=== PATIENT | female | born 1950 | race Hispanic/Latino ===

== ENCOUNTER 2018-01-05 19:37 | Inpatient (IN) | payer MEDICARE, BC ==
[2018-01-05 20:44] LABS: BASO # 0.1 K/uL (0.0-0.2); BASO % 1.1 % (0.0-2.0); EOS # 0.1 K/uL (0.0-0.7); EOS % 0.8 % (0.0-4.0); HEMOGLOBIN 14.3 g/dL (12.0-16.0); LYMPH # 2.7 K/uL (1.0-4.3); LYMPH % 39.3 % (20.0-40.0); MEAN CELL VOLUME 95.1 fl (81.0-99.0); MEAN CORPUSCULAR HGB CONC 33.6 g/dL (33.0-37.0); MEAN PLATELET VOLUME 8.6 fl (7.2-11.7); MONO # 0.6 K/uL (0.0-0.8); NEUT # 3.5 K/uL (1.8-7.0); NEUT % 50.8 % (50.0-75.0); RBC 4.47 Mil/uL (3.80-5.20); RED CELL DISTRIBUTION WIDTH 13.9 % (11.5-14.5); WHITE BLOOD COUNT 6.9 K/uL (4.8-10.8)
[2018-01-05 20:54] LABS: INR 0.9; PROTHROMBIN TIME 10.3 Seconds (9.8-13.1)
[2018-01-05 20:57] LABS: PARTIAL THROMBOPLASTIN TIME 29.2 Seconds (25.6-37.1)
[2018-01-05 21:02] LABS: ALB/GLOB RATIO 1.7 (1.0-2.1); ALT/SGPT 19 U/L (9-52); AST/SGOT 20 U/L (14-36); BLOOD UREA NITROGEN 12 mg/dl (7-17); CALCIUM 9.4 mg/dL (8.4-10.2); GFR NON-AFRICAN AMERICAN > 60
[2018-01-05 21:17] LABS: OPIATES, UR NEGATIVE (NEGATIVE)
--- NOTE | 2018-01-05 21:18 | ED PDOC ---
HPI: Psych/Substance Abuse Time Seen by Provider: 01/05/18 19:51 Chief Complaint (Nursing): Alcohol Ingestion Chief Complaint (Provider): Alcohol Ingestion ED Caveat: Intoxicated History Per: Patient, EMS History/Exam Limitations: intoxication Onset/Duration Of Symptoms: Hrs Current Symptoms Are (Timing): Still Present Modifying Factor(s): Alcohol Additional Complaint(s): Nisreen Cerrato is a 67 year old female with a past medical history of diabetes who was brought to the ED by EMS for evaluation of alcohol intoxication and fall at stoop of her building. Patient denies any head injury or loss of consciousness. She also complains of left hip pain, nausea, and vomiting. Further history was unobtainable due to patients intoxicated state. PMD: none provided Past Medical History Reviewed: Historical Data, Nursing Documentation, Vital Signs Vital Signs: Last Vital Signs Temp 98.2 F 01/05/18 19:41 Pulse 107 H 01/05/18 19:41 Resp 16 01/05/18 19:41 BP 205/100 H 01/05/18 19:41 Pulse Ox 95 01/05/18 19:41 - Medical History PMH: Diabetes (type II), HTN, Hypercholesterolemia, Hyperlipidemia, Pneumonia Denies: HIV, Chronic Kidney Disease - Surgical History Surgical History: - Family History Family History: States: Unknown Family Hx - Social History Current smoker - smoking cessation education provided: No Alcohol: > 2 Drinks/Day Drugs: Denies - Home Medications Home Medications: Ambulatory Orders Medication Instructions Recorded Atorvastatin [Lipitor] 10 mg PO DAILY 07/25/15 Olmesartan Medoxomil [Benicar] 40 mg PO DAILY 07/25/15 Azithromycin [Zithromax] 500 mg PO DAILY #10 tablet 07/28/15 Canagliflozin/Metformin HCl 1 tab PO BID #60 tab 07/28/15 [Invokamet 150-1,000 mg Tablet] Insulin Detemir [Levemir] 10 unit SC HS #0 08/06/15 SITagliptin [Januvia] 100 mg PO DAILY #0 tab 08/06/15 - Allergies Allergies/Adverse Reactions: Allergies Allergy/AdvReac Type Severity Reaction Status Date / Time No Known Allergies Allergy Verified 01/05/18 19:41 Review of Systems ROS Statement: Except As Marked, All Systems Reviewed And Found Negative Review Of Systems: ROS cannot be obtained secondary to pt's inabilty to answer questions. (unreliable) Gastrointestinal: Negative for: Nausea, Vomiting Musculoskeletal: Positive for: Other (Hip Pain) Neurological: Negative for: Other (loss of consciousness) Physical Exam - Reviewed Nursing Documentation Reviewed: Yes Vital Signs Reviewed: Yes - Physical Exam Appears: Positive for: Non-toxic, No Acute Distress Head Exam: Positive for: NORMAL INSPECTION, NORMOCEPHALIC. Negative for: ATRAUMATIC (abrasion to left forehead) Skin: Positive for: Normal Color, Warm, DRY Eye Exam: Positive for: EOMI, Normal appearance, PERRL ENT: Positive for: Normal ENT Inspection Neck: Positive for: Normal, Painless ROM Cardiovascular/Chest: Positive for: Regular Rate, Rhythm. Negative for: Murmur Respiratory: Positive for: Normal Breath Sounds. Negative for: Respiratory Distress Gastrointestinal/Abdominal: Positive for: Normal Exam, Soft Back: Positive for: Normal Inspection. Negative for: L CVA Tenderness, R CVA Tenderness Extremity: Positive for: Normal ROM. Negative for: Deformity, Swelling Neurologic/Psych: Positive for: Alert. Negative for: Motor/Sensory Deficits - Laboratory Results Result Diagrams: 01/05/18 20:19 01/05/18 20:19 - ECG O2 Sat by Pulse Oximetry: 95 (RA) Medical Decision Making Medical Decision Making: Time: 20:00 Impression: 67 year old female with fall in setting of alcohol abuse Plan: --CT Lower Extremity --CT Head --EKG --Alcohol Serum --CMP --Drug Screen --ED Urine Dipstick --CBC --PTT --Coag --Zofran 4 mg IV --Accucheck --Urinalysis CT Head: FINDINGS: Brain: Diffuse cerebral volume loss and chronic microvascular white matter changes. Ventricles: Unremarkable. Bones/joints: Unremarkable. No acute fracture. Soft tissues: Unremarkable. Sinuses: Unremarkable as visualized. Mastoid air cells: Unremarkable as visualized. IMPRESSION: No acute intracranial pathology or traumatic injury. CT Lower Extremity: FINDINGS: Bones/joints: Acute minimally displaced fracture of the left inferior ramus. Acute nondisplaced fracture of the posterior column of the left acetabulum with extension of the fracture plane into the left hip joint space. Small left hip joint effusion or hemarthrosis. No dislocation. Soft tissues: Unremarkable. IMPRESSION: Acute minimally displaced fracture of the left inferior ramus. Acute nondisplaced fracture of the posterior column of the left acetabulum with extension of the fracture plane into the left hip joint space. Small left hip joint effusion or hemarthrosis. 21:[address] Mejia. Patient will be admitted under Hospitalist for hip fracture. Scribe Attestation: Documented by Sandra Wlaker, acting as a scribe for Carlos Fowler MD. Provider Scribe Attestation: All medical record entries made by the Scribe were at my direction and personally dictated by me. I have reviewed the chart and agree that the record accurately reflects my personal performance of the history, physical exam, medical decision making, and the department course for this patient. I have also personally directed, reviewed, and agree with the discharge instructions and disposition. Disposition - Clinical Impression Clinical Impression: Hip fracture, left, Pubic ramus fracture - Patient ED Disposition Is Patient to be Admitted: Yes - Disposition Disposition Time: 21:55 Condition: STABLE
[2018-01-05 21:20] LABS: BARBITURATES, UR NEGATIVE (NEGATIVE); BENZODIAZEPINES, UR NEGATIVE (NEGATIVE); PHENCYCLIDINE, UR NEGATIVE (NEGATIVE)
[2018-01-05 21:25] LABS: SQUAMOUS EPITHIAL < 1 /hpf (0-5); URINE BACTERIA MOD (<OCC); URINE BILIRUBIN NEGATIVE (NEGATIVE); URINE BLOOD SMALL (NEGATIVE); URINE CLARITY SLIGHTY-CLOUDY (Clear); URINE COLOR STRAW (YELLOW); URINE GLUCOSE (UA) >=500 mg/dL (Normal); URINE LEUKOCYTE ESTERASE TRACE Leu/uL (Negative); URINE PROTEIN NEGATIVE (NEGATIVE); URINE UROBILINOGEN 0.2-1.0 mg/dL (0.2-1.0)
--- NOTE | 2018-01-05 22:13 | CP.PCM.HP ---
History of Present Illness - History of Present Illness History of Present Illness: CC: EtOH abuse, fall, L hip fx HPI: This is a 67 y/o female with HTN, HLD, and DM2 who comes in intoxicated and s/p a fall with L hip fracture. Patient was intoxicated after going out with some friends and having drinks at a nearby bar. She had returned home and sustained a fall from her stoop. She did not have any head trauma or LOC. She developed L hip pain soon after and was brought in. Patient denies any complaints at this time, states pain is controlled. Patient states in general she is active and functional. Able to walk multiple city blocks, climb several flights of stairs, and perform ADLs without problems. Patient denies CP/SOB/f/c. ROS: 14 systems reviewed, negative other than what is in HPI MHx: HTN, HLD, DM2, EtOH abuse SHx: C section Allergies: NKDA Medications: per med rec Family Hx: Cancer runs on father's side Social Hx: Lives with family, smokes 1 ppd, drinks several drinks a few times a week Surrogate Decision Maker: Son Present on Admission - Present on Admission Any Indicators Present on Admission: No Past Patient History - Past Medical History & Family History Past Medical History?: Yes - Past Social History Alcohol: > 2 Drinks/Day Drugs: Denies - CARDIAC Hx Hypercholesterolemia: Yes Hx Hypertension: Yes - PULMONARY Hx Pneumonia: Yes - NEUROLOGICAL Hx Neurological Disorder: No - HEENT Other/Comment: WEARS GLASSES - RENAL Hx Chronic Kidney Disease: No - ENDOCRINE/METABOLIC Hx Endocrine Disorders: Yes Hx Diabetes Mellitus Type 2: Yes - HEMATOLOGICAL/ONCOLOGICAL Hx Human Immunodeficiency Virus (HIV): No - INTEGUMENTARY Hx Dermatological Problems: No - MUSCULOSKELETAL/RHEUMATOLOGICAL Hx Musculoskeletal Disorders: No Hx Falls: No - GENITOURINARY/GYNECOLOGICAL Hx Genitourinary Disorders: No - PSYCHIATRIC Hx Substance Use: No - SURGICAL HISTORY Hx Surgeries: Yes Hx Section: Yes - ANESTHESIA Hx Anesthesia: Yes Hx Anesthesia Reactions: No Hx Malignant Hyperthermia: No Meds Allergies/Adverse Reactions: Allergies Allergy/AdvReac Type Severity Reaction Status Date / Time No Known Allergies Allergy Verified 01/05/18 19:41 Physical Exam - Constitutional Appears: No Acute Distress Additional comments: intoxicated - Head Exam Head Exam: ATRAUMATIC, NORMOCEPHALIC - Eye Exam Eye Exam: EOMI, PERRL - ENT Exam ENT Exam: Mucous Membranes Moist - Respiratory Exam Respiratory Exam: Clear to Auscultation Bilateral, NORMAL BREATHING PATTERN - Cardiovascular Exam Cardiovascular Exam: REGULAR RHYTHM, +S1, +S2 - GI/Abdominal Exam GI & Abdominal Exam: Normal Bowel Sounds, Soft - Extremities Exam Additional comments: L hip fx; limited mobility - Neurological Exam Neurological exam: Alert, Oriented x3 Additional comments: Patient is intoxicated - Psychiatric Exam Psychiatric exam: Normal Affect, Normal Mood - Skin Skin Exam: Dry, Warm Results - Vital Signs Recent Vital Signs: Last Vital Signs Temp 98.2 F 01/05/18 19:41 Pulse 107 H 01/05/18 19:41 Resp 16 01/05/18 19:41 BP 205/100 H 01/05/18 19:41 Pulse Ox 95 01/05/18 21:54 - Labs Result Diagrams: 01/05/18 20:19 01/05/18 20:19 Labs: Laboratory Results - last 24 hr 01/05/18 01/05/18 01/05/18 20:19 20:19 20:19 WBC 6.9 RBC 4.47 Hgb 14.3 Hct 42.5 MCV 95.1 D MCH 32.0 H MCHC 33.6 RDW 13.9 Plt Count 224 MPV 8.6 Neut % (Auto) 50.8 Lymph % (Auto) 39.3 [place] % (Auto) 8.0 Eos % (Auto) 0.8 Baso % (Auto) 1.1 Neut # (Auto) 3.5 Lymph # (Auto) 2.7 [place] # (Auto) 0.6 Eos # (Auto) 0.1 Baso # (Auto) 0.1 PT 10.3 INR 0.9 APTT 29.2 Sodium 139 Potassium 3.8 Chloride 100 Carbon Dioxide 21 L Anion Gap 22 H BUN 12 Creatinine 0.5 L Est GFR ( Amer) > 60 Est GFR (Non-Af Amer) > 60 Random Glucose 337 H Calcium 9.4 Total Bilirubin 0.2 AST 20 ALT 19 Alkaline Phosphatase 107 Total Protein 6.4 Albumin 4.0 Globulin 2.4 Albumin/Globulin Ratio 1.7 Urine Color Urine Clarity Urine pH Ur Specific [place] Urine Protein Urine Glucose (UA) Urine Ketones Urine Blood Urine Nitrate Urine Bilirubin Urine Urobilinogen Ur Leukocyte Esterase Urine RBC (Auto) Urine Microscopic WBC Ur Squamous Epith Cells Urine Bacteria Urine Opiates Screen Urine Methadone Screen Ur Barbiturates Screen Ur Phencyclidine Scrn Ur Amphetamines Screen U Benzodiazepines Scrn U Oth Cocaine Metabols U Cannabinoids Screen Alcohol, Quantitative 189 H 01/05/18 01/05/18 20:50 20:50 WBC RBC Hgb Hct MCV MCH MCHC RDW Plt Count MPV Neut % (Auto) Lymph % (Auto) [place] % (Auto) Eos % (Auto) Baso % (Auto) Neut # (Auto) Lymph # (Auto) [place] # (Auto) Eos # (Auto) Baso # (Auto) PT INR APTT Sodium Potassium Chloride Carbon Dioxide Anion Gap BUN Creatinine Est GFR ( Amer) Est GFR (Non-Af Amer) Random Glucose Calcium Total Bilirubin AST ALT Alkaline Phosphatase Total Protein Albumin Globulin Albumin/Globulin Ratio Urine Color Straw Urine Clarity Slighty-cloudy Urine pH 6.0 Ur Specific [place] 1.026 Urine Protein Negative Urine Glucose (UA) >=500 Urine Ketones 20 Urine Blood Small Urine Nitrate Positive H Urine Bilirubin Negative Urine Urobilinogen 0.2-1.0 Ur Leukocyte Esterase Trace Urine RBC (Auto) 2 Urine Microscopic WBC 5 Ur Squamous Epith Cells < 1 Urine Bacteria Mod H Urine Opiates Screen Negative Urine Methadone Screen Negative Ur Barbiturates Screen Negative Ur Phencyclidine Scrn Negative Ur Amphetamines Screen Negative U Benzodiazepines Scrn Negative U Oth Cocaine Metabols Negative U Cannabinoids Screen Negative Alcohol, Quantitative Assessment & Plan (1) Hip fracture, left Assessment and Plan: 67 y/o female with fall in setting of EtOH intoxication resulting in L hip fracture. 1) Fall/L hip fx -NPO, IVF in prep for possible surgery -Roberto consult in AM -EKG and CXR prior to surgery -Pain control per scale 2) DM2 -q6h accuchecks and SSI -Hold other medications while patient is NPO 3) HTN/HLD -- cont home medications 4) EtOH abuse -- watch for any signs of EtOH w/d 5) DVT PPx -- SCDs Status: Acute (2) DM2 (diabetes mellitus, type 2) Status: Acute (3) Hyperlipidemia Status: Chronic (4) Hypertension Status: Chronic (5) DVT prophylaxis Status: Acute
[2018-01-05] MEDS: Insulin Lispro (humaLOG) 100 Units/ml Inj SC SCH (23:45)
[2018-01-05] MEDS: Lactated Ringer's 1,000 ML IV SCH (23:49)
[2018-01-05 23:51] VITALS: O2SAT 96
[2018-01-06] MEDS: Insulin Lispro (humaLOG) 100 Units/ml Inj SC SCH ×3 (05:27→16:17)
[2018-01-06 06:35] LABS: HEMOGLOBIN 13.8 g/dL (12.0-16.0); MEAN CELL VOLUME 94.4 fl (81.0-99.0); MEAN CORPUSCULAR HEMOGLOBIN 31.9 pg (27.0-31.0); MEAN CORPUSCULAR HGB CONC 33.8 g/dL (33.0-37.0); RBC 4.32 Mil/uL (3.80-5.20); RED CELL DISTRIBUTION WIDTH 13.9 % (11.5-14.5); WHITE BLOOD COUNT 8.4 K/uL (4.8-10.8)
[2018-01-06 06:41] LABS: BLOOD UREA NITROGEN 14 mg/dl (7-17); CALCIUM 9.3 mg/dL (8.4-10.2); GFR NON-AFRICAN AMERICAN > 60
--- NOTE | 2018-01-06 08:12 | CP.PCM.CON ---
History of Present Illness - History of Present Illness History of Present Illness: Orthopedic consultation Dr. Mejia 67F complains of left hip/groin pain after fall yesterday. She says she was out with friends and fell as she was coming home. +ETOH most days. She denies head ache, head injury, pain in other extremities, numbness/tingling/CP/SOB/n/v. She was unable to walk after fall. At baseline she ambulates without assistive device, lives with son on 2nd floor walk up. PMH: HTN, DM, ETOH +smoker, smoking cessation advised Review of Systems - Review of Systems All systems: reviewed and no additional remarkable complaints except - Cardiovascular Cardiovascular: As Per HPI - Respiratory Respiratory: As Per HPI - Gastrointestinal Gastrointestinal: As Per HPI - Musculoskeletal Musculoskeletal: As Per HPI - Neurological Neurological: As Per HPI - Hematologic/Lymphatic Hematologic: absent: As Per HPI, Easy Bleeding, Easy Bruising, Lymphadenopathy, Other Past Patient History - Past Medical History & Family History Past Medical History?: Yes Past Family History: Reviewed and not pertinent - Past Social History Smoking Status: Heavy Smoker > 10 Cigarettes Daily - CARDIAC Hx Cardiac Disorders: Yes Hx Hypercholesterolemia: Yes Hx Hypertension: Yes - PULMONARY Hx Respiratory Disorders: Yes Hx Pneumonia: Yes - NEUROLOGICAL Hx Neurological Disorder: No - HEENT Hx HEENT Problems: Yes Other/Comment: WEARS GLASSES - RENAL Hx Chronic Kidney Disease: No - ENDOCRINE/METABOLIC Hx Endocrine Disorders: Yes Hx Diabetes Mellitus Type 2: Yes - HEMATOLOGICAL/ONCOLOGICAL Hx Blood Disorders: No Hx Human Immunodeficiency Virus (HIV): No - INTEGUMENTARY Hx Dermatological Problems: No - MUSCULOSKELETAL/RHEUMATOLOGICAL Hx Musculoskeletal Disorders: No Hx Falls: No - GASTROINTESTINAL Hx Gastrointestinal Disorders: No - GENITOURINARY/GYNECOLOGICAL Hx Genitourinary Disorders: No - PSYCHIATRIC Hx Psychophysiologic Disorder: No Hx Substance Use: No - SURGICAL HISTORY Hx Surgeries: Yes Hx Section: Yes - ANESTHESIA Hx Anesthesia: Yes Hx Anesthesia Reactions: No Hx Malignant Hyperthermia: No Meds Allergies/Adverse Reactions: Allergies Allergy/AdvReac Type Severity Reaction Status Date / Time squid Allergy RASH Verified 01/06/18 05:33 - Medications Medications: Current Medications Atorvastatin Calcium (Lipitor) 10 mg PO DAILY [facility] Lactated Ringer's (Lactated Ringer's) 1,000 mls @ 100 mls/hr IV .Q10H [facility] Last Admin: 01/05/18 23:49 Dose: 100 mls/hr Ibuprofen (Motrin Tab) 400 mg PO Q6H PRN PRN Reason: Pain, Mild (1-3) Insulin Detemir (Levemir) 15 units SC HS [facility] Insulin Human Lispro (Humalog) 0 units SC Q6H [facility] PRN Reason: Protocol Last Admin: 01/06/18 05:27 Dose: Not Given Insulin Human Lispro (Humalog) 0 units SC ACHS [facility] PRN Reason: Protocol Losartan Potassium (Cozaar) 100 mg PO DAILY [facility] Morphine Sulfate (Morphine) 2 mg IVP Q4 PRN PRN Reason: Pain, moderate (4-7) Last Admin: 01/06/18 05:24 Dose: 2 mg Nicotine (Nicoderm Cq) 1 patch TD DAILY [facility] Ondansetron HCl (Zofran Inj) 4 mg IVP Q6 PRN PRN Reason: Nausea/Vomiting Last Admin: 01/06/18 05:30 Dose: 4 mg Sitagliptin Phosphate (Januvia) 25 mg PO DAILY [facility] Physical Exam - Constitutional Appears: Well, No Acute Distress - Head Exam Head Exam: ATRAUMATIC - Neck Exam Neck exam: Positive for: Full Rom, Normal Inspection - Respiratory Exam Respiratory Exam: NORMAL BREATHING PATTERN - Cardiovascular Exam Additional comments: +DP/PT pulses - Extremities Exam Additional comments: sitting in chair in NAD sensation intact calves soft NT neg homans - Expanded Lower Extremities Exam Left Hip exam: tenderness Knee exam: full ROM, normal inspection Ankle exam: FULL ROM, NORMAL INSPECTION Neuro vacular tendon exam: no vascular compromise - Neurological Exam Neurological exam: Alert, Oriented x3 - Psychiatric Exam Psychiatric exam: Normal Affect, Normal Mood - Skin Skin Exam: Dry, Intact, Normal Color, Warm Results - Vital Signs Recent Vital Signs: Last Vital Signs Temp 98.8 F 01/06/18 07:43 Pulse 92 H 01/06/18 07:43 Resp 19 01/06/18 07:43 BP 134/62 01/06/18 07:43 Pulse Ox 96 01/06/18 07:43 - Labs Result Diagrams: 01/06/18 05:15 01/06/18 05:15 Labs: Laboratory Results - last 24 hr 01/05/18 01/05/18 01/05/18 20:19 20:19 20:19 WBC 6.9 RBC 4.47 Hgb 14.3 Hct 42.5 MCV 95.1 D MCH 32.0 H MCHC 33.6 RDW 13.9 Plt Count 224 MPV 8.6 Neut % (Auto) 50.8 Lymph % (Auto) 39.3 [place] % (Auto) 8.0 Eos % (Auto) 0.8 Baso % (Auto) 1.1 Neut # (Auto) 3.5 Lymph # (Auto) 2.7 [place] # (Auto) 0.6 Eos # (Auto) 0.1 Baso # (Auto) 0.1 PT 10.3 INR 0.9 APTT 29.2 Sodium 139 Potassium 3.8 Chloride 100 Carbon Dioxide 21 L Anion Gap 22 H BUN 12 Creatinine 0.5 L Est GFR ( Amer) > 60 Est GFR (Non-Af Amer) > 60 Random Glucose 337 H Calcium 9.4 Total Bilirubin 0.2 AST 20 ALT 19 Alkaline Phosphatase 107 Total Protein 6.4 Albumin 4.0 Globulin 2.4 Albumin/Globulin Ratio 1.7 Urine Color Urine Clarity Urine pH Ur Specific [place] Urine Protein Urine Glucose (UA) Urine Ketones Urine Blood Urine Nitrate Urine Bilirubin Urine Urobilinogen Ur Leukocyte Esterase Urine RBC (Auto) Urine Microscopic WBC Ur Squamous Epith Cells Urine Bacteria Urine Opiates Screen Urine Methadone Screen Ur Barbiturates Screen Ur Phencyclidine Scrn Ur Amphetamines Screen U Benzodiazepines Scrn U Oth Cocaine Metabols U Cannabinoids Screen Alcohol, Quantitative 189 H 01/05/18 01/05/18 01/06/18 20:50 20:50 05:15 WBC 8.4 RBC 4.32 Hgb 13.8 Hct 40.8 MCV 94.4 MCH 31.9 H MCHC 33.8 RDW 13.9 Plt Count 220 MPV Neut % (Auto) Lymph % (Auto) [place] % (Auto) Eos % (Auto) Baso % (Auto) Neut # (Auto) Lymph # (Auto) [place] # (Auto) Eos # (Auto) Baso # (Auto) PT INR APTT Sodium Potassium Chloride Carbon Dioxide Anion Gap BUN Creatinine Est GFR ( Amer) Est GFR (Non-Af Amer) Random Glucose Calcium Total Bilirubin AST ALT Alkaline Phosphatase Total Protein Albumin Globulin Albumin/Globulin Ratio Urine Color Straw Urine Clarity Slighty-cloudy Urine pH 6.0 Ur Specific [place] 1.026 Urine Protein Negative Urine Glucose (UA) >=500 Urine Ketones 20 Urine Blood Small Urine Nitrate Positive H Urine Bilirubin Negative Urine Urobilinogen 0.2-1.0 Ur Leukocyte Esterase Trace Urine RBC (Auto) 2 Urine Microscopic WBC 5 Ur Squamous Epith Cells < 1 Urine Bacteria Mod H Urine Opiates Screen Negative Urine Methadone Screen Negative Ur Barbiturates Screen Negative Ur Phencyclidine Scrn Negative Ur Amphetamines Screen Negative U Benzodiazepines Scrn Negative U Oth Cocaine Metabols Negative U Cannabinoids Screen Negative Alcohol, Quantitative 01/06/18 05:15 WBC RBC Hgb Hct MCV MCH MCHC RDW Plt Count MPV Neut % (Auto) Lymph % (Auto) [place] % (Auto) Eos % (Auto) Baso % (Auto) Neut # (Auto) Lymph # (Auto) [place] # (Auto) Eos # (Auto) Baso # (Auto) PT INR APTT Sodium 140 Potassium 4.5 Chloride 102 Carbon Dioxide 23 Anion Gap 20 BUN 14 Creatinine 0.5 L Est GFR ( Amer) > 60 Est GFR (Non-Af Amer) > 60 Random Glucose 185 H Calcium 9.3 Total Bilirubin AST ALT Alkaline Phosphatase Total Protein Albumin Globulin Albumin/Globulin Ratio Urine Color Urine Clarity Urine pH Ur Specific [place] Urine Protein Urine Glucose (UA) Urine Ketones Urine Blood Urine Nitrate Urine Bilirubin Urine Urobilinogen Ur Leukocyte Esterase Urine RBC (Auto) Urine Microscopic WBC Ur Squamous Epith Cells Urine Bacteria Urine Opiates Screen Urine Methadone Screen Ur Barbiturates Screen Ur Phencyclidine Scrn Ur Amphetamines Screen U Benzodiazepines Scrn U Oth Cocaine Metabols U Cannabinoids Screen Alcohol, Quantitative < 10 - Impressions Impression: atient Name / ID : PERRI TARIQ / [id number] Exam Date : 01/05/2018 20:53:58 ( Approved ) Study Comment : Sex / Age : F / [id number] Creator : Elie Enriquez MD Dictator : Elie Enriquez MD Stage Technician : Seed Corn Manager Production : Elie Enriquez MD Approver2 : Report Date : 01/06/2018 09:58:12 My Comment : Date of service: 01/05/2018 PROCEDURE: CT of the Left Hip. HISTORY: hip pain COMPARISON: None available. TECHNIQUE: Contiguous axial images of the left hip were obtained. Coronal and sagittal reformats were generated. This CT exam was performed using one or more of the following dose reduction techniques: Automated exposure control, adjustment of the mA and/or kV according to patient size, and/or use of iterative reconstruction technique. Radiation dose: Total DLP = 594.00 mGy-cm FINDINGS: BONES: There is a comminuted fracture of the posterior column of the left acetabulum extending into the hip joint spaces. There is also a fracture of the left inferior pubic ramus. Left femoral head and neck intact and appropriately located. LEFT HIP JOINT: Unremarkable. No dislocation. No degenerative changes. SOFT TISSUES: Suspect the diffusion-hemarthrosis There is an elliptical shaped cystic structure within the left aspect of the pelvis that measures approximately 7.4 x 5.0 x 3.8 cm likely representing a large left adnexal cyst. Pelvic ultrasound followup could B performed to confirm IMPRESSION: Unremarkable CT of the left hip. Fracture of the posterior column left acetabulum and left inferior pubic ramus with suspected small hemarthrosis. No evidence of dislocation. Of large left adnexal cyst. Follow-up pelvic ultrasound could confirm. Assessment & Plan (1) Closed left acetabular fracture Assessment and Plan: non operative strict NWB LLE VTE proph PT/OT pain mgmt resume diet adnexal mass noted on hip CT, defer to hospitalist, notified d/w Dr. Mejia, agrees with above Status: Acute (2) Closed fracture of left inferior pubic ramus Assessment and Plan: see above Status: Acute (3) UTI (urinary tract infection) Assessment and Plan: UTI on admission +nitrites defer to medical team for mgmt ucx ordered Status: Acute
--- NOTE | 2018-01-06 08:29 | CARD ---
APPROVED REPORT Date of service: 01/05/2018 <Conclusion> Normal sinus rhythm Possible Anterior infarct, age undetermined Abnormal ECG
[2018-01-06] MEDS: Lactated Ringer's 1,000 ML IV SCH (09:11)
--- NOTE | 2018-01-06 09:28 | CT ---
Date of service: 01/05/2018 PROCEDURE: CT HEAD WITHOUT CONTRAST. HISTORY: head injury COMPARISON: None available. TECHNIQUE: Axial computed tomography images were obtained through the head/brain without intravenous contrast. Radiation dose: Total exam DLP = 877.14 mGy-cm. This CT exam was performed using one or more of the following dose reduction techniques: Automated exposure control, adjustment of the mA and/or kV according to patient size, and/or use of iterative reconstruction technique. FINDINGS: HEMORRHAGE: No intracranial hemorrhage. BRAIN: There is mild diffuse/confluent chronic periventricular white matter ischemic changes seen extending peripherally into the deep and subcortical white matter both cerebral hemispheres. Significant central volume loss evidenced by disproportionate enlargement of the ventricles compared sulci. Mild vascular calcifications both carotid siphons. VENTRICLES: Marked dilatation of the 3rd and lateral ventricles felt to be secondary to significant central volume loss. The ventricles do not appear to be under tension CALVARIUM: Calvarium intact PARANASAL SINUSES: Unremarkable as visualized. No significant inflammatory changes. MASTOID AIR CELLS: Unremarkable as visualized. No inflammatory changes. OTHER FINDINGS: None. IMPRESSION: No acute intracranial hemorrhage. Mild diffuse confluent chronic white matter ischemic changes. Significant central volume loss with marked disproportion enlargement of the ventricles compared sulci.
--- NOTE | 2018-01-06 10:00 | CT ---
Date of service: 01/05/2018 PROCEDURE: CT of the Left Hip. HISTORY: hip pain COMPARISON: None available. TECHNIQUE: Contiguous axial images of the left hip were obtained. Coronal and sagittal reformats were generated. This CT exam was performed using one or more of the following dose reduction techniques: Automated exposure control, adjustment of the mA and/or kV according to patient size, and/or use of iterative reconstruction technique. Radiation dose: Total DLP = 594.00 mGy-cm FINDINGS: BONES: There is a comminuted fracture of the posterior column of the left acetabulum extending into the hip joint spaces. There is also a fracture of the left inferior pubic ramus. Left femoral head and neck intact and appropriately located. LEFT HIP JOINT: Unremarkable. No dislocation. No degenerative changes. SOFT TISSUES: Suspect the diffusion-hemarthrosis There is an elliptical shaped cystic structure within the left aspect of the pelvis that measures approximately 7.4 x 5.0 x 3.8 cm likely representing a large left adnexal cyst. Pelvic ultrasound followup could B performed to confirm IMPRESSION: Unremarkable CT of the left hip. Fracture of the posterior column left acetabulum and left inferior pubic ramus with suspected small hemarthrosis. No evidence of dislocation. Of large left adnexal cyst. Follow-up pelvic ultrasound could confirm.
--- NOTE | 2018-01-06 10:02 | CP.PCM.PN ---
<Madi Prabhakar - Last Filed: 01/06/18 11:19> Subjective - Date & Time of Evaluation Date of Evaluation: 01/06/18 Time of Evaluation: 08:15 - Subjective Subjective: No overnight events. Patient sitting up in bed, no complaints. Pain controlled. Objective - Vital Signs/Intake and Output Vital Signs (last 24 hours): Temp Pulse Resp BP Pulse Ox 98.8 F 92 H 19 134/62 96 01/06/18 07:43 01/06/18 07:43 01/06/18 07:43 01/06/18 07:43 01/06/18 07:43 Intake and Output: 01/06/18 01/06/18 06:59 18:59 Intake Total 500 Output Total 1100 Balance -600 - Medications Medications: Current Medications Atorvastatin Calcium (Lipitor) 10 mg PO DAILY [facility] Last Admin: 01/06/18 09:08 Dose: 10 mg Lactated Ringer's (Lactated Ringer's) 1,000 mls @ 100 mls/hr IV .Q10H [facility] Last Admin: 01/06/18 09:11 Dose: 100 mls/hr Ibuprofen (Motrin Tab) 400 mg PO Q6H PRN PRN Reason: Pain, Mild (1-3) Insulin Detemir (Levemir) 15 units SC HS [facility] Insulin Human Lispro (Humalog) 0 units SC ACHS [facility] PRN Reason: Protocol Losartan Potassium (Cozaar) 100 mg PO DAILY [facility] Last Admin: 01/06/18 09:07 Dose: 100 mg Morphine Sulfate (Morphine) 2 mg IVP Q4 PRN PRN Reason: Pain, moderate (4-7) Last Admin: 01/06/18 05:24 Dose: 2 mg Nicotine (Nicoderm Cq) 1 patch TD DAILY [facility] Last Admin: 01/06/18 09:07 Dose: 1 patch Ondansetron HCl (Zofran Inj) 4 mg IVP Q6 PRN PRN Reason: Nausea/Vomiting Last Admin: 01/06/18 05:30 Dose: 4 mg Sitagliptin Phosphate (Januvia) 25 mg PO DAILY [facility] - Labs Labs: 01/06/18 05:15 01/06/18 05:15 PT 10.3 Seconds (9.8-13.1) 01/05/18 20:19 INR 0.9 01/05/18 20:19 APTT 29.2 Seconds (25.6-37.1) 01/05/18 20:19 - Constitutional Appears: Non-toxic, No Acute Distress - Head Exam Head Exam: ATRAUMATIC, NORMAL INSPECTION, NORMOCEPHALIC - Respiratory Exam Respiratory Exam: NORMAL BREATHING PATTERN - Cardiovascular Exam Cardiovascular Exam: REGULAR RHYTHM, +S1, +S2 - Neurological Exam Neurological Exam: Alert, Awake - Psychiatric Exam Psychiatric exam: Normal Affect, Normal Mood - Skin Skin Exam: Dry, Intact Assessment and Plan - Assessment and Plan (Free Text) Assessment: 67 y/o female with fall in setting of EtOH intoxication resulting in L hip fracture. (1) Hip fracture, left -status post fall -NPO, IVF in prep for possible surgery -Roberto consult in AM -Pain control per scale 2) DM2 -insulin dependent, chronic -achs accuschecks and sliding scale -Hold other medications while patient is NPO 3) HTN/HLD -- cont home medications 4) EtOH abuse -- watch for any signs of EtOH w/d 5) DVT PPx -- SCDs, pt may go to OR <Ada Phillips - Last Filed: 01/06/18 18:14> Objective - Vital Signs/Intake and Output Vital Signs (last 24 hours): Temp Pulse Resp BP Pulse Ox 98.6 F 92 H 18 166/72 H 96 01/06/18 16:06 01/06/18 16:06 01/06/18 16:06 01/06/18 16:06 01/06/18 16:06 Intake and Output: 01/06/18 01/06/18 06:59 18:59 Intake Total 500 Output Total 1100 Balance -600 - Labs Labs: 01/06/18 05:15 01/06/18 05:15 PT 10.3 Seconds (9.8-13.1) 01/05/18 20:19 INR 0.9 01/05/18 20:19 APTT 29.2 Seconds (25.6-37.1) 01/05/18 20:19 Attending/Attestation - Attestation I have personally seen and examined this patient.: Yes I have fully participated in the care of the patient.: Yes I have reviewed all pertinent clinical information, including history, physical exam and plan: Yes Notes (Text): 01/06/18 18:14 Seen, examined, and discussed with residents Drs. Prabhakar and Brady. Agree with findings and plan as above.
--- NOTE | 2018-01-06 11:59 | RAD ---
Date of service: 01/05/2018 HISTORY: admit COMPARISON: Comparison made with chest radiograph 08/03/2015. FINDINGS: LUNGS: No active pulmonary disease. PLEURA: No significant pleural effusion identified, no pneumothorax apparent. CARDIOVASCULAR: Normal. OSSEOUS STRUCTURES: No significant abnormalities. VISUALIZED UPPER ABDOMEN: Normal. OTHER FINDINGS: None. IMPRESSION: No active disease.
--- NOTE | 2018-01-06 13:40 | CP.PCM.DIS ---
<Madi Prabhakar - Last Filed: 01/06/18 15:14> Provider - Provider Date of Admission: 01/05/18 21:41 Attending physician: Weston Rogers MD Time Spent in preparation of Discharge (in minutes): 35 Diagnosis - Discharge Diagnosis (1) Closed fracture of left inferior pubic ramus Status: Acute (2) Closed left acetabular fracture Status: Acute (3) DM2 (diabetes mellitus, type 2) Status: Chronic Comment: resume [facility] Hospital Course - Lab Results Lab Results: Most Recent Lab Values WBC 8.4 K/uL (4.8-10.8) 01/06/18 05:15 RBC 4.32 Mil/uL (3.80-5.20) 01/06/18 05:15 Hgb 13.8 g/dL (12.0-16.0) 01/06/18 05:15 Hct 40.8 % (34.0-47.0) 01/06/18 05:15 MCV 94.4 fl (81.0-99.0) 01/06/18 05:15 MCH 31.9 pg (27.0-31.0) H 01/06/18 05:15 MCHC 33.8 g/dL (33.0-37.0) 01/06/18 05:15 RDW 13.9 % (11.5-14.5) 01/06/18 05:15 Plt Count 220 K/uL (130-400) 01/06/18 05:15 MPV 8.6 fl (7.2-11.7) 01/05/18 20:19 Neut % (Auto) 50.8 % (50.0-75.0) 01/05/18 20:19 Lymph % (Auto) 39.3 % (20.0-40.0) 01/05/18 20:19 Andrews % (Auto) 8.0 % (0.0-10.0) 01/05/18 20:19 Eos % (Auto) 0.8 % (0.0-4.0) 01/05/18 20:19 Baso % (Auto) 1.1 % (0.0-2.0) 01/05/18 20:19 Neut # (Auto) 3.5 K/uL (1.8-7.0) 01/05/18 20:19 Lymph # (Auto) 2.7 K/uL (1.0-4.3) 01/05/18 20:19 Andrews # (Auto) 0.6 K/uL (0.0-0.8) 01/05/18 20:19 Eos # (Auto) 0.1 K/uL (0.0-0.7) 01/05/18 20:19 Baso # (Auto) 0.1 K/uL (0.0-0.2) 01/05/18 20:19 PT 10.3 Seconds (9.8-13.1) 01/05/18 20:19 INR 0.9 01/05/18 20:19 APTT 29.2 Seconds (25.6-37.1) 01/05/18 20:19 Sodium 140 mmol/l (132-148) 01/06/18 05:15 Potassium 4.5 MMOL/L (3.6-5.0) 01/06/18 05:15 Chloride 102 mmol/L (98-107) 01/06/18 05:15 Carbon Dioxide 23 mmol/L (22-30) 01/06/18 05:15 Anion Gap 20 (10-20) 01/06/18 05:15 BUN 14 mg/dl (7-17) 01/06/18 05:15 Creatinine 0.5 mg/dl (0.7-1.2) L 01/06/18 05:15 Est GFR ( Amer) > 60 01/06/18 05:15 Est GFR (Non-Af Amer) > 60 01/06/18 05:15 POC Glucose (mg/dL) 172 mg/dL (65-110) H 01/06/18 10:48 Random Glucose 185 mg/dL (65-105) H 01/06/18 05:15 Calcium 9.3 mg/dL (8.4-10.2) 01/06/18 05:15 Total Bilirubin 0.2 mg/dl (0.2-1.3) 01/05/18 20:19 AST 20 U/L (14-36) 01/05/18 20:19 ALT 19 U/L (9-52) 01/05/18 20:19 Alkaline Phosphatase 107 U/L (38-126) 01/05/18 20:19 Total Protein 6.4 G/DL (6.3-8.2) 01/05/18 20:19 Albumin 4.0 g/dL (3.5-5.0) 01/05/18 20:19 Globulin 2.4 gm/dL (2.2-3.9) 01/05/18 20:19 Albumin/Globulin Ratio 1.7 (1.0-2.1) 01/05/18 20:19 Urine Color Straw (YELLOW) 01/05/18 20:50 Urine Clarity Slighty-cloudy (Clear) 01/05/18 20:50 Urine pH 6.0 (5.0-8.0) 01/05/18 20:50 Ur Specific [place] 1.026 (1.003-1.030) 01/05/18 20:50 Urine Protein Negative mg/dL (NEGATIVE) 01/05/18 20:50 Urine Glucose (UA) >=500 mg/dL (Normal) 01/05/18 20:50 Urine Ketones 20 mg/dL (NEGATIVE) 01/05/18 20:50 Urine Blood Small (NEGATIVE) 01/05/18 20:50 Urine Nitrate Positive (NEGATIVE) H 01/05/18 20:50 Urine Bilirubin Negative (NEGATIVE) 01/05/18 20:50 Urine Urobilinogen 0.2-1.0 mg/dL (0.2-1.0) 01/05/18 20:50 Ur Leukocyte Esterase Trace Rosmery/uL (Negative) 01/05/18 20:50 Urine RBC (Auto) 2 /hpf (0-3) 01/05/18 20:50 Urine Microscopic WBC 5 /hpf (0-5) 01/05/18 20:50 Ur Squamous Epith Cells < 1 /hpf (0-5) 01/05/18 20:50 Urine Bacteria Mod (<OCC) H 01/05/18 20:50 Urine Opiates Screen Negative (NEGATIVE) 01/05/18 20:50 Urine Methadone Screen Negative (NEGATIVE) 01/05/18 20:50 Ur Barbiturates Screen Negative (NEGATIVE) 01/05/18 20:50 Ur Phencyclidine Scrn Negative (NEGATIVE) 01/05/18 20:50 Ur Amphetamines Screen Negative (NEGATIVE) 01/05/18 20:50 U Benzodiazepines Scrn Negative (NEGATIVE) 01/05/18 20:50 U Oth Cocaine Metabols Negative (NEGATIVE) 01/05/18 20:50 U Cannabinoids Screen Negative (NEGATIVE) 01/05/18 20:50 Alcohol, Quantitative < 10 mg/dl (0-10) 01/06/18 05:15 - Hospital Course Hospital Course: 67 year old female admitted in setting of EtOH intoxication s/p fall resulting in left acetabulum and left inferior pubic ramus. Seen and evaluated by Ortho no surgical intervention. UA showed positive nitrates/trace leukes. Urine culture pending. Head CT negative. Pt discharged to Acute Rehab Unit. Discharge Plan - Follow Up Plan Condition: STABLE Disposition: REHAB FACILITY/REHAB UNIT Instructions: Hip Fracture Referrals: Irvin Mejia III, MD [Staff Provider] - <Ada Phillips - Last Filed: 01/06/18 18:18> Provider - Provider Date of Admission: 01/05/18 21:41 Attending physician: Weston Rogers MD Hospital Course - Lab Results Lab Results: Most Recent Lab Values WBC 8.4 K/uL (4.8-10.8) 01/06/18 05:15 RBC 4.32 Mil/uL (3.80-5.20) 01/06/18 05:15 Hgb 13.8 g/dL (12.0-16.0) 01/06/18 05:15 Hct 40.8 % (34.0-47.0) 01/06/18 05:15 MCV 94.4 fl (81.0-99.0) 01/06/18 05:15 MCH 31.9 pg (27.0-31.0) H 01/06/18 05:15 MCHC 33.8 g/dL (33.0-37.0) 01/06/18 05:15 RDW 13.9 % (11.5-14.5) 01/06/18 05:15 Plt Count 220 K/uL (130-400) 01/06/18 05:15 MPV 8.6 fl (7.2-11.7) 01/05/18 20:19 Neut % (Auto) 50.8 % (50.0-75.0) 01/05/18 20:19 Lymph % (Auto) 39.3 % (20.0-40.0) 01/05/18 20:19 Andrews % (Auto) 8.0 % (0.0-10.0) 01/05/18 20:19 Eos % (Auto) 0.8 % (0.0-4.0) 01/05/18 20:19 Baso % (Auto) 1.1 % (0.0-2.0) 01/05/18 20:19 Neut # (Auto) 3.5 K/uL (1.8-7.0) 01/05/18 20:19 Lymph # (Auto) 2.7 K/uL (1.0-4.3) 01/05/18 20:19 Andrews # (Auto) 0.6 K/uL (0.0-0.8) 01/05/18 20:19 Eos # (Auto) 0.1 K/uL (0.0-0.7) 01/05/18 20:19 Baso # (Auto) 0.1 K/uL (0.0-0.2) 01/05/18 20:19 PT 10.3 Seconds (9.8-13.1) 01/05/18 20:19 INR 0.9 01/05/18 20:19 APTT 29.2 Seconds (25.6-37.1) 01/05/18 20:19 Sodium 140 mmol/l (132-148) 01/06/18 05:15 Potassium 4.5 MMOL/L (3.6-5.0) 01/06/18 05:15 Chloride 102 mmol/L (98-107) 01/06/18 05:15 Carbon Dioxide 23 mmol/L (22-30) 01/06/18 05:15 Anion Gap 20 (10-20) 01/06/18 05:15 BUN 14 mg/dl (7-17) 01/06/18 05:15 Creatinine 0.5 mg/dl (0.7-1.2) L 01/06/18 05:15 Est GFR ( Amer) > 60 01/06/18 05:15 Est GFR (Non-Af Amer) > 60 01/06/18 05:15 POC Glucose (mg/dL) 247 mg/dL (65-110) H 01/06/18 15:40 Random Glucose 185 mg/dL (65-105) H 01/06/18 05:15 Calcium 9.3 mg/dL (8.4-10.2) 01/06/18 05:15 Total Bilirubin 0.2 mg/dl (0.2-1.3) 01/05/18 20:19 AST 20 U/L (14-36) 01/05/18 20:19 ALT 19 U/L (9-52) 01/05/18 20:19 Alkaline Phosphatase 107 U/L (38-126) 01/05/18 20:19 Total Protein 6.4 G/DL (6.3-8.2) 01/05/18 20:19 Albumin 4.0 g/dL (3.5-5.0) 01/05/18 20:19 Globulin 2.4 gm/dL (2.2-3.9) 01/05/18 20:19 Albumin/Globulin Ratio 1.7 (1.0-2.1) 01/05/18 20:19 25-OH Vitamin D Total 37.0 NG/ML (30.0-100.0) 01/06/18 09:11 Urine Color Straw (YELLOW) 01/05/18 20:50 Urine Clarity Slighty-cloudy (Clear) 01/05/18 20:50 Urine pH 6.0 (5.0-8.0) 01/05/18 20:50 Ur Specific [place] 1.026 (1.003-1.030) 01/05/18 20:50 Urine Protein Negative mg/dL (NEGATIVE) 01/05/18 20:50 Urine Glucose (UA) >=500 mg/dL (Normal) 01/05/18 20:50 Urine Ketones 20 mg/dL (NEGATIVE) 01/05/18 20:50 Urine Blood Small (NEGATIVE) 01/05/18 20:50 Urine Nitrate Positive (NEGATIVE) H 01/05/18 20:50 Urine Bilirubin Negative (NEGATIVE) 01/05/18 20:50 Urine Urobilinogen 0.2-1.0 mg/dL (0.2-1.0) 01/05/18 20:50 Ur Leukocyte Esterase Trace Rosmery/uL (Negative) 01/05/18 20:50 Urine RBC (Auto) 2 /hpf (0-3) 01/05/18 20:50 Urine Microscopic WBC 5 /hpf (0-5) 01/05/18 20:50 Ur Squamous Epith Cells < 1 /hpf (0-5) 01/05/18 20:50 Urine Bacteria Mod (<OCC) H 01/05/18 20:50 Urine Opiates Screen Negative (NEGATIVE) 01/05/18 20:50 Urine Methadone Screen Negative (NEGATIVE) 01/05/18 20:50 Ur Barbiturates Screen Negative (NEGATIVE) 01/05/18 20:50 Ur Phencyclidine Scrn Negative (NEGATIVE) 01/05/18 20:50 Ur Amphetamines Screen Negative (NEGATIVE) 01/05/18 20:50 U Benzodiazepines Scrn Negative (NEGATIVE) 01/05/18 20:50 U Oth Cocaine Metabols Negative (NEGATIVE) 01/05/18 20:50 U Cannabinoids Screen Negative (NEGATIVE) 01/05/18 20:50 Alcohol, Quantitative < 10 mg/dl (0-10) 01/06/18 05:15 Attending/Attestation - Attestation I have personally seen and examined this patient.: Yes I have fully participated in the care of the patient.: Yes I have reviewed all pertinent clinical information, including history, physical exam and plan: Yes Notes (Text): 01/06/18 18:18 Seen, examined, and discussed with residents Drs. Prabhakar and Brady. Agree with findings and plan as above.
[2018-01-06 16:06] VITALS: BP 166/72; PULSE 92; RESP 18; TEMP 98.6
[2018-01-06] MEDS ORDERED: Insulin Detemir 100 Units/ml Inj SC SCH (22:00)
== END 2018-01-06 16:29 | DRG 535 ==
LOC: H.ER 19:37 → H.ERHOLD 21:41 → H.MEDSURG1 23:24
PROVIDERS: ADMIT Internal Medicine; ATTEND Internal Medicine
DX: S32.592A Other specified fracture of left pubis, initial encounter for closed fracture (principal); S32.442A Displaced fracture of posterior column [ilioischial] of left acetabulum, initial encounter for closed fracture; N39.0 Urinary tract infection, site not specified; M25.052 Hemarthrosis, left hip; F10.129 Alcohol abuse with intoxication, unspecified; Y90.6 Blood alcohol level of 120-199 mg/100 ml; E11.9 Type 2 diabetes mellitus without complications; I10 Essential (primary) hypertension; E78.5 Hyperlipidemia, unspecified; E78.00 Pure hypercholesterolemia, unspecified; W10.8XXA Fall (on) (from) other stairs and steps, initial encounter; F17.210 Nicotine dependence, cigarettes, uncomplicated; Z79.4 Long term (current) use of insulin; Z87.01 Personal history of pneumonia (recurrent); Z79.84 Long term (current) use of oral hypoglycemic drugs; Y92.89 Other specified places as the place of occurrence of the external cause

== ENCOUNTER 2018-01-06 15:38 | Inpatient (IN) | payer MEDICARE, BC ==
[2018-01-06 16:03] VITALS: BMI 25.7
[2018-01-06] MEDS: Morphine 15 mg Immediate Release Tab PO PRN (21:23)
[2018-01-06] MEDS: Insulin Detemir 100 Units/ml Inj SC SCH (22:13)
[2018-01-06] MEDS: Insulin Lispro (humaLOG) 100 Units/ml Inj SC SCH (22:14)
[2018-01-07] MEDS: Insulin Lispro (humaLOG) 100 Units/ml Inj SC SCH ×4 (06:53→21:10)
[2018-01-07] MEDS: Morphine 15 mg Immediate Release Tab PO PRN (08:15)
--- NOTE | 2018-01-07 12:04 | PCM.OPOC ---
Physiatry Overall Plan of Care - Overall Plan of Care Estimated Length of Stay in Weeks: 2 Rehab Impairment: Mobility, Gait, Balance Etiologic Diagnosis: Other Rehab/Medical Prognosis: Good - Anticipated Interventions Physical Therapy:: Yes Occupational Therapy:: Yes Speech Therapy:: No Recreational Therapy:: Yes - Therapy Goals Bed Mobility: Supervision Ambulation: Supervision Functional Positional Changes:: Supervision - Discharge Plan Identification of Barriers to Discharge: Home Situation Discharge Destination: Home
--- NOTE | 2018-01-07 12:09 | CP.PCM.CON ---
History of Present Illness - History of Present Illness History of Present Illness: Dr Duong PMR consultation on Nisreen Cerrato, born 1950, who has been admitted to [facility] for acute inpatient rehabilitation following an admission after a fall and a left acetabular fracture that did not require surgery. Will be TTWB as per Dr Mejia. Pain is controlled. She is having some nausea and constipation though and I will adjust both meds. 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 Review of Systems - Constitutional Constitutional: absent: Anorexia, Chills - EENT Eyes: Blurred Vision (has cataracts) Ears: absent: Decreased Hearing, Ear Discharge Nose/Mouth/Throat: absent: Nasal Congestion - Cardiovascular Cardiovascular: absent: Chest Pain - Respiratory Respiratory: absent: Dyspnea, Hemoptysis - Gastrointestinal Gastrointestinal: Constipation, Nausea, Vomiting (likely from pain meds). absent: Abdominal Pain - Integumentary Integumentary: absent: Bleeding Lesions - Neurological Neurological: absent: Abnormal Movements Past Patient History - Past Medical History & Family History Past Medical History?: Yes - Past Social History Smoking Status: Former Smoker - CARDIAC Hx Hypertension: Yes - PULMONARY Hx Respiratory Disorders: Yes Hx Pneumonia: Yes - NEUROLOGICAL Hx Neurological Disorder: No - HEENT Hx HEENT Problems: Yes Other/Comment: WEARS GLASSES - RENAL Hx Chronic Kidney Disease: No - ENDOCRINE/METABOLIC Hx Diabetes Mellitus Type 2: Yes - HEMATOLOGICAL/ONCOLOGICAL Hx Blood Disorders: No Hx AIDS: No Hx Human Immunodeficiency Virus (HIV): No - INTEGUMENTARY Hx Dermatological Problems: No - MUSCULOSKELETAL/RHEUMATOLOGICAL Hx Musculoskeletal Disorders: No Hx Falls: Yes - GASTROINTESTINAL Hx Gastrointestinal Disorders: No - GENITOURINARY/GYNECOLOGICAL Hx Genitourinary Disorders: No - PSYCHIATRIC Hx Psychophysiologic Disorder: No Hx Substance Use: No - SURGICAL HISTORY Hx Surgeries: Yes Hx Section: Yes - ANESTHESIA Hx Anesthesia: Yes Hx Anesthesia Reactions: No Hx Malignant Hyperthermia: No Meds Allergies/Adverse Reactions: Allergies Allergy/AdvReac Type Severity Reaction Status Date / Time squid Allergy RASH Verified 01/06/18 16:49 - Medications Medications: Current Medications Atorvastatin Calcium (Lipitor) 10 mg PO HS [facility] Last Admin: 01/06/18 22:09 Dose: 10 mg Ibuprofen (Motrin Tab) 400 mg PO Q6H PRN PRN Reason: Pain, Mild (1-3) Insulin Detemir (Levemir) 15 units SC [facility] Last Admin: 01/06/18 22:13 Dose: 15 units Insulin Human Lispro (Humalog) 0 units SC [facility] PRN Reason: Protocol Last Admin: 01/07/18 06:53 Dose: Not Given Losartan Potassium (Cozaar) 100 mg PO DAILY [facility] Last Admin: 01/07/18 08:16 Dose: 100 mg Morphine Sulfate (Morphine Immediate Release Tab) 15 mg PO Q6 PRN PRN Reason: Pain scale 4-10. Last Admin: 01/07/18 08:15 Dose: 15 mg Nicotine (Nicoderm Cq) 1 patch TD DAILY [facility] Last Admin: 01/07/18 08:16 Dose: 1 patch Ondansetron HCl (Zofran Tab) 4 mg PO Q6 PRN PRN Reason: Nausea/Vomiting Sitagliptin Phosphate (Januvia) 25 mg PO DAILY [facility] Last Admin: 01/07/18 08:16 Dose: 25 mg Physical Exam - Constitutional Appears: Non-toxic, No Acute Distress - Head Exam Head Exam: ATRAUMATIC, NORMAL INSPECTION, NORMOCEPHALIC - Eye Exam Eye Exam: EOMI - ENT Exam ENT Exam: Mucous Membranes Moist - Respiratory Exam Respiratory Exam: NORMAL BREATHING PATTERN - Cardiovascular Exam Cardiovascular Exam: REGULAR RHYTHM - GI/Abdominal Exam GI & Abdominal Exam: Distended. absent: Firm - Extremities Exam Extremities exam: Negative for: calf tenderness - Neurological Exam Neurological exam: Alert, CN II-XII Intact, Oriented x3 - Psychiatric Exam Psychiatric exam: Normal Affect, Normal Mood Results - Vital Signs Recent Vital Signs: Last Vital Signs Temp 98.1 F 01/07/18 09:16 Pulse 85 01/07/18 09:16 Resp 18 01/07/18 09:16 BP 128/51 L 01/07/18 09:16 Pulse Ox 95 01/07/18 09:16 - Labs Labs: Laboratory Results - last 24 hr 01/06/18 01/07/18 21:22 05:52 POC Glucose (mg/dL) 187 H 102 Assessment & Plan - Assessment and Plan (Free Text) Assessment: left acetabular fracture, non-op TTWB as per ortho PT/OT to continue to help increase functional independence Team conference for d/c planning Pain: adjust pain meds Vascular: no evidence of DVT GI: increase constipation meds Patient is an excellent acute rehabilitation candidate and will have focused pain management, PT, OT and recreational therapy to help facilitate a safe and appropriate d/c plan
[2018-01-07] MEDS ORDERED: oxyCODONE 5 mg Immediate Release Tab PO PRN (12:13)
[2018-01-07] MEDS ORDERED: Magnesium Hydroxide Susp 30 ml UD PO PRN (12:13)
[2018-01-07] MEDS ORDERED: oxyCODONE 10 mg Immediate Release Tab PO PRN (12:14)
--- NOTE | 2018-01-07 12:19 | CP.PCM.HP ---
History of Present Illness - History of Present Illness History of Present Illness: 67 yo female with history of HTN, HLD and DM2 came in on 01/05/18 complaining of pain on left hip after a fall. Patient came in intoxicated and admitted drinking with friends. CT scan of left hip revealed comminuted fracture of the posterior column of the acetabulum and the inferior ramus of the left pubis. No surgical intervention was needed as per orthopedist. However therapy was needed so patient was transferred to Acute rehab on 01/06/18. Present on Admission - Present on Admission Any Indicators Present on Admission: No History of DVT/PE: No History of Uncontrolled Diabetes: No Urinary Catheter: No Decubitus Ulcer Present: No Review of Systems - Review of Systems All systems: reviewed and no additional remarkable complaints except (aside from those mentioned above, 12 point system review were negative by me) Past Patient History - Past Medical History & Family History Past Medical History?: Yes - Past Social History Smoking Status: Heavy Smoker > 10 Cigarettes Daily Chewing Tobacco Use: No Cigar Use: No Alcohol: > 2 Drinks/Day Drugs: Denies Home Situation {Lives}: With Family - CARDIAC Hx Hypercholesterolemia: Yes Hx Hypertension: Yes - PULMONARY Hx Respiratory Disorders: Yes Hx Pneumonia: Yes - NEUROLOGICAL Hx Neurological Disorder: No - HEENT Hx HEENT Problems: Yes Other/Comment: WEARS GLASSES - RENAL Hx Chronic Kidney Disease: No - ENDOCRINE/METABOLIC Hx Diabetes Mellitus Type 2: Yes - HEMATOLOGICAL/ONCOLOGICAL Hx Blood Disorders: No Hx AIDS: No Hx Human Immunodeficiency Virus (HIV): No - INTEGUMENTARY Hx Dermatological Problems: No - MUSCULOSKELETAL/RHEUMATOLOGICAL Hx Musculoskeletal Disorders: No Hx Falls: Yes - GASTROINTESTINAL Hx Gastrointestinal Disorders: No - GENITOURINARY/GYNECOLOGICAL Hx Genitourinary Disorders: No - PSYCHIATRIC Hx Psychophysiologic Disorder: No Hx Substance Use: No - SURGICAL HISTORY Hx Surgeries: Yes Hx Section: Yes - ANESTHESIA Hx Anesthesia: Yes Hx Anesthesia Reactions: No Hx Malignant Hyperthermia: No Meds Allergies/Adverse Reactions: Allergies Allergy/AdvReac Type Severity Reaction Status Date / Time squid Allergy RASH Verified 01/06/18 16:49 Physical Exam - Constitutional Appears: No Acute Distress - Head Exam Head Exam: ATRAUMATIC - Eye Exam Eye Exam: absent: Scleral icterus - ENT Exam ENT Exam: Mucous Membranes Moist - Neck Exam Neck exam: Negative for: Meningismus - Respiratory Exam Respiratory Exam: absent: Rales, Rhonchi, Wheezes, Respiratory Distress - Cardiovascular Exam Cardiovascular Exam: REGULAR RHYTHM, +S1, +S2 - GI/Abdominal Exam GI & Abdominal Exam: Soft. absent: Tenderness - Rectal Exam Rectal Exam: Deferred - Extremities Exam Extremities exam: Negative for: full ROM (limited ROM on left hip) - Back Exam Back exam: NORMAL INSPECTION - Neurological Exam Neurological exam: Alert, Oriented x3 - Psychiatric Exam Psychiatric exam: Normal Affect - Skin Skin Exam: Dry, Intact Results - Vital Signs Recent Vital Signs: Last Vital Signs Temp 98.1 F 01/07/18 09:16 Pulse 85 01/07/18 09:16 Resp 18 01/07/18 09:16 BP 128/51 L 01/07/18 09:16 Pulse Ox 95 01/07/18 09:16 - Labs Labs: Laboratory Results - last 24 hr 01/06/18 01/07/18 21:22 05:52 POC Glucose (mg/dL) 187 H 102 Assessment & Plan - Assessment and Plan (Free Text) Assessment: 67 y/o female with fall in setting of EtOH intoxication resulting in L hip fracture. 1) Fall/L hip fx -NPO, IVF in prep for possible surgery -Boiardo consult in AM -EKG and CXR prior to surgery -Pain control per scale 2) DM2 -q6h accuchecks and SSI -Hold other medications while patient is NPO 3) HTN/HLD -- cont home medications 4) EtOH abuse -- watch for any signs of EtOH w/d 5) DVT PPx -- SCDs Status: Acute (2) DM2 (diabetes mellitus, type 2) Status: Acute (3) Hyperlipidemia Status: Chronic (4) Hypertension Status: Chronic (5) DVT prophylaxis Status: Acute
--- NOTE | 2018-01-07 12:26 | CP.PCM.CON ---
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 pt presents with pain restricted rom L hip and inability to ambulate pt admitted for conservative mgmt yesterday Past Patient History - Past Medical History & Family History Past Medical History?: Yes - Past Social History Smoking Status: Former Smoker - CARDIAC Hx Hypertension: Yes - PULMONARY Hx Respiratory Disorders: Yes Hx Pneumonia: Yes - NEUROLOGICAL Hx Neurological Disorder: No - HEENT Hx HEENT Problems: Yes Other/Comment: WEARS GLASSES - RENAL Hx Chronic Kidney Disease: No - ENDOCRINE/METABOLIC Hx Diabetes Mellitus Type 2: Yes - HEMATOLOGICAL/ONCOLOGICAL Hx Blood Disorders: No Hx AIDS: No Hx Human Immunodeficiency Virus (HIV): No - INTEGUMENTARY Hx Dermatological Problems: No - MUSCULOSKELETAL/RHEUMATOLOGICAL Hx Musculoskeletal Disorders: No Hx Falls: Yes - GASTROINTESTINAL Hx Gastrointestinal Disorders: No - GENITOURINARY/GYNECOLOGICAL Hx Genitourinary Disorders: No - PSYCHIATRIC Hx Psychophysiologic Disorder: No Hx Substance Use: No - SURGICAL HISTORY Hx Surgeries: Yes Hx Section: Yes - ANESTHESIA Hx Anesthesia: Yes Hx Anesthesia Reactions: No Hx Malignant Hyperthermia: No Meds Allergies/Adverse Reactions: Allergies Allergy/AdvReac Type Severity Reaction Status Date / Time squid Allergy RASH Verified 01/06/18 16:49 - Medications Medications: Current Medications Atorvastatin Calcium (Lipitor) 10 mg PO HS [facility] Last Admin: 01/06/18 22:09 Dose: 10 mg Docusate Sodium (Colace) 100 mg PO TID [facility] Insulin Detemir (Levemir) 15 units SC HS [facility] Last Admin: 01/06/18 22:13 Dose: 15 units Insulin Human Lispro (Humalog) 0 units SC ACHS [facility] PRN Reason: Protocol Last Admin: 01/07/18 12:08 Dose: 2 unit Losartan Potassium (Cozaar) 100 mg PO DAILY [facility] Last Admin: 01/07/18 08:16 Dose: 100 mg Magnesium Hydroxide (Milk Of Magnesia) 30 ml PO DAILY PRN PRN Reason: Constipation Nicotine (Nicoderm Cq) 1 patch TD DAILY [facility] Last Admin: 01/07/18 08:16 Dose: 1 patch Ondansetron HCl (Zofran Tab) 4 mg PO Q6 PRN PRN Reason: Nausea/Vomiting Oxycodone HCl (Oxycodone Immediate Release Tab) 5 mg PO Q6 PRN PRN Reason: pain 4-710 Oxycodone HCl (Oxycodone Immediate Release Tab) 10 mg PO Q6 PRN PRN Reason: 8-02/15 Sitagliptin Phosphate (Januvia) 25 mg PO DAILY [facility] Last Admin: 01/07/18 08:16 Dose: 25 mg Physical Exam - Additional Findings Additional findings: Musculoskektal exam stance/gait- defrred ROM L hip restricfted + tenderness to heel percussion N/V intact Results - Vital Signs Recent Vital Signs: Last Vital Signs Temp 98.1 F 01/07/18 09:16 Pulse 85 01/07/18 09:16 Resp 18 01/07/18 09:16 BP 128/51 L 01/07/18 09:16 Pulse Ox 95 01/07/18 09:16 - Labs Labs: Laboratory Results - last 24 hr 01/06/18 01/07/18 21:22 05:52 POC Glucose (mg/dL) 187 H 102 - Impressions Impression: Xrays- non displaced acetabular fx Assessment & Plan - Assessment and Plan (Free Text) Assessment: A- non displaced acetabular fx P- strict toe touch weight bearing L DVT prophylaxis as per Dr Duong
[2018-01-07] MEDS: Insulin Detemir 100 Units/ml Inj SC SCH (21:09)
[2018-01-08] MEDS: Insulin Lispro (humaLOG) 100 Units/ml Inj SC SCH ×2 (06:44→12:07)
[2018-01-08 07:24] LABS: BASO # 0.1 K/uL (0.0-0.2); EOS # 0.1 K/uL (0.0-0.7); EOS % 1.1 % (0.0-4.0); LYMPH # 1.6 K/uL (1.0-4.3); LYMPH % 30.6 % (20.0-40.0); MEAN CELL VOLUME 94.1 fl (81.0-99.0); MEAN CORPUSCULAR HEMOGLOBIN 31.9 pg (27.0-31.0); MEAN CORPUSCULAR HGB CONC 33.9 g/dL (33.0-37.0); MEAN PLATELET VOLUME 8.4 fl (7.2-11.7); MONO # 0.6 K/uL (0.0-0.8); MONO % 11.4 % (0.0-10.0); NEUT % 55.9 % (50.0-75.0); NRBC % 0.1 % (0.0-0.0); RBC 4.39 Mil/uL (3.80-5.20); WHITE BLOOD COUNT 5.3 K/uL (4.8-10.8)
[2018-01-08 07:32] LABS: ALB/GLOB RATIO 1.5 (1.0-2.1); ALBUMIN 3.6 g/dL (3.5-5.0); ALT/SGPT 20 U/L (9-52); AST/SGOT 23 U/L (14-36); BLOOD UREA NITROGEN 12 mg/dl (7-17); CALCIUM 9.1 mg/dL (8.4-10.2); GFR NON-AFRICAN AMERICAN > 60; HDL CHOLESTEROL 56 MG/DL (30-70)
[2018-01-08 07:38] LABS: LDL CHOLESTEROL 61 mg/dL (0-129)
[2018-01-08] MEDS: Enoxaparin 40 mg Syringe SC SCH (08:05)
[2018-01-08] MEDS: oxyCODONE 5 mg Immediate Release Tab PO PRN ×2 (11:11→17:46)
--- NOTE | 2018-01-08 21:38 | CP.PCM.PN ---
Subjective - Date & Time of Evaluation Date of Evaluation: 01/08/18 Time of Evaluation: 21:37 - Subjective Subjective: Patient seen in the room pain is controlled she had a BM no N/V or fever continue current care Objective - Vital Signs/Intake and Output Vital Signs (last 24 hours): Temp Pulse Resp BP Pulse Ox 97.3 F L 77 20 125/70 98 01/08/18 08:57 01/08/18 08:57 01/08/18 08:57 01/08/18 08:57 01/08/18 08:57 - Medications Medications: Current Medications Atorvastatin Calcium (Lipitor) 10 mg PO HS [facility] Last Admin: 01/07/18 21:09 Dose: 10 mg Docusate Sodium (Colace) 100 mg PO TID [facility] Last Admin: 01/08/18 16:54 Dose: 100 mg Enoxaparin Sodium (Lovenox) 40 mg SC DAILY [facility] PRN Reason: Protocol Last Admin: 01/08/18 08:05 Dose: 40 mg Losartan Potassium (Cozaar) 100 mg PO DAILY [facility] Last Admin: 01/08/18 08:06 Dose: 100 mg Magnesium Hydroxide (Milk Of Magnesia) 30 ml PO DAILY PRN PRN Reason: Constipation Metformin HCl (Glucophage) 1,000 mg PO BIDWM [facility] Last Admin: 01/08/18 16:53 Dose: 1,000 mg Nicotine (Nicoderm Cq) 1 patch TD DAILY [facility] Last Admin: 01/08/18 08:06 Dose: 1 patch Ondansetron HCl (Zofran Tab) 4 mg PO Q6 PRN PRN Reason: Nausea/Vomiting Oxycodone HCl (Oxycodone Immediate Release Tab) 10 mg PO Q6 PRN PRN Reason: 8-10/10 Oxycodone HCl (Oxycodone Immediate Release Tab) 5 mg PO Q6 PRN PRN Reason: pain 4-7/10 Last Admin: 01/08/18 17:46 Dose: 5 mg Pantoprazole Sodium (Protonix Ec Tab) 40 mg PO DAILY [facility] Sitagliptin Phosphate (Januvia) 100 mg PO DAILY [facility] Trimethoprim/Sulfamethoxazole (Bactrim Ds Tab) 1 tab PO Q12 [facility] PRN Reason: Protocol - Labs Labs: 01/08/18 06:30 01/08/18 06:30
[2018-01-08] MEDS: Tmp-Smz 800 mg-160 mg DS Tab PO SCH (21:56)
[2018-01-09] MEDS: oxyCODONE 5 mg Immediate Release Tab PO PRN ×3 (05:45→21:29)
[2018-01-09] MEDS: Enoxaparin 40 mg Syringe SC SCH (08:16)
[2018-01-09] MEDS: Pantoprazole 40 mg EC Tab PO SCH (08:17)
[2018-01-09] MEDS: Tmp-Smz 800 mg-160 mg DS Tab PO SCH ×2 (08:17→21:21)
--- NOTE | 2018-01-09 11:13 | CP.PCM.PN ---
Subjective - Date & Time of Evaluation Date of Evaluation: 01/09/18 Time of Evaluation: 10:50 - Subjective Subjective: S- pt with increased pain L hip after physion Objective - Vital Signs/Intake and Output Vital Signs (last 24 hours): Temp Pulse Resp BP Pulse Ox 97.9 F 90 18 131/75 94 L 01/09/18 08:16 01/09/18 08:17 01/09/18 08:16 01/09/18 08:17 01/09/18 08:16 - Medications Medications: Current Medications Atorvastatin Calcium (Lipitor) 10 mg PO HS [facility] Last Admin: 01/08/18 21:47 Dose: 10 mg Docusate Sodium (Colace) 100 mg PO TID [facility] Last Admin: 01/09/18 08:17 Dose: 100 mg Enoxaparin Sodium (Lovenox) 40 mg SC DAILY [facility] PRN Reason: Protocol Last Admin: 01/09/18 08:16 Dose: 40 mg Losartan Potassium (Cozaar) 100 mg PO DAILY [facility] Last Admin: 01/09/18 08:17 Dose: 100 mg Magnesium Hydroxide (Milk Of Magnesia) 30 ml PO DAILY PRN PRN Reason: Constipation Metformin HCl (Glucophage) 1,000 mg PO BIDWM [facility] Last Admin: 01/09/18 08:18 Dose: 1,000 mg Nicotine (Nicoderm Cq) 1 patch TD DAILY [facility] Last Admin: 01/09/18 08:16 Dose: 1 patch Ondansetron HCl (Zofran Tab) 4 mg PO Q6 PRN PRN Reason: Nausea/Vomiting Oxycodone HCl (Oxycodone Immediate Release Tab) 10 mg PO Q6 PRN PRN Reason: 8-10/10 Oxycodone HCl (Oxycodone Immediate Release Tab) 5 mg PO Q6 PRN PRN Reason: pain 4-7/10 Last Admin: 01/09/18 05:45 Dose: 5 mg Pantoprazole Sodium (Protonix Ec Tab) 40 mg PO DAILY [facility] Last Admin: 01/09/18 08:17 Dose: 40 mg Sitagliptin Phosphate (Januvia) 100 mg PO DAILY [facility] Last Admin: 01/09/18 08:18 Dose: 100 mg Trimethoprim/Sulfamethoxazole (Bactrim Ds Tab) 1 tab PO Q12 [facility] PRN Reason: Protocol Last Admin: 01/09/18 08:17 Dose: 1 tab - Labs Labs: 01/08/18 06:30 01/08/18 06:30 - Skin Additional comments: O systemic wn pt OOB to wheelchair Musculsokeletal stance/gait- defrred L hip with increaded pain after physio Assessment and Plan - Assessment and Plan (Free Text) Assessment: A s/pnondisplaced L acetabular fx P_ repeat xray continue strict blair touch weight bearing L
--- NOTE | 2018-01-09 11:54 | RAD ---
PROCEDURE: Left Hip X-ray Radiographs. HISTORY: r/o hip fracture COMPARISON: None. FINDINGS: BONES: Frontal view of the pelvis and hip and frogleg view of the left hip were performed for left hip pain and trauma. No fracture is seen. No hip dislocation is noted. No femoral head flattening is identified. Pubic rami and symphysis are unremarkable. No sacroiliac joint widening is seen. Mild diffuse osteopenia is not excluded. Left femoral shaft is intact. There appears to be rounded contour of the femoral heads which may be related to femoroacetabular impingement. Mild bilateral hip DJD is noted. JOINTS: See above SOFT TISSUES: Unremarkable. Vascular calcification is noted. OTHER FINDINGS: None. IMPRESSION: No appreciable plain film evidence of fracture. If symptoms persist MRI or CT scan is suggested. Please see above for other details.
[2018-01-09] MEDS ORDERED: Insulin Detemir 100 Units/ml Inj SC SCH (22:00)
--- NOTE | 2018-01-09 23:39 | CP.PCM.HP ---
History of Present Illness - History of Present Illness History of Present Illness: This is a 67 y/o female known to me who was admitted initially to medical floor for nondisplaced left acetabular fracture. She sustained the fracture after a fall at home. Has a hx of HTN and uncontrolled DM 2 and hyperlipidemia and on medications. Has a hx of smoking. Present on Admission - Present on Admission Any Indicators Present on Admission: No History of DVT/PE: No History of Uncontrolled Diabetes: Yes Urinary Catheter: No Decubitus Ulcer Present: No Review of Systems - Musculoskeletal Musculoskeletal: Arthralgias - Endocrine Endocrine: Polydipsia, Polyuria Past Patient History - Past Medical History & Family History Past Medical History?: Yes - Past Social History Smoking Status: Former Smoker - CARDIAC Hx Hypertension: Yes - PULMONARY Hx Respiratory Disorders: Yes Hx Pneumonia: Yes - NEUROLOGICAL Hx Neurological Disorder: No - HEENT Hx HEENT Problems: Yes Other/Comment: WEARS GLASSES - RENAL Hx Chronic Kidney Disease: No - ENDOCRINE/METABOLIC Hx Diabetes Mellitus Type 2: Yes - HEMATOLOGICAL/ONCOLOGICAL Hx Blood Disorders: No Hx AIDS: No Hx Human Immunodeficiency Virus (HIV): No - INTEGUMENTARY Hx Dermatological Problems: No - MUSCULOSKELETAL/RHEUMATOLOGICAL Hx Musculoskeletal Disorders: No Hx Falls: Yes - GASTROINTESTINAL Hx Gastrointestinal Disorders: No - GENITOURINARY/GYNECOLOGICAL Hx Genitourinary Disorders: No - PSYCHIATRIC Hx Psychophysiologic Disorder: No Hx Substance Use: No - SURGICAL HISTORY Hx Surgeries: Yes Hx Section: Yes - ANESTHESIA Hx Anesthesia: Yes Hx Anesthesia Reactions: No Hx Malignant Hyperthermia: No Meds Allergies/Adverse Reactions: Allergies Allergy/AdvReac Type Severity Reaction Status Date / Time squid Allergy RASH Verified 01/06/18 16:49 Physical Exam - Head Exam Head Exam: NORMAL INSPECTION - Eye Exam Eye Exam: Normal appearance - ENT Exam ENT Exam: Mucous Membranes Moist - Respiratory Exam Respiratory Exam: Clear to Auscultation Bilateral - Cardiovascular Exam Cardiovascular Exam: REGULAR RHYTHM - GI/Abdominal Exam GI & Abdominal Exam: Normal Bowel Sounds - Extremities Exam Additional comments: tenderness left hip Results - Vital Signs Recent Vital Signs: Last Vital Signs Temp 97.9 F 01/09/18 08:16 Pulse 90 01/09/18 14:49 Resp 18 01/09/18 08:16 BP 131/75 01/09/18 08:17 Pulse Ox 94 L 01/09/18 08:16 - Labs Result Diagrams: 01/08/18 06:30 01/08/18 06:30 Labs: Laboratory Results - last 24 hr 01/09/18 01/09/18 05:50 05:54 POC Glucose (mg/dL) 393 H 235 H Assessment & Plan (1) Closed left acetabular fracture Status: Acute (2) DM2 (diabetes mellitus, type 2) Status: Chronic (3) Hyperlipidemia Status: Chronic (4) Hypertension Status: Chronic - Assessment and Plan (Free Text) Plan: start pain meds start Phys therapy adjust meds for DM 2 checkk A1c lipid cmp
--- NOTE | 2018-01-09 23:40 | CP.PCM.PN ---
Subjective - Date & Time of Evaluation Date of Evaluation: 01/08/18 Time of Evaluation: 13:00 - Subjective Subjective: Patient was noted to have elevated FBS She was previously placed on Invokamet and levemir but her PMD discontinued the meds. Has no chestpain or SOB Has minimal pain on the fracture area. Objective - Vital Signs/Intake and Output Vital Signs (last 24 hours): Temp Pulse Resp BP Pulse Ox 97.9 F 90 18 131/75 94 L 01/09/18 08:16 01/09/18 14:49 01/09/18 08:16 01/09/18 08:17 01/09/18 08:16 - Medications Medications: Current Medications Atorvastatin Calcium (Lipitor) 10 mg PO HS [facility] Last Admin: 01/09/18 21:21 Dose: 10 mg Docusate Sodium (Colace) 100 mg PO TID [facility] Last Admin: 01/09/18 17:18 Dose: 100 mg Enoxaparin Sodium (Lovenox) 40 mg SC DAILY [facility] PRN Reason: Protocol Last Admin: 01/09/18 08:16 Dose: 40 mg Insulin Detemir (Levemir) 10 units SC [facility] Last Admin: 01/09/18 21:23 Dose: 10 units Losartan Potassium (Cozaar) 100 mg PO DAILY [facility] Last Admin: 01/09/18 08:17 Dose: 100 mg Magnesium Hydroxide (Milk Of Magnesia) 30 ml PO DAILY [facility] PRN Reason: Constipation Metformin HCl (Glucophage) 1,000 mg PO BIDWM [facility] Last Admin: 01/09/18 17:18 Dose: 1,000 mg Nicotine (Nicoderm Cq) 1 patch TD DAILY [facility] Last Admin: 01/09/18 08:16 Dose: 1 patch Ondansetron HCl (Zofran Tab) 4 mg PO Q6 PRN PRN Reason: Nausea/Vomiting Oxycodone HCl (Oxycodone Immediate Release Tab) 5 mg PO Q6 PRN PRN Reason: pain 4-710 Last Admin: 01/09/18 21:29 Dose: 5 mg Oxycodone HCl (Oxycodone Immediate Release Tab) 10 mg PO Q6 PRN PRN Reason: 8-10/10 Last Admin: 01/09/18 11:59 Dose: 10 mg Pantoprazole Sodium (Protonix Ec Tab) 40 mg PO DAILY [facility] Last Admin: 01/09/18 08:17 Dose: 40 mg Sitagliptin Phosphate (Januvia) 100 mg PO DAILY [facility] Last Admin: 01/09/18 08:18 Dose: 100 mg Trimethoprim/Sulfamethoxazole (Bactrim Ds Tab) 1 tab PO Q12 [facility] PRN Reason: Protocol Last Admin: 01/09/18 21:21 Dose: 1 tab - Labs Labs: 01/08/18 06:30 01/08/18 06:30 - Head Exam Head Exam: NORMAL INSPECTION - Eye Exam Eye Exam: Normal appearance - ENT Exam ENT Exam: Mucous Membranes Moist - Respiratory Exam Respiratory Exam: Clear to Ausculation Bilateral - Cardiovascular Exam Cardiovascular Exam: REGULAR RHYTHM - GI/Abdominal Exam GI & Abdominal Exam: Normal Bowel Sounds - Neurological Exam Neurological Exam: Awake, Oriented x3 Assessment and Plan (1) Closed left acetabular fracture Status: Acute (2) Hyperlipidemia Status: Chronic (3) Hypertension Status: Chronic (4) Uncontrolled diabetes mellitus Status: Chronic - Assessment and Plan (Free Text) Plan: Cont meds Cont tx pain meds adjust meds.
--- NOTE | 2018-01-09 23:41 | CP.PCM.PN ---
Subjective - Date & Time of Evaluation Date of Evaluation: 01/09/18 Time of Evaluation: 14:00 - Subjective Subjective: Patient continues to do well. Still with elevated FBS. Objective - Vital Signs/Intake and Output Vital Signs (last 24 hours): Temp Pulse Resp BP Pulse Ox 97.9 F 90 18 131/75 94 L 01/09/18 08:16 01/09/18 14:49 01/09/18 08:16 01/09/18 08:17 01/09/18 08:16 - Medications Medications: Current Medications Atorvastatin Calcium (Lipitor) 10 mg PO HS [facility] Last Admin: 01/09/18 21:21 Dose: 10 mg Docusate Sodium (Colace) 100 mg PO TID [facility] Last Admin: 01/09/18 17:18 Dose: 100 mg Enoxaparin Sodium (Lovenox) 40 mg SC DAILY [facility] PRN Reason: Protocol Last Admin: 01/09/18 08:16 Dose: 40 mg Insulin Detemir (Levemir) 10 units SC [facility] Last Admin: 01/09/18 21:23 Dose: 10 units Losartan Potassium (Cozaar) 100 mg PO DAILY [facility] Last Admin: 01/09/18 08:17 Dose: 100 mg Magnesium Hydroxide (Milk Of Magnesia) 30 ml PO DAILY [facility] PRN Reason: Constipation Metformin HCl (Glucophage) 1,000 mg PO BIDWM [facility] Last Admin: 01/09/18 17:18 Dose: 1,000 mg Nicotine (Nicoderm Cq) 1 patch TD DAILY [facility] Last Admin: 01/09/18 08:16 Dose: 1 patch Ondansetron HCl (Zofran Tab) 4 mg PO Q6 PRN PRN Reason: Nausea/Vomiting Oxycodone HCl (Oxycodone Immediate Release Tab) 5 mg PO Q6 PRN PRN Reason: pain 4-7/10 Last Admin: 01/09/18 21:29 Dose: 5 mg Oxycodone HCl (Oxycodone Immediate Release Tab) 10 mg PO Q6 PRN PRN Reason: 8-10/10 Last Admin: 01/09/18 11:59 Dose: 10 mg Pantoprazole Sodium (Protonix Ec Tab) 40 mg PO DAILY [facility] Last Admin: 01/09/18 08:17 Dose: 40 mg Sitagliptin Phosphate (Januvia) 100 mg PO DAILY [facility] Last Admin: 01/09/18 08:18 Dose: 100 mg Trimethoprim/Sulfamethoxazole (Bactrim Ds Tab) 1 tab PO Q12 [facility] PRN Reason: Protocol Last Admin: 01/09/18 21:21 Dose: 1 tab - Labs Labs: 01/08/18 06:30 01/08/18 06:30 - Head Exam Head Exam: NORMAL INSPECTION - Eye Exam Eye Exam: Normal appearance - ENT Exam ENT Exam: Mucous Membranes Moist - Respiratory Exam Respiratory Exam: Clear to Ausculation Bilateral - GI/Abdominal Exam GI & Abdominal Exam: Normal Bowel Sounds - Neurological Exam Neurological Exam: Awake, Oriented x3 Assessment and Plan (1) Closed left acetabular fracture Status: Acute (2) Hyperlipidemia Status: Chronic (3) Hypertension Status: Chronic (4) Uncontrolled diabetes mellitus Status: Chronic - Assessment and Plan (Free Text) Plan: Cont meds cont PT januvia metformin and add levemir cont other meds.
[2018-01-10] MEDS: Tmp-Smz 800 mg-160 mg DS Tab PO SCH ×2 (08:02→21:06)
[2018-01-10] MEDS: Enoxaparin 40 mg Syringe SC SCH (08:03)
[2018-01-10] MEDS: Pantoprazole 40 mg EC Tab PO SCH (08:03)
--- NOTE | 2018-01-10 08:15 | CP.PCM.PN ---
Subjective - Date & Time of Evaluation Date of Evaluation: 01/10/18 Time of Evaluation: 07:30 - Subjective Subjective: Patient seen and examined at bedside comfortable. Pain well controlled, improved since yesterday. Tolerating PT well. No other complaints. Denies CP/SOB /N/V/D/dizziness/fever. Objective - Vital Signs/Intake and Output Vital Signs (last 24 hours): Temp Pulse Resp BP Pulse Ox 99.1 F 78 20 125/65 97 01/09/18 21:00 01/10/18 08:02 01/09/18 21:00 01/10/18 08:02 01/09/18 21:00 - Medications Medications: Current Medications Atorvastatin Calcium (Lipitor) 10 mg PO HS [facility] Last Admin: 01/09/18 21:21 Dose: 10 mg Docusate Sodium (Colace) 100 mg PO TID [facility] Last Admin: 01/10/18 08:02 Dose: 100 mg Enoxaparin Sodium (Lovenox) 40 mg SC DAILY [facility] PRN Reason: Protocol Last Admin: 01/10/18 08:03 Dose: 40 mg Insulin Detemir (Levemir) 10 units SC [facility] Last Admin: 01/09/18 21:23 Dose: 10 units Losartan Potassium (Cozaar) 100 mg PO DAILY [facility] Last Admin: 01/10/18 08:02 Dose: 100 mg Magnesium Hydroxide (Milk Of Magnesia) 30 ml PO DAILY [facility] PRN Reason: Constipation Metformin HCl (Glucophage) 1,000 mg PO BIDWM [facility] Last Admin: 01/10/18 08:03 Dose: 1,000 mg Nicotine (Nicoderm Cq) 1 patch TD DAILY [facility] Last Admin: 01/10/18 08:03 Dose: 1 patch Ondansetron HCl (Zofran Tab) 4 mg PO Q6 PRN PRN Reason: Nausea/Vomiting Oxycodone HCl (Oxycodone Immediate Release Tab) 5 mg PO Q6 PRN PRN Reason: pain 4-710 Last Admin: 01/09/18 21:29 Dose: 5 mg Oxycodone HCl (Oxycodone Immediate Release Tab) 10 mg PO Q6 PRN PRN Reason: 8-10/10 Last Admin: 01/09/18 11:59 Dose: 10 mg Pantoprazole Sodium (Protonix Ec Tab) 40 mg PO DAILY [facility] Last Admin: 01/10/18 08:03 Dose: 40 mg Sitagliptin Phosphate (Januvia) 100 mg PO DAILY [facility] Last Admin: 01/10/18 08:03 Dose: 100 mg Trimethoprim/Sulfamethoxazole (Bactrim Ds Tab) 1 tab PO Q12 [facility] PRN Reason: Protocol Last Admin: 01/10/18 08:02 Dose: 1 tab - Labs Labs: 01/08/18 06:30 01/08/18 06:30 - Extremities Exam Additional comments: L hip: no swelling, no ecchymosis, no lesions mild tenderness lateral hip and groin sensation intact SP/DP/TN motor intact EHL/FHL/TA/G pedal pulses intact comps soft NT Assessment and Plan (1) Closed fracture of left inferior pubic ramus Status: Acute (2) Closed left acetabular fracture Assessment & Plan: -PT/OT TTWB LLE -DVT ppx -orthopedically stable -above d/w Dr. Mejia in agreement Status: Acute Radiology Interpretation - Notes: Notes:: Accession No. : [id number] Patient Name / ID : PERRI TARIQ / [id number] Exam Date : 01/09/2018 11:16:29 ( Approved ) Study Comment : Sex / Age : F / 67Y Creator : Airam Guerrero MD Dictator : Airam Guerrero MD Shredding Machine Knife Changer : Furniture Repair Technician : Airam Guerrero MD Approver2 : Report Date : 01/09/2018 11:47:38 My Comment : PROCEDURE: Left Hip X-ray Radiographs. HISTORY: r/o hip fracture COMPARISON: None. FINDINGS: BONES: Frontal view of the pelvis and hip and frogleg view of the left hip were performed for left hip pain and trauma. No fracture is seen. No hip dislocation is noted. No femoral head flattening is identified. Pubic rami and symphysis are unremarkable. No sacroiliac joint widening is seen. Mild diffuse osteopenia is not excluded. Left femoral shaft is intact. There appears to be rounded contour of the femoral heads which may be related to femoroacetabular impingement. Mild bilateral hip DJD is noted. JOINTS: See above SOFT TISSUES: Unremarkable. Vascular calcification is noted. OTHER FINDINGS: None. IMPRESSION: No appreciable plain film evidence of fracture. If symptoms persist MRI or CT scan is suggested. Please see above for other details.
--- NOTE | 2018-01-10 09:29 | PSY.TMCNF ---
Nursing - Vital Signs Vital Signs (Last 8 hours): Vital Signs 01/10/18 08:02 Pulse Rate 78 Blood Pressure 125/65 Pain: 0 - Medications/Other Issues Comment: To follow as per nutrition protocol - Bladder Management Bladder Pattern: Normal, Incontinent Voiding Method: Bedpan - Bowel Management Bowel Pattern: Normal Physical Therapy - Bed Mobility Bed Mobility: Verbal Cues, Moderate Assistance, Maximum Assistance - Transfers Wheelchair to Mat: Verbal Cues, Moderate Assistance Sit to Stand: Verbal Cues, Minimal Assistance, Moderate Assistance - Ambulation Distance (ft.): 10 Comment: Pt performed 3 trials of ambulation in // bars a distance of 10 ft each w/ B/L UE support and close supervision. Pt educated on TTWB status. Pt demonstrated good carry over during forward ambulation but required cues and education for adherence during 180 degree turns within // bars. Pt reported increased pain levels through L hip region during and immediately following ambulation trials of 10/10 pain which required a seated rest break of 4-5 minutes to decrease enough for pt to ambulate again. - Stair Negotiation Stairs: Level of Assistance: Not Tested Comment: to be assessed - Standing Balance Static Stand: Moderate Assistance Dynamic Stand: Supervision - Pain Management Techniques: Medication, Position Change, Relaxation Techniques - Insight/Carryover Insight/Carryover: Good - Patient/Family Education Comment: WBing status, role of OT, goals of therapy - Assessment/Plan Assessment: Patient is a 67 female s/p L acetabulum/pubic ramus fracture. pt is TTWBIng LLE and demonstrates decreased standing balance/tolerance, endurance, and UE strength, and pain, limiting increased independence with ADLs and functional activities. patient mona requires mod-max A for all functional transfer and is dependent for toielting and LB ADLs. patient Patient will benefit from skilled OT services 5-6x/week to address above deficits to increase independence. [ End ] - Goals Timeframe: 3 weeks Goals: mod I transfers (commode, chair, eob). mod I bathing. mod I UB/LB dressing. mod I toileting tasks. mod I light home managment tasks - Provider Therapist: Katy Delgado PT, DPT License Number: [id number] Occupational Therapy - Arousal/Attention/Orientation Patient Orientation: Person, Place, Time, Appropriate to Age, Appropriate to Situation - ADL/IADL Self Feeding: Set-up Help Grooming: Set-up Help Dressing-Upper Extremity: Supervision, Set-up Help Dressing-Lower Extremity: Dependent Homemaking: Dependent - Sitting Balance Static Sitting: Supervision Dynamic Sitting: Requires supervision - Transfers Wheelchair to Bed Transfers: Moderate Assistance Toilet Transfers: Dependent Comment: tub/shower transfer TBA - Wheelchair Management Level of Assistance: Supervision, Verbal Cues Distance (ft.): 150 - Upper Extremity Status Right Upper Extremity Comment: WFLS Left Upper Extremity Comment: WFLs - Pain Alleviating Techniques: Medication, Position Change, Relaxation Techniques - Insight/Carryover Insight/Carryover: Good - Patient/Family Education Comment: WBing status, role of OT, goals of therapy - Assessment/Plan Assessment: Patient is a 67 female s/p L acetabulum/pubic ramus fracture. pt is TTWBIng LLE and demonstrates decreased standing balance/tolerance, endurance, and UE strength, and pain, limiting increased independence with ADLs and functional activities. patient mona requires mod-max A for all functional transfer and is dependent for toielting and LB ADLs. patient Patient will benefit from skilled OT services 5-6x/week to address above deficits to increase independence. [ End ] - Goals Timeframe: 3 weeks Goals: mod I transfers (commode, chair, eob). mod I bathing. mod I UB/LB dressing. mod I toileting tasks. mod I light home managment tasks - Provider Therapist: MARISOL Rajan/Zoraida License Number: [id number] Speech Therapy - Plan Assessment: Patient is a 67 female s/p L acetabulum/pubic ramus fracture. pt is TTWBIng LLE and demonstrates decreased standing balance/tolerance, endurance, and UE strength, and pain, limiting increased independence with ADLs and functional activities. patient mona requires mod-max A for all functional transfer and is dependent for toielting and LB ADLs. patient Patient will benefit from skilled OT services 5-6x/week to address above deficits to increase independence. [ End ] Recreational Therapy - Assessment Assessment/Plan: Patient is a 67 female s/p L acetabulum/pubic ramus fracture. pt is TTWBIng LLE and demonstrates decreased standing balance/tolerance, endurance, and UE strength, and pain, limiting increased independence with ADLs and functional activities. patient mona requires mod-max A for all functional transfer and is dependent for toielting and LB ADLs. patient Patient will benefit from skilled OT services 5-6x/week to address above deficits to increase independence. [ End ] Nutrition - Current Diet Current Diet/ Supplement/ Feedings: Moderate consistent CHO heart healthy diet - Appetite Percent Meal Consumed: 50-74% - Assessment/Goals/Time Frame Assessment/Goals/Time Frame: To follow as per nutrition protocol - Provider Provider: Marbella Lord RD Case Management - Discharge Plan Discharge Plan: Home with significant other/family Rehabilitation Plan - Treatment Plan Treatment Plan: Physical Therapy, Occupational Therapy, Dietary, Patient/Family Education - Discharge Plan Discharge to: Home
--- NOTE | 2018-01-10 09:43 | CP.PCM.PN ---
Subjective - Date & Time of Evaluation Date of Evaluation: 01/10/18 Time of Evaluation: 09:43 - Subjective Subjective: Patient seen in the room pain is controlled discussed need to do more in therapies she has a flight of steps that needs to be negotiated will work on bumping no change in pain medications necessary Objective - Vital Signs/Intake and Output Vital Signs (last 24 hours): Temp Pulse Resp BP Pulse Ox 98.1 F 78 20 125/65 98 01/10/18 08:48 01/10/18 09:19 01/10/18 08:48 01/10/18 09:19 01/10/18 08:48 - Medications Medications: Current Medications Atorvastatin Calcium (Lipitor) 10 mg PO [facility] Last Admin: 01/09/18 21:21 Dose: 10 mg Docusate Sodium (Colace) 100 mg PO TID [facility] Last Admin: 01/10/18 08:02 Dose: 100 mg Enoxaparin Sodium (Lovenox) 40 mg SC DAILY [facility] PRN Reason: Protocol Last Admin: 01/10/18 08:03 Dose: 40 mg Insulin Detemir (Levemir) 10 units SC [facility] Last Admin: 01/09/18 21:23 Dose: 10 units Losartan Potassium (Cozaar) 100 mg PO DAILY [facility] Last Admin: 01/10/18 08:02 Dose: 100 mg Magnesium Hydroxide (Milk Of Magnesia) 30 ml PO DAILY PRN PRN Reason: Constipation Metformin HCl (Glucophage) 1,000 mg PO BIDWM [facility] Last Admin: 01/10/18 08:03 Dose: 1,000 mg Nicotine (Nicoderm Cq) 1 patch TD DAILY [facility] Last Admin: 01/10/18 08:03 Dose: 1 patch Ondansetron HCl (Zofran Tab) 4 mg PO Q6 PRN PRN Reason: Nausea/Vomiting Oxycodone HCl (Oxycodone Immediate Release Tab) 5 mg PO Q6 PRN PRN Reason: pain 4-710 Last Admin: 01/09/18 21:29 Dose: 5 mg Oxycodone HCl (Oxycodone Immediate Release Tab) 10 mg PO Q6 PRN PRN Reason: 8-10 Last Admin: 01/09/18 11:59 Dose: 10 mg Pantoprazole Sodium (Protonix Ec Tab) 40 mg PO DAILY [facility] Last Admin: 01/10/18 08:03 Dose: 40 mg Sitagliptin Phosphate (Januvia) 100 mg PO DAILY [facility] Last Admin: 01/10/18 08:03 Dose: 100 mg Trimethoprim/Sulfamethoxazole (Bactrim Ds Tab) 1 tab PO Q12 [facility] PRN Reason: Protocol Last Admin: 01/10/18 08:02 Dose: 1 tab - Labs Labs: 01/08/18 06:30 01/08/18 06:30
[2018-01-10] MEDS: oxyCODONE 5 mg Immediate Release Tab PO PRN ×2 (10:08→14:16)
[2018-01-10] MEDS: Insulin Detemir 100 Units/ml Inj SC SCH (21:07)
[2018-01-11 06:20] LABS: HEMOGLOBIN 13.1 g/dL (12.0-16.0); MEAN CELL VOLUME 93.3 fl (81.0-99.0); MEAN CORPUSCULAR HEMOGLOBIN 31.6 pg (27.0-31.0); MEAN CORPUSCULAR HGB CONC 33.9 g/dL (33.0-37.0); RBC 4.15 Mil/uL (3.80-5.20); RED CELL DISTRIBUTION WIDTH 13.6 % (11.5-14.5); WHITE BLOOD COUNT 5.4 K/uL (4.8-10.8)
--- NOTE | 2018-01-11 06:39 | CP.PCM.PN ---
Subjective - Date & Time of Evaluation Date of Evaluation: 01/10/18 Time of Evaluation: 11:00 - Subjective Subjective: Patient is doing well with PT Has minimal pain Has no fever Has no dysuria A1c is 10.4 Objective - Vital Signs/Intake and Output Vital Signs (last 24 hours): Temp Pulse Resp BP Pulse Ox 98.1 F 85 20 121/60 96 01/10/18 20:00 01/10/18 20:00 01/10/18 20:00 01/10/18 20:00 01/10/18 20:00 - Medications Medications: Current Medications Atorvastatin Calcium (Lipitor) 10 mg PO HS [facility] Last Admin: 01/10/18 21:06 Dose: 10 mg Docusate Sodium (Colace) 100 mg PO TID [facility] Last Admin: 01/10/18 17:43 Dose: Not Given Enoxaparin Sodium (Lovenox) 40 mg SC DAILY [facility] PRN Reason: Protocol Last Admin: 01/10/18 08:03 Dose: 40 mg Insulin Detemir (Levemir) 15 units SC [facility] Last Admin: 01/10/18 21:07 Dose: 15 units Losartan Potassium (Cozaar) 100 mg PO DAILY [facility] Last Admin: 01/10/18 08:02 Dose: 100 mg Magnesium Hydroxide (Milk Of Magnesia) 30 ml PO DAILY PR[facility] PRN Reason: Constipation Metformin HCl (Glucophage) 1,000 mg PO BIDWM [facility] Last Admin: 01/10/18 17:44 Dose: 1,000 mg Nicotine (Nicoderm Cq) 1 patch TD DAILY [facility] Last Admin: 01/10/18 08:03 Dose: 1 patch Ondansetron HCl (Zofran Tab) 4 mg PO Q6 PRN PRN Reason: Nausea/Vomiting Last Admin: 01/10/18 16:59 Dose: 4 mg Oxycodone HCl (Oxycodone Immediate Release Tab) 5 mg PO Q6 PRN PRN Reason: pain 4-7/10 Last Admin: 01/10/18 10:08 Dose: 5 mg Oxycodone HCl (Oxycodone Immediate Release Tab) 10 mg PO Q6 PRN PRN Reason: 8-10/10 Last Admin: 01/10/18 14:16 Dose: 10 mg Pantoprazole Sodium (Protonix Ec Tab) 40 mg PO DAILY [facility] Last Admin: 01/10/18 08:03 Dose: 40 mg Sitagliptin Phosphate (Januvia) 100 mg PO DAILY [facility] Last Admin: 01/10/18 08:03 Dose: 100 mg Trimethoprim/Sulfamethoxazole (Bactrim Ds Tab) 1 tab PO Q12 [facility] PRN Reason: Protocol Last Admin: 01/10/18 21:06 Dose: 1 tab - Labs Labs: 01/08/18 06:30 01/08/18 06:30 - Head Exam Head Exam: NORMAL INSPECTION - Eye Exam Eye Exam: Normal appearance - ENT Exam ENT Exam: Mucous Membranes Moist - Respiratory Exam Respiratory Exam: Clear to Ausculation Bilateral - Cardiovascular Exam Cardiovascular Exam: REGULAR RHYTHM - GI/Abdominal Exam GI & Abdominal Exam: Normal Bowel Sounds - Neurological Exam Neurological Exam: Awake, Oriented x3 - Psychiatric Exam Psychiatric exam: Normal Mood Assessment and Plan (1) Closed left acetabular fracture Status: Acute (2) Hyperlipidemia Status: Chronic (3) Hypertension Status: Chronic (4) Uncontrolled diabetes mellitus Status: Chronic - Assessment and Plan (Free Text) Plan: Cont all meds januvia 100 metformin 1000 bid advised patient to go back to [facility].
[2018-01-11 07:44] LABS: BLOOD UREA NITROGEN 17 mg/dl (7-17); CALCIUM 9.8 mg/dL (8.4-10.2); GFR NON-AFRICAN AMERICAN > 60
[2018-01-11] MEDS: oxyCODONE 5 mg Immediate Release Tab PO PRN ×3 (08:39→23:39)
[2018-01-11] MEDS: Tmp-Smz 800 mg-160 mg DS Tab PO SCH ×2 (08:40→20:54)
[2018-01-11] MEDS: Enoxaparin 40 mg Syringe SC SCH (08:41)
[2018-01-11] MEDS: Pantoprazole 40 mg EC Tab PO SCH (08:42)
--- NOTE | 2018-01-11 12:17 | CP.PCM.PN ---
Subjective - Date & Time of Evaluation Date of Evaluation: 01/11/18 Time of Evaluation: 10:30 - Subjective Subjective: Patient seen OOB working with PT. Tolerating ambulation TTWB with walker down hallway. Pain well controlled and improved compared to yesterday. No new complaints. Objective - Vital Signs/Intake and Output Vital Signs (last 24 hours): Temp Pulse Resp BP Pulse Ox 98.2 F 86 18 101/42 L 96 01/11/18 09:06 01/11/18 09:06 01/11/18 09:06 01/11/18 09:06 01/11/18 09:06 - Medications Medications: Current Medications Atorvastatin Calcium (Lipitor) 10 mg PO HS [facility] Last Admin: 01/10/18 21:06 Dose: 10 mg Docusate Sodium (Colace) 100 mg PO TID [facility] Last Admin: 01/11/18 08:40 Dose: Not Given Enoxaparin Sodium (Lovenox) 40 mg SC DAILY [facility] PRN Reason: Protocol Last Admin: 01/11/18 08:41 Dose: 40 mg Hydrocortisone (Cortizone 0.5% Cream) 1 applic TOP DAILY [facility] Insulin Detemir (Levemir) [address] [facility] Last Admin: 01/10/18 21:07 Dose: 15 units Losartan Potassium (Cozaar) 100 mg PO DAILY [facility] Last Admin: 01/10/18 08:02 Dose: 100 mg Magnesium Hydroxide (Milk Of Magnesia) 30 ml PO DAILY PRN PRN Reason: Constipation Metformin HCl (Glucophage) 1,000 mg PO BIDWM [facility] Last Admin: 01/11/18 08:41 Dose: 1,000 mg Nicotine (Nicoderm Cq) 1 patch TD DAILY [facility] Last Admin: 01/10/18 08:03 Dose: 1 patch Ondansetron HCl (Zofran Tab) 4 mg PO Q6 PRN PRN Reason: Nausea/Vomiting Last Admin: 01/10/18 16:59 Dose: 4 mg Oxycodone HCl (Oxycodone Immediate Release Tab) 5 mg PO Q6 PRN PRN Reason: pain 4-710 Last Admin: 01/10/18 10:08 Dose: 5 mg Oxycodone HCl (Oxycodone Immediate Release Tab) 10 mg PO Q6 PRN PRN Reason: 8-02/15 Last Admin: 01/11/18 08:39 Dose: 10 mg Pantoprazole Sodium (Protonix Ec Tab) 40 mg PO DAILY [facility] Last Admin: 01/11/18 08:42 Dose: 40 mg Sitagliptin Phosphate (Januvia) 100 mg PO DAILY [facility] Last Admin: 01/11/18 08:41 Dose: 100 mg Trimethoprim/Sulfamethoxazole (Bactrim Ds Tab) 1 tab PO Q12 [facility] PRN Reason: Protocol Last Admin: 01/11/18 08:40 Dose: 1 tab - Labs Labs: 01/11/18 05:20 01/11/18 05:20 - Extremities Exam Additional comments: L hip: no swelling, no ecchymosis, no lesions mild tenderness lateral hip and groin sensation intact SP/DP/TN motor intact EHL/FHL/TA/G pedal pulses intact comps soft NT Assessment and Plan (1) Closed fracture of left inferior pubic ramus Status: Acute (2) Closed left acetabular fracture Assessment & Plan: -continue conservative management -pain controle -PT/OT TTWB LLE -DVT ppx -orthopedically stable -above d/w Dr. Mejia in agreement Status: Acute
[2018-01-11] MEDS: Insulin Detemir 100 Units/ml Inj SC SCH (21:00)
[2018-01-12] MEDS: Enoxaparin 40 mg Syringe SC SCH (08:06)
[2018-01-12] MEDS: Tmp-Smz 800 mg-160 mg DS Tab PO SCH ×2 (08:07→21:15)
[2018-01-12] MEDS: Pantoprazole 40 mg EC Tab PO SCH (08:07)
[2018-01-12] MEDS: Hydrocortisone 0.5% OINT TOP SCH (08:09)
--- NOTE | 2018-01-12 11:42 | CP.PCM.PN ---
Subjective - Date & Time of Evaluation Date of Evaluation: 01/12/18 Time of Evaluation: 10:00 - Subjective Subjective: Patient seen and examined OOB to chair comfortable. Pain is well controlled. Tolerating PT well. No new complaints. Objective - Vital Signs/Intake and Output Vital Signs (last 24 hours): Temp Pulse Resp BP Pulse Ox 98 F 87 19 89/55 L 97 01/12/18 07:54 01/12/18 11:37 01/12/18 07:54 01/12/18 11:37 01/12/18 07:54 - Medications Medications: Current Medications Atorvastatin Calcium (Lipitor) 10 mg PO HS [facility] Last Admin: 01/11/18 21:00 Dose: 10 mg Docusate Sodium (Colace) 100 mg PO TID [facility] Last Admin: 01/12/18 08:07 Dose: 100 mg Enoxaparin Sodium (Lovenox) 40 mg SC DAILY [facility] PRN Reason: Protocol Last Admin: 01/12/18 08:06 Dose: 40 mg Hydrocortisone (Hydrocortisone 0.5%) 1 applic TOP DAILY [facility] Last Admin: 01/12/18 08:09 Dose: 1 applic Insulin Detemir (Levemir) 18 units SC HS [facility] Lidocaine (Lidoderm) 1 ea TD DAILY [facility] Lidocaine (Lidoderm) 1 ea TD DAILY [facility] Losartan Potassium (Cozaar) 100 mg PO DAILY [facility] Last Admin: 01/12/18 11:37 Dose: Not Given Magnesium Hydroxide (Milk Of Magnesia) 30 ml PO DAILY PRN PRN Reason: Constipation Metformin HCl (Glucophage) 1,000 mg PO BIDWM [facility] Last Admin: 01/12/18 08:07 Dose: 1,000 mg Nicotine (Nicoderm Cq) 1 patch TD DAILY [facility] Last Admin: 01/12/18 08:08 Dose: 1 patch Ondansetron HCl (Zofran Tab) 4 mg PO Q6 PRN PRN Reason: Nausea/Vomiting Last Admin: 01/10/18 16:59 Dose: 4 mg Oxycodone HCl (Oxycodone Immediate Release Tab) 5 mg PO Q6 PRN PRN Reason: pain 4-710 Last Admin: 01/11/18 23:39 Dose: 5 mg Oxycodone HCl (Oxycodone Immediate Release Tab) 10 mg PO Q6 PRN PRN Reason: 8-10/10 Last Admin: 01/11/18 14:45 Dose: 10 mg Pantoprazole Sodium (Protonix Ec Tab) 40 mg PO DAILY [facility] Last Admin: 01/12/18 08:07 Dose: 40 mg Sitagliptin Phosphate (Januvia) 100 mg PO DAILY [facility] Last Admin: 01/12/18 08:08 Dose: 100 mg Trimethoprim/Sulfamethoxazole (Bactrim Ds Tab) 1 tab PO Q12 [facility] PRN Reason: Protocol Last Admin: 01/12/18 08:07 Dose: 1 tab - Labs Labs: 01/11/18 05:20 01/11/18 05:20 - Extremities Exam Additional comments: L hip: no swelling, no ecchymosis, no lesions mild tenderness lateral hip and groin sensation intact SP/DP/TN motor intact EHL/FHL/TA/G pedal pulses intact comps soft NT Assessment and Plan (1) Closed fracture of left inferior pubic ramus Status: Acute (2) Closed left acetabular fracture Assessment & Plan: -conservative management -pain control -PT/OT TTWB LLE -DVT ppx -orthopedically stable -above d/w Dr. Mejia in agreement Status: Acute
[2018-01-12] MEDS: Lidocaine 5% Patch TD SCH ×2 (11:47→11:48)
--- NOTE | 2018-01-12 18:21 | CP.PCM.PN ---
Subjective - Date & Time of Evaluation Date of Evaluation: 01/12/18 Time of Evaluation: 18:21 - Subjective Subjective: Patient seen in room pain controlled happy stopped smoking has patch denies sob/cp continue current care Objective - Vital Signs/Intake and Output Vital Signs (last 24 hours): Temp Pulse Resp BP Pulse Ox 98 F 87 19 141/62 97 01/12/18 07:54 01/12/18 11:37 01/12/18 07:54 01/12/18 17:03 01/12/18 07:54 - Medications Medications: Current Medications Atorvastatin Calcium (Lipitor) 10 mg PO HS [facility] Last Admin: 01/11/18 21:00 Dose: 10 mg Docusate Sodium (Colace) 100 mg PO TID [facility] Last Admin: 01/12/18 16:07 Dose: 100 mg Enoxaparin Sodium (Lovenox) 40 mg SC DAILY [facility] PRN Reason: Protocol Last Admin: 01/12/18 08:06 Dose: 40 mg Hydrocortisone (Hydrocortisone 0.5%) 1 applic TOP DAILY [facility] Last Admin: 01/12/18 08:09 Dose: 1 applic Insulin Detemir (Levemir) 18 units SC [facility] Lidocaine (Lidoderm) 1 ea TD DAILY [facility] Last Admin: 01/12/18 11:47 Dose: 1 ea Lidocaine (Lidoderm) 1 ea TD DAILY [facility] Last Admin: 01/12/18 11:48 Dose: 1 ea Losartan Potassium (Cozaar) 100 mg PO DAILY [facility] Last Admin: 01/12/18 11:37 Dose: Not Given Magnesium Hydroxide (Milk Of Magnesia) 30 ml PO DAILY PRN PRN Reason: Constipation Metformin HCl (Glucophage) 1,000 mg PO BIDWM [facility] Last Admin: 01/12/18 16:07 Dose: 1,000 mg Nicotine (Nicoderm Cq) 1 patch TD DAILY [facility] Last Admin: 01/12/18 08:08 Dose: 1 patch Ondansetron HCl (Zofran Tab) 4 mg PO Q6 PRN PRN Reason: Nausea/Vomiting Last Admin: 01/10/18 16:59 Dose: 4 mg Oxycodone HCl (Oxycodone Immediate Release Tab) 5 mg PO Q6 PRN PRN Reason: pain 4-7/10 Last Admin: 01/11/18 23:39 Dose: 5 mg Oxycodone HCl (Oxycodone Immediate Release Tab) 10 mg PO Q6 PRN PRN Reason: Last Admin: 01/11/18 14:45 Dose: 10 mg Pantoprazole Sodium (Protonix Ec Tab) 40 mg PO DAILY [facility] Last Admin: 01/12/18 08:07 Dose: 40 mg Sitagliptin Phosphate (Januvia) 100 mg PO DAILY [facility] Last Admin: 01/12/18 08:08 Dose: 100 mg Trimethoprim/Sulfamethoxazole (Bactrim Ds Tab) 1 tab PO Q12 [facility] PRN Reason: Protocol Last Admin: 01/12/18 08:07 Dose: 1 tab - Labs Labs: 01/11/18 05:20 01/11/18 05:20
[2018-01-12] MEDS: oxyCODONE 5 mg Immediate Release Tab PO PRN (20:03)
[2018-01-12] MEDS: Insulin Detemir 100 Units/ml Inj SC SCH ×2 (21:15)
[2018-01-13] MEDS: Lidocaine 5% Patch TD SCH ×2 (08:50→08:51)
[2018-01-13] MEDS: Pantoprazole 40 mg EC Tab PO SCH (08:52)
[2018-01-13] MEDS: Enoxaparin 40 mg Syringe SC SCH (08:52)
[2018-01-13] MEDS: Tmp-Smz 800 mg-160 mg DS Tab PO SCH ×2 (08:53→21:38)
[2018-01-13] MEDS: Hydrocortisone 0.5% OINT TOP SCH (09:00)
--- NOTE | 2018-01-13 12:07 | CP.PCM.PN ---
Subjective - Date & Time of Evaluation Date of Evaluation: 01/13/18 Time of Evaluation: 11:00 - Subjective Subjective: Patient states the pain in her hip is much better. She says it still hurts, but it is much less pain than initially. Denies CP/SOB?dizziness/numbness/tingling Review of Systems - Review of Systems All systems: reviewed and no additional remarkable complaints except - Constitutional Constitutional: Fever, Chills - Cardiovascular Cardiovascular: As Per HPI - Respiratory Respiratory: As Per HPI - Musculoskeletal Musculoskeletal: As Par HPI - Integumentary Integumentary: UNREMARKABLE - Neurological Neurological: As Per HPI - Hematologic/Lymphatic Hematologic: UNREMARKABLE Objective - Vital Signs/Intake and Output Vital Signs (last 24 hours): Temp Pulse Resp BP Pulse Ox 98 F 87 20 108/50 L 98 01/13/18 08:48 01/13/18 08:48 01/13/18 08:48 01/13/18 08:48 01/13/18 08:48 - Medications Medications: Current Medications Atorvastatin Calcium (Lipitor) 10 mg PO HS [facility] Last Admin: 01/12/18 21:15 Dose: 10 mg Docusate Sodium (Colace) 100 mg PO TID [facility] Last Admin: 01/13/18 08:53 Dose: 100 mg Enoxaparin Sodium (Lovenox) 40 mg SC DAILY [facility] PRN Reason: Protocol Last Admin: 01/13/18 08:52 Dose: 40 mg Hydrocortisone (Hydrocortisone 0.5%) 1 applic TOP DAILY [facility] Last Admin: 01/12/18 08:09 Dose: 1 applic Insulin Detemir (Levemir) 18 units SC HS [facility] Last Admin: 01/12/18 21:15 Dose: 18 units Lidocaine (Lidoderm) 1 ea TD DAILY [facility] Last Admin: 01/13/18 08:50 Dose: 1 ea Lidocaine (Lidoderm) 1 ea TD DAILY [facility] Last Admin: 01/13/18 08:51 Dose: 1 ea Losartan Potassium (Cozaar) 100 mg PO DAILY [facility] Last Admin: 01/12/18 11:37 Dose: Not Given Magnesium Hydroxide (Milk Of Magnesia) 30 ml PO DAILY PRN PRN Reason: Constipation Metformin HCl (Glucophage) 1,000 mg PO BIDWM [facility] Last Admin: 01/13/18 08:53 Dose: 1,000 mg Nicotine (Nicoderm Cq) 1 patch TD DAILY [facility] Last Admin: 01/13/18 08:54 Dose: 1 patch Ondansetron HCl (Zofran Tab) 4 mg PO Q6 PRN PRN Reason: Nausea/Vomiting Last Admin: 01/10/18 16:59 Dose: 4 mg Oxycodone HCl (Oxycodone Immediate Release Tab) 5 mg PO Q6 PRN PRN Reason: pain 4-710 Last Admin: 01/12/18 20:03 Dose: 5 mg Oxycodone HCl (Oxycodone Immediate Release Tab) 10 mg PO Q6 PRN PRN Reason: 8-02/15 Last Admin: 01/11/18 14:45 Dose: 10 mg Pantoprazole Sodium (Protonix Ec Tab) 40 mg PO DAILY [facility] Last Admin: 01/13/18 08:52 Dose: 40 mg Sitagliptin Phosphate (Januvia) 100 mg PO DAILY [facility] Last Admin: 01/13/18 08:54 Dose: 100 mg Trimethoprim/Sulfamethoxazole (Bactrim Ds Tab) 1 tab PO Q12 [facility] PRN Reason: Protocol Last Admin: 01/13/18 08:53 Dose: 1 tab - Labs Labs: 01/11/18 05:20 01/11/18 05:20 - Extremities Exam Additional comments: pain wtih hip ROM, but improved calves soft NT neg homans sensation intact - Neurological Exam Neurological Exam: Alert, Awake, Oriented x3 Neuro motor strength exam: Left Lower Extremity: 5, Right Lower Extremity: 5 - Psychiatric Exam Psychiatric exam: Normal Affect, Normal Mood - Skin Skin Exam: Dry, Intact, Normal Color, Warm Assessment and Plan (1) Closed fracture of left inferior pubic ramus Assessment & Plan: non operative TTWB LLE cont PT/OT orthopedically stable repeat xrays reviewed pelvis with obliques, no obvious displacement of fracture noted, no change from prior imaging as reviewed by me d/w ezra Ramirez wtih abvoe Status: Acute (2) Closed left acetabular fracture Status: Acute
--- NOTE | 2018-01-13 13:50 | RAD ---
Date of service: 01/13/2018 PROCEDURE: Radiographs of the pelvis. HISTORY: left acetabular fracture follow up COMPARISON: None. FINDINGS: BONES: Pelvic Bones/hips: Nondisplaced medial left acetabular fractures not detected in the current examination. Consider follow-up CT an appropriate time frame as clinically warranted. No fracture dislocation of either hip joint is appreciated degenerative sacroiliac and hip joint changes present once again. Vascular calcifications are identified in the inguinal and medial thigh soft tissues bilaterally as well as likely phleboliths at the inferior pelvic soft tissues. Diffuse osteopenia suggests osteoporosis. No dislocation of bilateral hip joints. JOINTS: As above. Pubic symphysis appears intact. OTHER FINDINGS: None. IMPRESSION: Prior left chest hilar fracture is not detected on the current radiograph series. 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 Consider follow-up CT as clinically warranted. Diffuse osteopenia suggests osteoporosis.
[2018-01-13] MEDS: Insulin Detemir 100 Units/ml Inj SC SCH (21:38)
[2018-01-14 08:06] LABS: HEMOGLOBIN 13.4 g/dL (12.0-16.0); MEAN CELL VOLUME 92.4 fl (81.0-99.0); MEAN CORPUSCULAR HEMOGLOBIN 32.3 pg (27.0-31.0); MEAN CORPUSCULAR HGB CONC 34.9 g/dL (33.0-37.0); RBC 4.14 Mil/uL (3.80-5.20); RED CELL DISTRIBUTION WIDTH 13.5 % (11.5-14.5); WHITE BLOOD COUNT 5.4 K/uL (4.8-10.8)
[2018-01-14 08:07] LABS: BLOOD UREA NITROGEN 20 mg/dl (7-17); CALCIUM 9.7 mg/dL (8.4-10.2); GFR NON-AFRICAN AMERICAN > 60
[2018-01-14 08:34] LABS: SQUAMOUS EPITHIAL 1 /hpf (0-5); URINE BACTERIA MANY (<OCC); URINE BILIRUBIN NEGATIVE (NEGATIVE); URINE BLOOD NEGATIVE (NEGATIVE); URINE CLARITY CLEAR (Clear); URINE COLOR YELLOW (YELLOW); URINE GLUCOSE (UA) >=500 mg/dL (Normal); URINE LEUKOCYTE ESTERASE NEG Leu/uL (Negative); URINE PROTEIN NEGATIVE (NEGATIVE)
[2018-01-14] MEDS: Lidocaine 5% Patch TD SCH ×2 (09:19→09:21)
[2018-01-14] MEDS: Enoxaparin 40 mg Syringe SC SCH (09:19)
[2018-01-14] MEDS: Pantoprazole 40 mg EC Tab PO SCH (09:26)
[2018-01-14] MEDS: Tmp-Smz 800 mg-160 mg DS Tab PO SCH (09:28)
--- NOTE | 2018-01-14 10:57 | CP.PCM.PN ---
Subjective - Date & Time of Evaluation Date of Evaluation: 01/14/18 Time of Evaluation: 11:00 - Subjective Subjective: S- pt continues to imporove/minimal discomfort Objective - Vital Signs/Intake and Output Vital Signs (last 24 hours): Temp Pulse Resp BP Pulse Ox 98.1 F 85 20 125/55 L 95 01/13/18 21:00 01/13/18 21:00 01/13/18 21:00 01/13/18 21:00 01/13/18 21:00 - Medications Medications: Current Medications Atorvastatin Calcium (Lipitor) 10 mg PO HS [facility] Last Admin: 01/13/18 21:38 Dose: 10 mg Docusate Sodium (Colace) 100 mg PO TID [facility] Last Admin: 01/14/18 09:29 Dose: 100 mg Enoxaparin Sodium (Lovenox) 40 mg SC DAILY [facility] PRN Reason: Protocol Last Admin: 01/14/18 09:19 Dose: 40 mg Hydrocortisone (Cortizone 0.5% Cream) 1 applic TOP DAILY [facility] Last Admin: 01/14/18 09:29 Dose: 1 applic Insulin Detemir (Levemir) 18 units SC HS [facility] Last Admin: 01/13/18 21:38 Dose: 18 units Lidocaine (Lidoderm) 1 ea TD DAILY [facility] Last Admin: 01/14/18 09:19 Dose: 1 ea Lidocaine (Lidoderm) 1 ea TD DAILY [facility] Last Admin: 01/14/18 09:21 Dose: 1 ea Losartan Potassium (Cozaar) 100 mg PO DAILY [facility] Last Admin: 01/12/18 11:37 Dose: Not Given Magnesium Hydroxide (Milk Of Magnesia) 30 ml PO DAILY PRN PRN Reason: Constipation Metformin HCl (Glucophage) 1,000 mg PO BIDWM [facility] Last Admin: 01/14/18 08:00 Dose: 1,000 mg Nicotine (Nicoderm Cq) 1 patch TD DAILY [facility] Last Admin: 01/14/18 09:25 Dose: 1 patch Ondansetron HCl (Zofran Tab) 4 mg PO Q6 PRN PRN Reason: Nausea/Vomiting Last Admin: 01/10/18 16:59 Dose: 4 mg Oxycodone HCl (Oxycodone Immediate Release Tab) 5 mg PO Q6 PRN PRN Reason: pain 4-7/10 Last Admin: 01/12/18 20:03 Dose: 5 mg Oxycodone HCl (Oxycodone Immediate Release Tab) 10 mg PO Q6 PRN PRN Reason: Last Admin: 01/11/18 14:45 Dose: 10 mg Pantoprazole Sodium (Protonix Ec Tab) 40 mg PO DAILY [facility] Last Admin: 01/14/18 09:26 Dose: 40 mg Sitagliptin Phosphate (Januvia) 100 mg PO DAILY [facility] Last Admin: 01/14/18 09:29 Dose: 100 mg - Labs Labs: 01/14/18 05:30 01/14/18 05:30 - Skin Additional comments: Objective stance/gait- defrred orthopedically stable decreased tenderness to palpation Assessment and Plan - Assessment and Plan (Free Text) Assessment: A- s/p nondisplaced aceatbular fx P- orthopedcially stable continue foot flatw eifgth bearing with walker
[2018-01-14] MEDS: oxyCODONE 5 mg Immediate Release Tab PO PRN (14:22)
[2018-01-14] MEDS: Insulin Detemir 100 Units/ml Inj SC SCH (21:02)
[2018-01-15] MEDS: Enoxaparin 40 mg Syringe SC SCH (08:31)
[2018-01-15] MEDS: Pantoprazole 40 mg EC Tab PO SCH (08:31)
[2018-01-15] MEDS: Lidocaine 5% Patch TD SCH ×2 (08:32→08:48)
--- NOTE | 2018-01-15 15:44 | CP.PCM.PN ---
Subjective - Date & Time of Evaluation Date of Evaluation: 01/15/18 Time of Evaluation: 11:00 - Subjective Subjective: patient seen and examined at bedside. no acute events overnight. Patient states she feels well. Patient states pain has improved. Doing well with rehab. No other complaints offered at this time. Objective - Vital Signs/Intake and Output Vital Signs (last 24 hours): Temp Pulse Resp BP Pulse Ox 97.3 F L 83 20 109/60 97 01/15/18 10:00 01/15/18 11:19 01/15/18 10:00 01/15/18 11:19 01/15/18 10:00 - Medications Medications: Current Medications Atorvastatin Calcium (Lipitor) 10 mg PO HS [facility] Last Admin: 01/14/18 21:02 Dose: 10 mg Docusate Sodium (Colace) 100 mg PO TID [facility] Last Admin: 01/15/18 12:21 Dose: 100 mg Enoxaparin Sodium (Lovenox) 40 mg SC DAILY [facility] PRN Reason: Protocol Last Admin: 01/15/18 08:31 Dose: 40 mg Hydrocortisone (Cortizone 0.5% Cream) 1 applic TOP DAILY [facility] Last Admin: 01/15/18 08:30 Dose: 1 applic Insulin Detemir (Levemir) 18 units SC HS [facility] Last Admin: 01/14/18 21:02 Dose: 18 units Lidocaine (Lidoderm) 1 ea TD DAILY [facility] Last Admin: 01/15/18 08:32 Dose: 1 ea Lidocaine (Lidoderm) 1 ea TD DAILY [facility] Last Admin: 01/15/18 08:48 Dose: 1 ea Losartan Potassium (Cozaar) 100 mg PO DAILY [facility] Last Admin: 01/12/18 11:37 Dose: Not Given Losartan Potassium (Cozaar) 25 mg PO DAILY [facility] Magnesium Hydroxide (Milk Of Magnesia) 30 ml PO DAILY PRN PRN Reason: Constipation Metformin HCl (Glucophage) 1,000 mg PO BIDWM [facility] Last Admin: 01/15/18 08:31 Dose: 1,000 mg Nicotine (Nicoderm Cq) 1 patch TD DAILY [facility] Last Admin: 01/15/18 08:32 Dose: 1 patch Ondansetron HCl (Zofran Tab) 4 mg PO Q6 PRN PRN Reason: Nausea/Vomiting Last Admin: 01/10/18 16:59 Dose: 4 mg Oxycodone HCl (Oxycodone Immediate Release Tab) 5 mg PO Q6 PRN PRN Reason: pain 4-710 Last Admin: 01/14/18 14:22 Dose: 5 mg Oxycodone HCl (Oxycodone Immediate Release Tab) 10 mg PO Q6 PRN PRN Reason: 8-10 Last Admin: 01/11/18 14:45 Dose: 10 mg Pantoprazole Sodium (Protonix Ec Tab) 40 mg PO DAILY [facility] Last Admin: 01/15/18 08:31 Dose: 40 mg Sitagliptin Phosphate (Januvia) 100 mg PO DAILY [facility] Last Admin: 01/15/18 08:31 Dose: 100 mg - Labs Labs: 01/14/18 05:30 01/14/18 05:30 - Constitutional Appears: Well - Head Exam Head Exam: ATRAUMATIC, NORMAL INSPECTION, NORMOCEPHALIC - Eye Exam Eye Exam: EOMI, Normal appearance, PERRL - Neck Exam Neck Exam: Normal Inspection - Respiratory Exam Respiratory Exam: Clear to Ausculation Bilateral, NORMAL BREATHING PATTERN - Cardiovascular Exam Cardiovascular Exam: REGULAR RHYTHM, +S1, +S2. absent: Murmur - GI/Abdominal Exam GI & Abdominal Exam: Soft, Normal Bowel Sounds. absent: Tenderness - Back Exam Back Exam: NORMAL INSPECTION - Neurological Exam Neurological Exam: Alert, Awake, Oriented x3 - Psychiatric Exam Psychiatric exam: Normal Affect, Normal Mood - Skin Skin Exam: Dry, Intact, Normal Color, Warm Assessment and Plan - Assessment and Plan (Free Text) Assessment: 67 yo female admitted to rehab s/p nondisplaced aceatbular fx repair. plan doing well with meds prescribed and rehab jardiance started yesterday. patient states son will obtain medication tomorrow c/w meds and rehab at this time.
[2018-01-15] MEDS: Insulin Detemir 100 Units/ml Inj SC SCH (21:16)
--- NOTE | 2018-01-15 22:36 | CP.PCM.PN ---
Subjective - Date & Time of Evaluation Date of Evaluation: 01/11/18 Time of Evaluation: 11:00 - Subjective Subjective: patient continues to do well with PT Has persistent pain on the fx site. Noted elevated FBS. On januvia and Metformin Objective - Vital Signs/Intake and Output Vital Signs (last 24 hours): Temp Pulse Resp BP Pulse Ox 97.3 F L 83 20 109/60 97 01/15/18 10:00 01/15/18 11:19 01/15/18 10:00 01/15/18 11:19 01/15/18 10:00 - Medications Medications: Current Medications Atorvastatin Calcium (Lipitor) 10 mg PO HS [facility] Last Admin: 01/15/18 21:16 Dose: 10 mg Docusate Sodium (Colace) 100 mg PO TID [facility] Last Admin: 01/15/18 16:26 Dose: Not Given Enoxaparin Sodium (Lovenox) 40 mg SC DAILY [facility] PRN Reason: Protocol Last Admin: 01/15/18 08:31 Dose: 40 mg Hydrocortisone (Cortizone 0.5% Cream) 1 applic TOP DAILY [facility] Last Admin: 01/15/18 08:30 Dose: 1 applic Insulin Detemir (Levemir) 18 units SC HS [facility] Last Admin: 01/15/18 21:16 Dose: 18 units Lidocaine (Lidoderm) 1 ea TD DAILY [facility] Last Admin: 01/15/18 08:32 Dose: 1 ea Lidocaine (Lidoderm) 1 ea TD DAILY [facility] Last Admin: 01/15/18 08:48 Dose: 1 ea Losartan Potassium (Cozaar) 100 mg PO DAILY [facility] Last Admin: 01/12/18 11:37 Dose: Not Given Losartan Potassium (Cozaar) 25 mg PO DAILY [facility] Magnesium Hydroxide (Milk Of Magnesia) 30 ml PO DAILY PRN PRN Reason: Constipation Metformin HCl (Glucophage) 1,000 mg PO BIDWM [facility] Last Admin: 01/15/18 17:17 Dose: 1,000 mg Nicotine (Nicoderm Cq) 1 patch TD DAILY [facility] Last Admin: 01/15/18 08:32 Dose: 1 patch Ondansetron HCl (Zofran Tab) 4 mg PO Q6 PRN PRN Reason: Nausea/Vomiting Last Admin: 01/10/18 16:59 Dose: 4 mg Oxycodone HCl (Oxycodone Immediate Release Tab) 5 mg PO Q6 PRN PRN Reason: pain 4-11/15 Last Admin: 01/14/18 14:22 Dose: 5 mg Oxycodone HCl (Oxycodone Immediate Release Tab) 10 mg PO Q6 PRN PRN Reason: 8-02/15 Last Admin: 01/11/18 14:45 Dose: 10 mg Pantoprazole Sodium (Protonix Ec Tab) 40 mg PO DAILY [facility] Last Admin: 01/15/18 08:31 Dose: 40 mg Sitagliptin Phosphate (Januvia) 100 mg PO DAILY [facility] Last Admin: 01/15/18 08:31 Dose: 100 mg - Labs Labs: 01/14/18 05:30 01/14/18 05:30 - Head Exam Head Exam: NORMAL INSPECTION - Eye Exam Eye Exam: Normal appearance - ENT Exam ENT Exam: Mucous Membranes Moist - Respiratory Exam Respiratory Exam: Clear to Ausculation Bilateral - Cardiovascular Exam Cardiovascular Exam: REGULAR RHYTHM - GI/Abdominal Exam GI & Abdominal Exam: Normal Bowel Sounds - Neurological Exam Neurological Exam: Awake, Oriented x3 Assessment and Plan (1) Closed left acetabular fracture Status: Acute (2) Hyperlipidemia Status: Chronic (3) Hypertension Status: Chronic (4) Uncontrolled diabetes mellitus Status: Chronic - Assessment and Plan (Free Text) Plan: Cont meds adjust levemir at hs cont januvia and metformin Cont PT
--- NOTE | 2018-01-15 22:39 | CP.PCM.PN ---
Subjective - Date & Time of Evaluation Date of Evaluation: 01/12/18 Time of Evaluation: 11:00 - Subjective Subjective: Patient continues to do well Has no chest pain or SOB Afebirle Still with elevated FBS Has persistent pain on the fx site. Objective - Vital Signs/Intake and Output Vital Signs (last 24 hours): Temp Pulse Resp BP Pulse Ox 97.3 F L 83 20 109/60 97 01/15/18 10:00 01/15/18 11:19 01/15/18 10:00 01/15/18 11:19 01/15/18 10:00 - Medications Medications: Current Medications Atorvastatin Calcium (Lipitor) 10 mg PO HS [facility] Last Admin: 01/15/18 21:16 Dose: 10 mg Docusate Sodium (Colace) 100 mg PO TID [facility] Last Admin: 01/15/18 16:26 Dose: Not Given Enoxaparin Sodium (Lovenox) 40 mg SC DAILY [facility] PRN Reason: Protocol Last Admin: 01/15/18 08:31 Dose: 40 mg Hydrocortisone (Cortizone 0.5% Cream) 1 applic TOP DAILY [facility] Last Admin: 01/15/18 08:30 Dose: 1 applic Insulin Detemir (Levemir) 18 units SC HS [facility] Last Admin: 01/15/18 21:16 Dose: 18 units Lidocaine (Lidoderm) 1 ea TD DAILY [facility] Last Admin: 01/15/18 08:32 Dose: 1 ea Lidocaine (Lidoderm) 1 ea TD DAILY [facility] Last Admin: 01/15/18 08:48 Dose: 1 ea Losartan Potassium (Cozaar) 100 mg PO DAILY [facility] Last Admin: 01/12/18 11:37 Dose: Not Given Losartan Potassium (Cozaar) 25 mg PO DAILY [facility] Magnesium Hydroxide (Milk Of Magnesia) 30 ml PO DAILY PRN PRN Reason: Constipation Metformin HCl (Glucophage) 1,000 mg PO BIDWM [facility] Last Admin: 01/15/18 17:17 Dose: 1,000 mg Nicotine (Nicoderm Cq) 1 patch TD DAILY [facility] Last Admin: 01/15/18 08:32 Dose: 1 patch Ondansetron HCl (Zofran Tab) 4 mg PO Q6 PRN PRN Reason: Nausea/Vomiting Last Admin: 01/10/18 16:59 Dose: 4 mg Oxycodone HCl (Oxycodone Immediate Release Tab) 5 mg PO Q6 PRN PRN Reason: pain 4-11/15 Last Admin: 01/14/18 14:22 Dose: 5 mg Oxycodone HCl (Oxycodone Immediate Release Tab) 10 mg PO Q6 PRN PRN Reason: 8-02/15 Last Admin: 01/11/18 14:45 Dose: 10 mg Pantoprazole Sodium (Protonix Ec Tab) 40 mg PO DAILY [facility] Last Admin: 01/15/18 08:31 Dose: 40 mg Sitagliptin Phosphate (Januvia) 100 mg PO DAILY [facility] Last Admin: 01/15/18 08:31 Dose: 100 mg - Labs Labs: 01/14/18 05:30 01/14/18 05:30 - Head Exam Head Exam: NORMAL INSPECTION - Eye Exam Eye Exam: Normal appearance - Respiratory Exam Respiratory Exam: Clear to Ausculation Bilateral - Cardiovascular Exam Cardiovascular Exam: REGULAR RHYTHM - GI/Abdominal Exam GI & Abdominal Exam: Normal Bowel Sounds - Neurological Exam Neurological Exam: Awake, Oriented x3 Assessment and Plan (1) Closed left acetabular fracture Status: Acute (2) Hyperlipidemia Status: Chronic (3) Hypertension Status: Chronic (4) Uncontrolled diabetes mellitus Status: Chronic - Assessment and Plan (Free Text) Plan: Cont meds Cont tx Cont PT Pain meds adjust levemir will add Invokana
--- NOTE | 2018-01-15 22:48 | CP.PCM.PN ---
Subjective - Date & Time of Evaluation Date of Evaluation: 01/13/18 Time of Evaluation: 11:00 - Subjective Subjective: Patient is doing well with PT Maintained on pain meds Still with elevated FBS. Has no fever. Objective - Vital Signs/Intake and Output Vital Signs (last 24 hours): Temp Pulse Resp BP Pulse Ox 97.3 F L 83 20 109/60 97 01/15/18 10:00 01/15/18 11:19 01/15/18 10:00 01/15/18 11:19 01/15/18 10:00 - Medications Medications: Current Medications Atorvastatin Calcium (Lipitor) 10 mg PO HS [facility] Last Admin: 01/15/18 21:16 Dose: 10 mg Docusate Sodium (Colace) 100 mg PO TID [facility] Last Admin: 01/15/18 16:26 Dose: Not Given Enoxaparin Sodium (Lovenox) 40 mg SC DAILY [facility] PRN Reason: Protocol Last Admin: 01/15/18 08:31 Dose: 40 mg Hydrocortisone (Cortizone 0.5% Cream) 1 applic TOP DAILY [facility] Last Admin: 01/15/18 08:30 Dose: 1 applic Insulin Detemir (Levemir) 18 units SC HS [facility] Last Admin: 01/15/18 21:16 Dose: 18 units Lidocaine (Lidoderm) 1 ea TD DAILY [facility] Last Admin: 01/15/18 08:32 Dose: 1 ea Lidocaine (Lidoderm) 1 ea TD DAILY [facility] Last Admin: 01/15/18 08:48 Dose: 1 ea Losartan Potassium (Cozaar) 100 mg PO DAILY [facility] Last Admin: 01/12/18 11:37 Dose: Not Given Losartan Potassium (Cozaar) 25 mg PO DAILY [facility] Magnesium Hydroxide (Milk Of Magnesia) 30 ml PO DAILY PRN PRN Reason: Constipation Metformin HCl (Glucophage) 1,000 mg PO BIDWM [facility] Last Admin: 01/15/18 17:17 Dose: 1,000 mg Nicotine (Nicoderm Cq) 1 patch TD DAILY [facility] Last Admin: 01/15/18 08:32 Dose: 1 patch Ondansetron HCl (Zofran Tab) 4 mg PO Q6 PRN PRN Reason: Nausea/Vomiting Last Admin: 01/10/18 16:59 Dose: 4 mg Oxycodone HCl (Oxycodone Immediate Release Tab) 5 mg PO Q6 PRN PRN Reason: pain 4-11/15 Last Admin: 01/14/18 14:22 Dose: 5 mg Oxycodone HCl (Oxycodone Immediate Release Tab) 10 mg PO Q6 PRN PRN Reason: 8-02/15 Last Admin: 01/11/18 14:45 Dose: 10 mg Pantoprazole Sodium (Protonix Ec Tab) 40 mg PO DAILY [facility] Last Admin: 01/15/18 08:31 Dose: 40 mg Sitagliptin Phosphate (Januvia) 100 mg PO DAILY [facility] Last Admin: 01/15/18 08:31 Dose: 100 mg - Labs Labs: 01/14/18 05:30 01/14/18 05:30 - Head Exam Head Exam: NORMAL INSPECTION - Eye Exam Eye Exam: Normal appearance - ENT Exam ENT Exam: Mucous Membranes Moist - Respiratory Exam Respiratory Exam: Clear to Ausculation Bilateral - Cardiovascular Exam Cardiovascular Exam: REGULAR RHYTHM - Neurological Exam Neurological Exam: Oriented x3 Assessment and Plan (1) Closed left acetabular fracture Status: Acute (2) Hyperlipidemia Status: Chronic (3) Hypertension Status: Chronic (4) Uncontrolled diabetes mellitus Status: Chronic - Assessment and Plan (Free Text) Plan: Cont meds Cont tx Cont PT Pain meds advised adding Invokana to DM 2 regimen.
--- NOTE | 2018-01-15 22:51 | CP.PCM.PN ---
Subjective - Date & Time of Evaluation Date of Evaluation: 01/14/18 Time of Evaluation: 10:30 - Subjective Subjective: Patient is doing better Has no fever Doing well with PT Has no chest pain or SOB Still with a lot of pain on the hip area. Objective - Vital Signs/Intake and Output Vital Signs (last 24 hours): Temp Pulse Resp BP Pulse Ox 97.3 F L 83 20 109/60 97 01/15/18 10:00 01/15/18 11:19 01/15/18 10:00 01/15/18 11:19 01/15/18 10:00 - Medications Medications: Current Medications Atorvastatin Calcium (Lipitor) 10 mg PO HS [facility] Last Admin: 01/15/18 21:16 Dose: 10 mg Docusate Sodium (Colace) 100 mg PO TID [facility] Last Admin: 01/15/18 16:26 Dose: Not Given Enoxaparin Sodium (Lovenox) 40 mg SC DAILY [facility] PRN Reason: Protocol Last Admin: 01/15/18 08:31 Dose: 40 mg Hydrocortisone (Cortizone 0.5% Cream) 1 applic TOP DAILY [facility] Last Admin: 01/15/18 08:30 Dose: 1 applic Insulin Detemir (Levemir) 18 units SC HS [facility] Last Admin: 01/15/18 21:16 Dose: 18 units Lidocaine (Lidoderm) 1 ea TD DAILY [facility] Last Admin: 01/15/18 08:32 Dose: 1 ea Lidocaine (Lidoderm) 1 ea TD DAILY [facility] Last Admin: 01/15/18 08:48 Dose: 1 ea Losartan Potassium (Cozaar) 100 mg PO DAILY [facility] Last Admin: 01/12/18 11:37 Dose: Not Given Losartan Potassium (Cozaar) 25 mg PO DAILY [facility] Magnesium Hydroxide (Milk Of Magnesia) 30 ml PO DAILY PRN PRN Reason: Constipation Metformin HCl (Glucophage) 1,000 mg PO BIDWM [facility] Last Admin: 01/15/18 17:17 Dose: 1,000 mg Nicotine (Nicoderm Cq) 1 patch TD DAILY [facility] Last Admin: 01/15/18 08:32 Dose: 1 patch Ondansetron HCl (Zofran Tab) 4 mg PO Q6 PRN PRN Reason: Nausea/Vomiting Last Admin: 01/10/18 16:59 Dose: 4 mg Oxycodone HCl (Oxycodone Immediate Release Tab) 5 mg PO Q6 PRN PRN Reason: pain 4-11/15 Last Admin: 01/14/18 14:22 Dose: 5 mg Oxycodone HCl (Oxycodone Immediate Release Tab) 10 mg PO Q6 PRN PRN Reason: 8-02/15 Last Admin: 01/11/18 14:45 Dose: 10 mg Pantoprazole Sodium (Protonix Ec Tab) 40 mg PO DAILY [facility] Last Admin: 01/15/18 08:31 Dose: 40 mg Sitagliptin Phosphate (Januvia) 100 mg PO DAILY [facility] Last Admin: 01/15/18 08:31 Dose: 100 mg - Labs Labs: 01/14/18 05:30 01/14/18 05:30 - Head Exam Head Exam: NORMAL INSPECTION - ENT Exam ENT Exam: Mucous Membranes Moist - Respiratory Exam Respiratory Exam: Clear to Ausculation Bilateral - Cardiovascular Exam Cardiovascular Exam: REGULAR RHYTHM - GI/Abdominal Exam GI & Abdominal Exam: Normal Bowel Sounds - Neurological Exam Neurological Exam: Awake, Oriented x3 - Psychiatric Exam Psychiatric exam: Normal Mood Assessment and Plan (1) Closed left acetabular fracture Status: Acute (2) Hyperlipidemia Status: Chronic (3) Hypertension Status: Chronic (4) Uncontrolled diabetes mellitus Status: Chronic - Assessment and Plan (Free Text) Plan: Cont meds Cont PT Rx given for Invokana cont meds
[2018-01-16] MEDS: Enoxaparin 40 mg Syringe SC SCH (08:40)
[2018-01-16] MEDS: Pantoprazole 40 mg EC Tab PO SCH (08:40)
--- NOTE | 2018-01-16 09:32 | CP.PCM.PN ---
Subjective - Date & Time of Evaluation Date of Evaluation: 01/16/18 Time of Evaluation: 09:00 - Subjective Subjective: Patient states she is still having pain in her left hip, but it gets better everyday. No new complaints, just a little tired today. Review of Systems - Review of Systems All systems: reviewed and no additional remarkable complaints except - Musculoskeletal Musculoskeletal: As Par HPI Objective - Vital Signs/Intake and Output Vital Signs (last 24 hours): Temp Pulse Resp BP Pulse Ox 97.7 F 81 18 118/49 L 98 01/16/18 08:44 01/16/18 08:44 01/16/18 08:44 01/16/18 08:44 01/16/18 08:44 - Medications Medications: Current Medications Atorvastatin Calcium (Lipitor) 10 mg PO HS [facility] Last Admin: 01/15/18 21:16 Dose: 10 mg Docusate Sodium (Colace) 100 mg PO TID [facility] Last Admin: 01/16/18 08:38 Dose: Not Given Enoxaparin Sodium (Lovenox) 40 mg SC DAILY [facility] PRN Reason: Protocol Last Admin: 01/16/18 08:40 Dose: 40 mg Hydrocortisone (Cortizone 0.5% Cream) 1 applic TOP DAILY [facility] Last Admin: 01/15/18 08:30 Dose: 1 applic Insulin Detemir (Levemir) 18 units SC HS [facility] Last Admin: 01/15/18 21:16 Dose: 18 units Lidocaine (Lidoderm) 1 ea TD DAILY [facility] Last Admin: 01/15/18 08:32 Dose: 1 ea Lidocaine (Lidoderm) 1 ea TD DAILY [facility] Last Admin: 01/15/18 08:48 Dose: 1 ea Losartan Potassium (Cozaar) 100 mg PO DAILY [facility] Last Admin: 01/12/18 11:37 Dose: Not Given Losartan Potassium (Cozaar) 25 mg PO DAILY [facility] Last Admin: 01/16/18 08:39 Dose: 25 mg Magnesium Hydroxide (Milk Of Magnesia) 30 ml PO DAILY PRN PRN Reason: Constipation Metformin HCl (Glucophage) 1,000 mg PO BIDWM [facility] Last Admin: 01/16/18 08:39 Dose: 1,000 mg Nicotine (Nicoderm Cq) 1 patch TD DAILY [facility] Last Admin: 01/15/18 08:32 Dose: 1 patch Ondansetron HCl (Zofran Tab) 4 mg PO Q6 PRN PRN Reason: Nausea/Vomiting Last Admin: 01/10/18 16:59 Dose: 4 mg Oxycodone HCl (Oxycodone Immediate Release Tab) 5 mg PO Q6 PRN PRN Reason: pain 4-11/15 Last Admin: 01/14/18 14:22 Dose: 5 mg Oxycodone HCl (Oxycodone Immediate Release Tab) 10 mg PO Q6 PRN PRN Reason: 8-02/15 Last Admin: 01/11/18 14:45 Dose: 10 mg Pantoprazole Sodium (Protonix Ec Tab) 40 mg PO DAILY [facility] Last Admin: 01/16/18 08:40 Dose: 40 mg Sitagliptin Phosphate (Januvia) 100 mg PO DAILY [facility] Last Admin: 01/16/18 08:39 Dose: 100 mg - Labs Labs: 01/14/18 05:30 01/14/18 05:30 - Constitutional Appears: Well, No Acute Distress - Head Exam Head Exam: ATRAUMATIC - Neck Exam Neck Exam: Full ROM, Normal Inspection - Respiratory Exam Respiratory Exam: NORMAL BREATHING PATTERN - Cardiovascular Exam Additional comments: +DP/PT pulses - Extremities Exam Additional comments: pain with hip ROM +ROM ankle/toes sensation intact calves soft NT neg homans - Neurological Exam Neurological Exam: Alert, Awake, Oriented x3 Neuro motor strength exam: Left Lower Extremity: 5, Right Lower Extremity: 5 - Psychiatric Exam Psychiatric exam: Normal Affect, Normal Mood - Skin Skin Exam: Dry, Intact, Normal Color, Warm Assessment and Plan (1) Closed fracture of left inferior pubic ramus Assessment & Plan: non operative PT/OT TTWB VTE proph orthopedically stable, imaging reviewed, no change in fx f/u 10-[address] mejia after d/c d/w Dr. Mejia, agrees with above Status: Acute (2) Closed left acetabular fracture Status: Acute Radiology Interpretation - Radiology Interpretation #2 Interpretation: Patient Name / ID : PERRI TARIQ / [id number] Exam Date : 01/13/2018 10:43:56 ( Approved ) Study Comment : Sex / Age : F / 67Y Creator : Harmeet Richards MD Dictator : Harmeet Richards MD Pharmaceutical Sales Specialist : Painter Maintenance : Harmeet Richards MD Approver2 : Report Date : 01/13/2018 13:43:35 My Comment : Date of service: 01/13/2018 PROCEDURE: Radiographs of the pelvis. HISTORY: left acetabular fracture follow up COMPARISON: None. FINDINGS: BONES: Pelvic Bones/hips: Nondisplaced medial left acetabular fractures not detected in the current examination. Consider follow-up CT an appropriate time frame as clinically warranted. No fracture dislocation of either hip joint is appreciated degenerative sacroiliac and hip joint changes present once again. Vascular calcifications are identified in the inguinal and medial thigh soft tissues bilaterally as well as likely phleboliths at the inferior pelvic soft tissues. Diffuse osteopenia suggests osteoporosis. No dislocation of bilateral hip joints. JOINTS: As above. Pubic symphysis appears intact. OTHER FINDINGS: None. IMPRESSION: Prior left chest hilar fracture is not detected on the current radiograph series. 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 Consider follow-up CT as clinically warranted. Diffuse osteopenia suggests osteoporosis.
[2018-01-16] MEDS: oxyCODONE 5 mg Immediate Release Tab PO PRN ×2 (10:15→22:56)
--- NOTE | 2018-01-16 12:02 | CP.PCM.PN ---
Subjective - Date & Time of Evaluation Date of Evaluation: 01/16/18 Time of Evaluation: 12:02 - Subjective Subjective: Patient seen and examined at bedside. No acute changes overnight. States she feels well. No fever, chills, abdominal pain, or new pain from surgical sites. Objective - Vital Signs/Intake and Output Vital Signs (last 24 hours): Temp Pulse Resp BP Pulse Ox 97.7 F 81 18 118/49 L 98 01/16/18 08:44 01/16/18 08:44 01/16/18 08:44 01/16/18 08:44 01/16/18 08:44 - Medications Medications: Current Medications Atorvastatin Calcium (Lipitor) 10 mg PO HS [facility] Last Admin: 01/15/18 21:16 Dose: 10 mg Docusate Sodium (Colace) 100 mg PO TID [facility] Last Admin: 01/16/18 08:38 Dose: Not Given Enoxaparin Sodium (Lovenox) 40 mg SC DAILY [facility] PRN Reason: Protocol Last Admin: 01/16/18 08:40 Dose: 40 mg Hydrocortisone (Cortizone 0.5% Cream) 1 applic TOP DAILY [facility] Last Admin: 01/15/18 08:30 Dose: 1 applic Insulin Detemir (Levemir) 18 units SC HS [facility] Last Admin: 01/15/18 21:16 Dose: 18 units Lidocaine (Lidoderm) 1 ea TD DAILY [facility] Last Admin: 01/15/18 08:32 Dose: 1 ea Lidocaine (Lidoderm) 1 ea TD DAILY [facility] Last Admin: 01/15/18 08:48 Dose: 1 ea Losartan Potassium (Cozaar) 100 mg PO DAILY [facility] Last Admin: 01/12/18 11:37 Dose: Not Given Losartan Potassium (Cozaar) 25 mg PO DAILY [facility] Last Admin: 01/16/18 08:39 Dose: 25 mg Magnesium Hydroxide (Milk Of Magnesia) 30 ml PO DAILY PRN PRN Reason: Constipation Metformin HCl (Glucophage) 1,000 mg PO BIDWM [facility] Last Admin: 01/16/18 08:39 Dose: 1,000 mg Nicotine (Nicoderm Cq) 1 patch TD DAILY [facility] Last Admin: 01/15/18 08:32 Dose: 1 patch Ondansetron HCl (Zofran Tab) 4 mg PO Q6 PRN PRN Reason: Nausea/Vomiting Last Admin: 01/10/18 16:59 Dose: 4 mg Oxycodone HCl (Oxycodone Immediate Release Tab) 5 mg PO Q6 PRN PRN Reason: pain 4-11/15 Last Admin: 01/16/18 10:15 Dose: 5 mg Oxycodone HCl (Oxycodone Immediate Release Tab) 10 mg PO Q6 PRN PRN Reason: 8-02/15 Last Admin: 01/11/18 14:45 Dose: 10 mg Pantoprazole Sodium (Protonix Ec Tab) 40 mg PO DAILY [facility] Last Admin: 01/16/18 08:40 Dose: 40 mg Sitagliptin Phosphate (Januvia) 100 mg PO DAILY [facility] Last Admin: 01/16/18 08:39 Dose: 100 mg - Labs Labs: 01/14/18 05:30 01/14/18 05:30 - Constitutional Appears: Well, Non-toxic, No Acute Distress - Head Exam Head Exam: ATRAUMATIC, NORMAL INSPECTION, NORMOCEPHALIC - Eye Exam Eye Exam: Normal appearance - Respiratory Exam Respiratory Exam: Clear to Ausculation Bilateral, NORMAL BREATHING PATTERN - Cardiovascular Exam Cardiovascular Exam: REGULAR RHYTHM, +S1, +S2. absent: Murmur - GI/Abdominal Exam GI & Abdominal Exam: Soft, Normal Bowel Sounds. absent: Tenderness - Extremities Exam Extremities Exam: Normal Inspection - Back Exam Back Exam: NORMAL INSPECTION - Neurological Exam Neurological Exam: Alert, Awake, Oriented x3 - Psychiatric Exam Psychiatric exam: Normal Affect, Normal Mood - Skin Skin Exam: Normal Color, Warm Assessment and Plan - Assessment and Plan (Free Text) Assessment: 67 yo female in rehab for left hip repair plan encouraged PT/OT start jardiance today continue to monitor BS continue pain management as prescribed.
[2018-01-16] MEDS: Lidocaine 5% Patch TD SCH ×2 (12:32→12:33)
[2018-01-16] MEDS: Insulin Detemir 100 Units/ml Inj SC SCH (21:20)
[2018-01-17 06:02] LABS: HEMOGLOBIN 12.3 g/dL (12.0-16.0); MEAN CELL VOLUME 92.9 fl (81.0-99.0); MEAN CORPUSCULAR HEMOGLOBIN 31.9 pg (27.0-31.0); MEAN CORPUSCULAR HGB CONC 34.4 g/dL (33.0-37.0); RBC 3.84 Mil/uL (3.80-5.20); RED CELL DISTRIBUTION WIDTH 13.6 % (11.5-14.5); WHITE BLOOD COUNT 4.9 K/uL (4.8-10.8)
[2018-01-17 06:09] LABS: BLOOD UREA NITROGEN 18 mg/dl (7-17); CALCIUM 9.3 mg/dL (8.4-10.2); GFR NON-AFRICAN AMERICAN > 60
[2018-01-17] MEDS: Lidocaine 5% Patch TD SCH ×2 (08:13→08:14)
[2018-01-17] MEDS: Enoxaparin 40 mg Syringe SC SCH (08:13)
[2018-01-17] MEDS: Pantoprazole 40 mg EC Tab PO SCH (08:15)
--- NOTE | 2018-01-17 13:23 | CP.PCM.PN ---
Subjective - Date & Time of Evaluation Date of Evaluation: 01/17/18 Time of Evaluation: 12:30 - Subjective Subjective: Patient seen and examined OOB to chair comfortable. Pain at the left hip is mild and sore but continues to improve daily. Tolerating PT well. No other complaints. Objective - Vital Signs/Intake and Output Vital Signs (last 24 hours): Temp Pulse Resp BP Pulse Ox 98.1 F 74 19 124/70 98 01/17/18 09:04 01/17/18 10:24 01/17/18 09:04 01/17/18 10:24 01/17/18 09:04 - Medications Medications: Current Medications Atorvastatin Calcium (Lipitor) 10 mg PO HS [facility] Last Admin: 01/16/18 21:20 Dose: 10 mg Docusate Sodium (Colace) 100 mg PO TID [facility] Last Admin: 01/17/18 08:12 Dose: Not Given Enoxaparin Sodium (Lovenox) 40 mg SC DAILY [facility] PRN Reason: Protocol Last Admin: 01/17/18 08:13 Dose: 40 mg Hydrocortisone (Cortizone 0.5% Cream) 1 applic TOP DAILY [facility] Last Admin: 01/17/18 08:12 Dose: 1 applic Insulin Detemir (Levemir) 18 units SC HS [facility] Last Admin: 01/16/18 21:20 Dose: 18 units Lidocaine (Lidoderm) 1 ea TD DAILY [facility] Last Admin: 01/17/18 08:13 Dose: 1 ea Lidocaine (Lidoderm) 1 ea TD DAILY [facility] Last Admin: 01/17/18 08:14 Dose: 1 ea Losartan Potassium (Cozaar) 25 mg PO DAILY [facility] Last Admin: 01/17/18 09:45 Dose: 25 mg Magnesium Hydroxide (Milk Of Magnesia) 30 ml PO DAILY PRN PRN Reason: Constipation Metformin HCl (Glucophage) 1,000 mg PO BIDWM [facility] Last Admin: 01/17/18 08:14 Dose: 1,000 mg Nicotine (Nicoderm Cq) 1 patch TD DAILY [facility] Last Admin: 01/17/18 08:14 Dose: 1 patch Ondansetron HCl (Zofran Tab) 4 mg PO Q6 PRN PRN Reason: Nausea/Vomiting Last Admin: 01/10/18 16:59 Dose: 4 mg Oxycodone HCl (Oxycodone Immediate Release Tab) 5 mg PO Q6 PRN PRN Reason: pain -11/15 Last Admin: 01/16/18 22:56 Dose: 5 mg Oxycodone HCl (Oxycodone Immediate Release Tab) 10 mg PO Q6 PRN PRN Reason: 8-02/15 Last Admin: 01/11/18 14:45 Dose: 10 mg Pantoprazole Sodium (Protonix Ec Tab) 40 mg PO DAILY [facility] Last Admin: 01/17/18 08:15 Dose: 40 mg Sitagliptin Phosphate (Januvia) 100 mg PO DAILY [facility] Last Admin: 01/17/18 08:15 Dose: 100 mg - Labs Labs: 01/17/18 05:30 01/17/18 05:30 - Extremities Exam Additional comments: L hip: no swelling, no ecchymosis, no lesions mild tenderness lateral hip and groin sensation intact SP/DP/TN motor intact EHL/FHL/TA/G pedal pulses intact comps soft NT Assessment and Plan (1) Closed fracture of left inferior pubic ramus Status: Acute (2) Closed left acetabular fracture Assessment & Plan: -conservative management -pain control -PT/OT TTWB LLE -DVT ppx -orthopedically stable -above d/w Dr. Mejia in agreement Status: Acute
[2018-01-17] MEDS: oxyCODONE 5 mg Immediate Release Tab PO PRN ×2 (15:06→21:12)
[2018-01-17] MEDS: JARDIANCE 25 MG PO SCH (16:48)
--- NOTE | 2018-01-17 21:04 | PSY.TMCNF ---
Nursing - Vital Signs Pain: 0 - Medications/Other Issues Comment: Pt at high nutritional risk. goals: 1. Pt to consume 75-100% of meals (met, continue). 2. Blood glucoses to be between 70-180 mg/dl(HgbA1C to trend downward over next few months)(not met, continue). Follow-up due on 01/21/2018 - Toileting Toileting: Maximal Assistance - Bladder Management Bladder Pattern: Normal Voiding Method: Bedpan - Bowel Management Bowel Pattern: Normal - Goals/Time Frame Comments: Pt was observed sitting in her wheelchair bedside while doing a crossword puzzle. Pt was greeted by flex o writer operator and agreeable for activities assessment. Pt was attentive and engaged in conversation with no verbal cues. Pt reports living at home with her adult son. Pt spoke about her daily routine, including caring for a young child and taking him to barrel filler head activities. Pt reports many leisure interests, including puzzles, Facebook, socializing and group activities. Pt remained engaged throughout assessment. Physical Therapy - Bed Mobility Bed Mobility: Contact Guard - Transfers Wheelchair to Mat: Supervision, Verbal Cues Sit to Stand: Supervision, Verbal Cues - Ambulation Level of Assistance: Supervision Distance (ft.): 125 Assistive Devices: Rolling Walker - Stair Negotiation Stairs: Level of Assistance: Minimal Assistance Number of Stairs: 4 Stairs: Assistive Devices: Left Handrail - Standing Balance Static Stand: Supervision - Pain Management Techniques: Medication - Insight/Carryover Insight/Carryover: Good - Patient/Family Education Comment: weight bearing precautions, safety, d/c planning - Assessment/Plan Assessment: Pt is actively participating in PT tx sessions focusing on BLE strengthening exercises, balance and endurance activities, and functional mobility training. Pt performed bed mobility CGA, transfers with RW and S, and gait with close S. Pt requires min A to negotiate stairs with min A using bumping technique.Therapist discussed carry up via ambulance to enter/exit home. Pt will continue to benefit from skilled PT interventions to address deficits, reduce fall risk, and maximize functional independence. - Goals Timeframe: 2 weeks Goals: Pt will ambulate 150 ft mod I with RW, TTWB LLE. Pt will negotiate 6 steps with B handrails and CGA. Pt will perform all functional transfers mod I with RW. Pt will perform bed mobility mod I - Provider Therapist: Katy DelgadoPT, DPT License Number: [id number] Occupational Therapy - Arousal/Attention/Orientation Patient Orientation: Person, Place, Time, Appropriate to Age, Appropriate to Situation - ADL/IADL Self Feeding: Modified Independent Grooming: Set-up Help Bathing-Upper Extremity: Supervision, Verbal Cues, Set-up Help Bathing-Lower Extremity: Verbal Cues, Set-up Help, Minimal Assistance Dressing-Upper Extremity: Independent, Set-up Help Dressing-Lower Extremity: Supervision, Verbal Cues, Set-up Help - Sitting Balance Static Sitting: Independent without upper extremity support Dynamic Sitting: Reaches across midline, Reaches out of base of support, Reaches within base of support, Requires supervision Comment: unsupported - Transfers Wheelchair to Bed Transfers: Supervision, Verbal Cues, Set-up Help, Contact Guard Toilet Transfers: Supervision, Verbal Cues, Set-up Help Comment: shower transfers: CG/Min assist and verbal cues - Wheelchair Management Level of Assistance: Supervision, Verbal Cues Distance (ft.): 150 - Upper Extremity Status Right Upper Extremity Comment: WFLS Left Upper Extremity Comment: WFLs - Pain Alleviating Techniques: Medication - Insight/Carryover Insight/Carryover: Good - Patient/Family Education Comment: weight bearing precautions, safety, d/c planning - Assessment/Plan Assessment: Pt is actively participating in PT tx sessions focusing on BLE strengthening exercises, balance and endurance activities, and functional mobility training. Pt performed bed mobility CGA, transfers with RW and S, and gait with close S. Pt requires min A to negotiate stairs with min A using bumping technique.Therapist discussed carry up via ambulance to enter/exit home. Pt will continue to benefit from skilled PT interventions to address deficits, reduce fall risk, and maximize functional independence. - Goals Timeframe: 2 weeks Goals: Pt will ambulate 150 ft mod I with RW, TTWB LLE. Pt will negotiate 6 steps with B handrails and CGA. Pt will perform all functional transfers mod I with RW. Pt will perform bed mobility mod I - Provider Therapist: Miriam Nguyen, OTR/L Speech Therapy - Plan Assessment: Pt is actively participating in PT tx sessions focusing on BLE strengthening exercises, balance and endurance activities, and functional mobility training. Pt performed bed mobility CGA, transfers with RW and S, and gait with close S. Pt requires min A to negotiate stairs with min A using bumping technique.Therapist discussed carry up via ambulance to enter/exit home. Pt will continue to benefit from skilled PT interventions to address deficits, reduce fall risk, and maximize functional independence. Recreational Therapy - Socialization Level of Socialization: Initiates/interacts freely with care givers and peer - Assessment Assessment/Plan: Pt is actively participating in PT tx sessions focusing on BLE strengthening exercises, balance and endurance activities, and functional mobility training. Pt performed bed mobility CGA, transfers with RW and S, and gait with close S. Pt requires min A to negotiate stairs with min A using bumping technique.Therapist discussed carry up via ambulance to enter/exit home. Pt will continue to benefit from skilled PT interventions to address deficits, reduce fall risk, and maximize functional independence. - Provider Therapist: Carisa Sykes Nutrition - Current Diet Current Diet/ Supplement/ Feedings: Moderate consistent CHO heart healthy diet - Appetite Percent Meal Consumed: 75-100% - Assessment/Goals/Time Frame Assessment/Goals/Time Frame: Pt at high nutritional risk. goals: 1. Pt to consume 75-100% of meals(met, continue). 2. Blood glucoses to be between 70- 180 mg/dl(HgbA1C to trend downward over next few months)(not met, continue). Follow-up due on 01/21/2018 - Provider Provider: Marbella Lord RD Case Management - Psychosocial Assessment Support Systems: Santino Cerrato (sibling)- [phone]. Harmeet Cerrato (son) - [phone] Psychological Interventions/Needs: Patient is alert and oriented x3 and able to verbalize needs. Patient is pleasant and motivated for therapy, less fearful of falling Discharge Concerns: Patient is currently TTWB to LLE, patient with over a flight of stairs to negotiate at home, may require carry up Patient/Family Meeting: CM met with patient and rehab team. Intervention/Goal/Outcome:: 1. Goal: Intermittent Supervision. 2. Plan: Home with [facility]- [facility] Care referral. 3. DME needs- RW, commode ordered, patient to purchase tub transfer bench privately and refusing hip kit. 5. f/u appts. 6. Tentative discharge date: 01/21, CM to arrange for [facility] for discharge with carry up. 7. continued emotional support - Discharge Plan Discharge Plan: Home with services Home Services: [facility] - Provider Provider: WOO Eaton, ENVIRONMENTAL ENGINEER License Number: [id number] Rehabilitation Plan - Treatment Plan Treatment Plan: Physical Therapy, Occupational Therapy, Dietary, Patient/Family Education - Recommendation Recommendation: Physical Therapy, Occupational Therapy, Dietary, Patient/Family Education - Discharge Plan Discharge to: Home (covering for Dr Duong plan for [facility])
[2018-01-17] MEDS: Insulin Detemir 100 Units/ml Inj SC SCH (21:10)
[2018-01-18] MEDS: Enoxaparin 40 mg Syringe SC SCH (08:10)
[2018-01-18] MEDS: Lidocaine 5% Patch TD SCH ×2 (08:11→08:12)
[2018-01-18] MEDS: Pantoprazole 40 mg EC Tab PO SCH (08:13)
[2018-01-18] MEDS: JARDIANCE 25 MG PO SCH (08:37)
--- NOTE | 2018-01-18 08:55 | CP.PCM.PN ---
Subjective - Date & Time of Evaluation Date of Evaluation: 01/18/18 Time of Evaluation: 07:30 - Subjective Subjective: Patient seen and examined at bedside comfortable. Pain well controlled. Reports discharge to home scheduled for this weekend. No other complaints noted. Objective - Vital Signs/Intake and Output Vital Signs (last 24 hours): Temp Pulse Resp BP Pulse Ox 97.0 F L 85 22 107/48 L 100 01/18/18 08:14 01/18/18 08:14 01/18/18 08:14 01/18/18 08:14 01/18/18 08:14 - Medications Medications: Current Medications Atorvastatin Calcium (Lipitor) 10 mg PO HS [facility] Last Admin: 01/17/18 21:10 Dose: 10 mg Docusate Sodium (Colace) 100 mg PO TID [facility] Last Admin: 01/18/18 08:11 Dose: Not Given Enoxaparin Sodium (Lovenox) 40 mg SC DAILY [facility] PRN Reason: Protocol Last Admin: 01/18/18 08:10 Dose: 40 mg Home Med (Patient's Own Medication) 1 unit PO DAILY [facility] Last Admin: 01/18/18 08:37 Dose: 1 unit Hydrocortisone (Cortizone 0.5% Cream) 1 applic TOP DAILY [facility] Last Admin: 01/18/18 08:11 Dose: 1 applic Insulin Detemir (Levemir) 18 units SC HS [facility] Last Admin: 01/17/18 21:10 Dose: 18 units Lidocaine (Lidoderm) 1 ea TD DAILY [facility] Last Admin: 01/18/18 08:11 Dose: 1 ea Lidocaine (Lidoderm) 1 ea TD DAILY [facility] Last Admin: 01/18/18 08:12 Dose: 1 ea Losartan Potassium (Cozaar) 25 mg PO DAILY [facility] Last Admin: 01/18/18 08:10 Dose: 25 mg Magnesium Hydroxide (Milk Of Magnesia) 30 ml PO DAILY PRN PRN Reason: Constipation Metformin HCl (Glucophage) 1,000 mg PO BIDWM [facility] Last Admin: 01/18/18 08:10 Dose: 1,000 mg Nicotine (Nicoderm Cq) 1 patch TD DAILY [facility] Last Admin: 01/18/18 08:37 Dose: 1 patch Ondansetron HCl (Zofran Tab) 4 mg PO Q6 PRN PRN Reason: Nausea/Vomiting Last Admin: 01/10/18 16:59 Dose: 4 mg Oxycodone HCl (Oxycodone Immediate Release Tab) 5 mg PO Q6 PRN PRN Reason: pain 4-11/15 Last Admin: 01/17/18 21:12 Dose: 5 mg Oxycodone HCl (Oxycodone Immediate Release Tab) 10 mg PO Q6 PRN PRN Reason: 8-02/15 Last Admin: 01/11/18 14:45 Dose: 10 mg Pantoprazole Sodium (Protonix Ec Tab) 40 mg PO DAILY [facility] Last Admin: 01/18/18 08:13 Dose: 40 mg Sitagliptin Phosphate (Januvia) 100 mg PO DAILY [facility] Last Admin: 01/18/18 08:10 Dose: 100 mg - Labs Labs: 01/17/18 05:30 01/17/18 05:30 - Extremities Exam Additional comments: L hip: no swelling, no ecchymosis, no lesions no tenderness lateral hip and groin sensation intact SP/DP/TN motor intact EHL/FHL/TA/G pedal pulses intact comps soft NT Assessment and Plan (1) Closed fracture of left inferior pubic ramus Status: Acute (2) Closed left acetabular fracture Assessment & Plan: -conservative management -PT/OT TTWB LLE -DVT ppx -orthopedically stable -above d/w Dr. Mejia in agreement Status: Acute
--- NOTE | 2018-01-18 11:31 | CP.PCM.PN ---
Subjective - Date & Time of Evaluation Date of Evaluation: 01/17/18 Time of Evaluation: 20:00 - Subjective Subjective: no acute complaints Objective - Vital Signs/Intake and Output Vital Signs (last 24 hours): Temp Pulse Resp BP Pulse Ox 97.0 F L 85 22 107/48 L 100 01/18/18 08:14 01/18/18 08:14 01/18/18 08:14 01/18/18 08:14 01/18/18 08:14 - Medications Medications: Current Medications Atorvastatin Calcium (Lipitor) 10 mg PO HS [facility] Last Admin: 01/17/18 21:10 Dose: 10 mg Docusate Sodium (Colace) 100 mg PO TID [facility] Last Admin: 01/18/18 08:11 Dose: Not Given Enalapril Maleate (Vasotec) 2.5 mg PO DAILY [facility] Enoxaparin Sodium (Lovenox) 40 mg SC DAILY [facility] PRN Reason: Protocol Last Admin: 01/18/18 08:10 Dose: 40 mg Home Med (Patient's Own Medication) 1 unit PO DAILY [facility] Last Admin: 01/18/18 08:37 Dose: 1 unit Hydrocortisone (Cortizone 0.5% Cream) 1 applic TOP DAILY [facility] Last Admin: 01/18/18 08:11 Dose: 1 applic Insulin Detemir (Levemir) 18 units SC HS [facility] Last Admin: 01/17/18 21:10 Dose: 18 units Lidocaine (Lidoderm) 1 ea TD DAILY [facility] Last Admin: 01/18/18 08:11 Dose: 1 ea Lidocaine (Lidoderm) 1 ea TD DAILY [facility] Last Admin: 01/18/18 08:12 Dose: 1 ea Magnesium Hydroxide (Milk Of Magnesia) 30 ml PO DAILY PRN PRN Reason: Constipation Metformin HCl (Glucophage) 1,000 mg PO BIDWM [facility] Last Admin: 01/18/18 08:10 Dose: 1,000 mg Nicotine (Nicoderm Cq) 1 patch TD DAILY [facility] Last Admin: 01/18/18 08:37 Dose: 1 patch Ondansetron HCl (Zofran Tab) 4 mg PO Q6 PRN PRN Reason: Nausea/Vomiting Last Admin: 01/10/18 16:59 Dose: 4 mg Oxycodone HCl (Oxycodone Immediate Release Tab) 5 mg PO Q6 PRN PRN Reason: pain 4-7/10 Last Admin: 01/17/18 21:12 Dose: 5 mg Oxycodone HCl (Oxycodone Immediate Release Tab) 10 mg PO Q6 PRN PRN Reason: Last Admin: 01/11/18 14:45 Dose: 10 mg Pantoprazole Sodium (Protonix Ec Tab) 40 mg PO DAILY [facility] Last Admin: 01/18/18 08:13 Dose: 40 mg Sitagliptin Phosphate (Januvia) 100 mg PO DAILY [facility] Last Admin: 01/18/18 08:10 Dose: 100 mg - Labs Labs: 01/17/18 05:30 01/17/18 05:30 - Head Exam Head Exam: ATRAUMATIC, NORMAL INSPECTION, NORMOCEPHALIC - Eye Exam Eye Exam: EOMI, Normal appearance, PERRL Pupil Exam: NORMAL ACCOMODATION - ENT Exam ENT Exam: Mucous Membranes Moist, Normal Exam - Neck Exam Neck Exam: Normal Inspection - Respiratory Exam Respiratory Exam: Clear to Ausculation Bilateral, NORMAL BREATHING PATTERN - Cardiovascular Exam Cardiovascular Exam: REGULAR RHYTHM - GI/Abdominal Exam GI & Abdominal Exam: Soft, Normal Bowel Sounds - Rectal Exam Rectal Exam: NORMAL INSPECTION - Exam External exam: NORMAL EXTERNAL EXAM - Extremities Exam Extremities Exam: Full ROM, Normal Capillary Refill, Normal Inspection - Back Exam Back Exam: NORMAL INSPECTION - Neurological Exam Neurological Exam: Alert, Awake Neuro motor strength exam: Left Upper Extremity: 3, Right Upper Extremity: 3, Left Lower Extremity: 3, Right Lower Extremity: 3 - Psychiatric Exam Psychiatric exam: Normal Affect, Normal Mood - Skin Skin Exam: Dry, Intact Assessment and Plan (1) Closed fracture of left inferior pubic ramus Status: Acute (2) Closed left acetabular fracture Status: Acute (3) DVT prophylaxis Status: Acute (4) Dehydration Status: Acute (5) Hip fracture, left Status: Acute (6) Pneumonia Status: Acute (7) Pubic ramus fracture Status: Acute (8) UTI (urinary tract infection) Status: Acute
--- NOTE | 2018-01-18 11:39 | CP.PCM.PN ---
Subjective - Date & Time of Evaluation Date of Evaluation: 01/14/18 Time of Evaluation: 12:00 - Subjective Subjective: no acute complaints Objective - Vital Signs/Intake and Output Vital Signs (last 24 hours): Temp Pulse Resp BP Pulse Ox 97.0 F L 85 22 107/48 L 100 01/18/18 08:14 01/18/18 08:14 01/18/18 08:14 01/18/18 08:14 01/18/18 08:14 - Medications Medications: Current Medications Atorvastatin Calcium (Lipitor) 10 mg PO HS [facility] Last Admin: 01/17/18 21:10 Dose: 10 mg Docusate Sodium (Colace) 100 mg PO TID [facility] Last Admin: 01/18/18 08:11 Dose: Not Given Enalapril Maleate (Vasotec) 2.5 mg PO DAILY [facility] Enoxaparin Sodium (Lovenox) 40 mg SC DAILY [facility] PRN Reason: Protocol Last Admin: 01/18/18 08:10 Dose: 40 mg Home Med (Patient's Own Medication) 1 unit PO DAILY [facility] Last Admin: 01/18/18 08:37 Dose: 1 unit Hydrocortisone (Cortizone 0.5% Cream) 1 applic TOP DAILY [facility] Last Admin: 01/18/18 08:11 Dose: 1 applic Insulin Detemir (Levemir) 18 units SC HS [facility] Last Admin: 01/17/18 21:10 Dose: 18 units Lidocaine (Lidoderm) 1 ea TD DAILY [facility] Last Admin: 01/18/18 08:11 Dose: 1 ea Lidocaine (Lidoderm) 1 ea TD DAILY [facility] Last Admin: 01/18/18 08:12 Dose: 1 ea Magnesium Hydroxide (Milk Of Magnesia) 30 ml PO DAILY PRN PRN Reason: Constipation Metformin HCl (Glucophage) 1,000 mg PO BIDWM [facility] Last Admin: 01/18/18 08:10 Dose: 1,000 mg Nicotine (Nicoderm Cq) 1 patch TD DAILY [facility] Last Admin: 01/18/18 08:37 Dose: 1 patch Ondansetron HCl (Zofran Tab) 4 mg PO Q6 PRN PRN Reason: Nausea/Vomiting Last Admin: 01/10/18 16:59 Dose: 4 mg Oxycodone HCl (Oxycodone Immediate Release Tab) 5 mg PO Q6 PRN PRN Reason: pain 4-7/10 Last Admin: 01/17/18 21:12 Dose: 5 mg Oxycodone HCl (Oxycodone Immediate Release Tab) 10 mg PO Q6 PRN PRN Reason: Last Admin: 01/11/18 14:45 Dose: 10 mg Pantoprazole Sodium (Protonix Ec Tab) 40 mg PO DAILY [facility] Last Admin: 01/18/18 08:13 Dose: 40 mg Sitagliptin Phosphate (Januvia) 100 mg PO DAILY [facility] Last Admin: 01/18/18 08:10 Dose: 100 mg - Labs Labs: 01/17/18 05:30 01/17/18 05:30 - Head Exam Head Exam: ATRAUMATIC, NORMAL INSPECTION, NORMOCEPHALIC - Eye Exam Eye Exam: EOMI, Normal appearance, PERRL Pupil Exam: NORMAL ACCOMODATION - ENT Exam ENT Exam: Mucous Membranes Moist, Normal Exam - Neck Exam Neck Exam: Normal Inspection - Respiratory Exam Respiratory Exam: Clear to Ausculation Bilateral, NORMAL BREATHING PATTERN - Cardiovascular Exam Cardiovascular Exam: REGULAR RHYTHM - GI/Abdominal Exam GI & Abdominal Exam: Soft, Normal Bowel Sounds - Rectal Exam Rectal Exam: NORMAL INSPECTION - Exam External exam: NORMAL EXTERNAL EXAM - Extremities Exam Extremities Exam: Full ROM, Normal Capillary Refill - Back Exam Back Exam: NORMAL INSPECTION - Neurological Exam Neurological Exam: Alert, Awake Neuro motor strength exam: Left Upper Extremity: 3, Right Upper Extremity: 3, Left Lower Extremity: 3, Right Lower Extremity: 3 - Psychiatric Exam Psychiatric exam: Normal Affect, Normal Mood - Skin Skin Exam: Dry, Intact Assessment and Plan (1) Closed fracture of left inferior pubic ramus Assessment & Plan: covering for Dr ace pt ot rec therapy DC planning Status: Acute (2) Closed left acetabular fracture Status: Acute (3) DVT prophylaxis Status: Acute (4) Dehydration Status: Acute (5) Hip fracture, left Status: Acute (6) Pneumonia Status: Acute (7) Pubic ramus fracture Status: Acute (8) UTI (urinary tract infection) Status: Acute
[2018-01-18] MEDS: oxyCODONE 5 mg Immediate Release Tab PO PRN (16:47)
--- NOTE | 2018-01-18 17:19 | CP.PCM.PN ---
Subjective - Date & Time of Evaluation Date of Evaluation: 01/18/18 Time of Evaluation: 17:19 - Subjective Subjective: Patient seen in the room pain is controlled happy with 01/21/18 d/c date continued improvement in therapies Objective - Vital Signs/Intake and Output Vital Signs (last 24 hours): Temp Pulse Resp BP Pulse Ox 97.0 F L 85 22 107/48 L 100 01/18/18 08:14 01/18/18 08:14 01/18/18 08:14 01/18/18 08:14 01/18/18 08:14 - Medications Medications: Current Medications Atorvastatin Calcium (Lipitor) 10 mg PO HS [facility] Last Admin: 01/17/18 21:10 Dose: 10 mg Docusate Sodium (Colace) 100 mg PO TID [facility] Last Admin: 01/18/18 16:42 Dose: Not Given Enalapril Maleate (Vasotec) 2.5 mg PO DAILY [facility] Enoxaparin Sodium (Lovenox) 40 mg SC DAILY [facility] PRN Reason: Protocol Last Admin: 01/18/18 08:10 Dose: 40 mg Home Med (Patient's Own Medication) 1 unit PO DAILY [facility] Last Admin: 01/18/18 08:37 Dose: 1 unit Hydrocortisone (Cortizone 0.5% Cream) 1 applic TOP DAILY [facility] Last Admin: 01/18/18 08:11 Dose: 1 applic Insulin Detemir (Levemir) 18 units SC HS [facility] Last Admin: 01/17/18 21:10 Dose: 18 units Lidocaine (Lidoderm) 1 ea TD DAILY [facility] Last Admin: 01/18/18 08:11 Dose: 1 ea Lidocaine (Lidoderm) 1 ea TD DAILY [facility] Last Admin: 01/18/18 08:12 Dose: 1 ea Magnesium Hydroxide (Milk Of Magnesia) 30 ml PO DAILY PRN PRN Reason: Constipation Metformin HCl (Glucophage) 1,000 mg PO BIDWM [facility] Last Admin: 01/18/18 16:49 Dose: 1,000 mg Nicotine (Nicoderm Cq) 1 patch TD DAILY [facility] Last Admin: 01/18/18 08:37 Dose: 1 patch Ondansetron HCl (Zofran Tab) 4 mg PO Q6 PRN PRN Reason: Nausea/Vomiting Last Admin: 01/10/18 16:59 Dose: 4 mg Oxycodone HCl (Oxycodone Immediate Release Tab) 5 mg PO Q6 PRN PRN Reason: pain -11/15 Last Admin: 01/18/18 16:47 Dose: 5 mg Oxycodone HCl (Oxycodone Immediate Release Tab) 10 mg PO Q6 PRN PRN Reason: -02/15 Last Admin: 01/11/18 14:45 Dose: 10 mg Pantoprazole Sodium (Protonix Ec Tab) 40 mg PO DAILY [facility] Last Admin: 01/18/18 08:13 Dose: 40 mg Sitagliptin Phosphate (Januvia) 100 mg PO DAILY [facility] Last Admin: 01/18/18 08:10 Dose: 100 mg - Labs Labs: 01/17/18 05:30 01/17/18 05:30
[2018-01-18] MEDS: Insulin Detemir 100 Units/ml Inj SC SCH (21:13)
[2018-01-19] MEDS: oxyCODONE 5 mg Immediate Release Tab PO PRN ×3 (00:22→22:28)
[2018-01-19] MEDS: Lidocaine 5% Patch TD SCH ×2 (08:39)
[2018-01-19] MEDS: Enoxaparin 40 mg Syringe SC SCH (08:40)
[2018-01-19] MEDS: JARDIANCE 25 MG PO SCH (08:40)
[2018-01-19] MEDS: Pantoprazole 40 mg EC Tab PO SCH (08:41)
--- NOTE | 2018-01-19 14:09 | CP.PCM.CON ---
History of Present Illness - History of Present Illness History of Present Illness: Consult note for Dr. Dowling: 67yo seen and evaluated at bedside in rehab for elongated and painful nails. Patient is AAOx3 and NAD. States her nails are long and painful and give her difficulty when walking. Denies N/V/F/C/SOB today and has no other pedal complaints. PMHx DM, HTN, HLD, hip fracture PSHx C section All Squid Past Patient History - Past Medical History & Family History Past Medical History?: Yes - Past Social History Smoking Status: Former Smoker - CARDIAC Hx Hypertension: Yes - PULMONARY Hx Respiratory Disorders: Yes Hx Pneumonia: Yes - NEUROLOGICAL Hx Neurological Disorder: No - HEENT Hx HEENT Problems: Yes Other/Comment: WEARS GLASSES - RENAL Hx Chronic Kidney Disease: No - ENDOCRINE/METABOLIC Hx Diabetes Mellitus Type 2: Yes - HEMATOLOGICAL/ONCOLOGICAL Hx Blood Disorders: No Hx AIDS: No Hx Human Immunodeficiency Virus (HIV): No - INTEGUMENTARY Hx Dermatological Problems: No - MUSCULOSKELETAL/RHEUMATOLOGICAL Hx Musculoskeletal Disorders: No Hx Falls: Yes - GASTROINTESTINAL Hx Gastrointestinal Disorders: No - GENITOURINARY/GYNECOLOGICAL Hx Genitourinary Disorders: No - PSYCHIATRIC Hx Psychophysiologic Disorder: No Hx Substance Use: No - SURGICAL HISTORY Hx Surgeries: Yes Hx Section: Yes - ANESTHESIA Hx Anesthesia: Yes Hx Anesthesia Reactions: No Hx Malignant Hyperthermia: No Meds Allergies/Adverse Reactions: Allergies Allergy/AdvReac Type Severity Reaction Status Date / Time squid Allergy RASH Verified 01/06/18 16:49 - Medications Medications: Current Medications Atorvastatin Calcium (Lipitor) 10 mg PO HS [facility] Last Admin: 01/18/18 21:13 Dose: 10 mg Docusate Sodium (Colace) 100 mg PO TID [facility] Last Admin: 01/19/18 12:26 Dose: Not Given Enalapril Maleate (Vasotec) 2.5 mg PO DAILY [facility] Last Admin: 01/19/18 08:41 Dose: 2.5 mg Enoxaparin Sodium (Lovenox) 40 mg SC DAILY [facility] PRN Reason: Protocol Last Admin: 01/19/18 08:40 Dose: 40 mg Home Med (Patient's Own Medication) 1 unit PO DAILY [facility] Last Admin: 01/19/18 08:40 Dose: 1 unit Hydrocortisone (Cortizone 0.5% Cream) 1 applic TOP DAILY [facility] Last Admin: 01/19/18 08:40 Dose: 1 applic Insulin Detemir (Levemir) 18 units SC HS [facility] Last Admin: 01/18/18 21:13 Dose: 18 units Lidocaine (Lidoderm) 1 ea TD DAILY [facility] Last Admin: 01/19/18 08:39 Dose: 1 ea Lidocaine (Lidoderm) 1 ea TD DAILY [facility] Last Admin: 01/19/18 08:39 Dose: 1 ea Magnesium Hydroxide (Milk Of Magnesia) 30 ml PO DAILY PRN PRN Reason: Constipation Metformin HCl (Glucophage) 1,000 mg PO BIDWM [facility] Last Admin: 01/19/18 08:41 Dose: 1,000 mg Nicotine (Nicoderm Cq) 1 patch TD DAILY [facility] Last Admin: 01/19/18 08:37 Dose: 1 patch Ondansetron HCl (Zofran Tab) 4 mg PO Q6 PRN PRN Reason: Nausea/Vomiting Last Admin: 01/10/18 16:59 Dose: 4 mg Oxycodone HCl (Oxycodone Immediate Release Tab) 5 mg PO Q6 PRN PRN Reason: Other Last Admin: 01/19/18 00:22 Dose: 5 mg Pantoprazole Sodium (Protonix Ec Tab) 40 mg PO DAILY [facility] Last Admin: 01/19/18 08:41 Dose: 40 mg Sitagliptin Phosphate (Januvia) 100 mg PO DAILY [facility] Last Admin: 01/19/18 08:40 Dose: 100 mg Physical Exam - Constitutional Appears: Well, Non-toxic, No Acute Distress - Extremities Exam Additional comments: Vasc: DP and PT pulses 1/4 b/l; temp gradient warm to cool from proximal to distal; cap refill <3 seconds to all digits; no edema present Derm: nails are dystrophic and elongated x10; skin temp and turgor are within normal limits; no lesions or clinical signs of infection present Ortho: no gross pathology noted; MMT 5/5 b/l Neuro: gross and protective sensation intact b/l - Neurological Exam Neurological exam: Alert, Oriented x3 - Psychiatric Exam Psychiatric exam: Normal Affect, Normal Mood Results - Vital Signs Recent Vital Signs: Last Vital Signs Temp 97.7 F 01/19/18 07:35 Pulse 79 01/19/18 07:35 Resp 18 01/19/18 07:35 BP 114/52 L 01/19/18 07:35 Pulse Ox 97 01/19/18 07:35 - Labs Result Diagrams: 01/17/18 05:30 01/17/18 05:30 Labs: Laboratory Results - last 24 hr 01/19/18 05:00 POC Glucose (mg/dL) 200 H Assessment & Plan - Assessment and Plan (Free Text) Assessment: 67 yo with PMHx of DM, HTN, HLD seen and evaluated in rehab for elongated and dystrophic nails Plan: Patient seen and evaluated Discussed in detail with Dr. Dowling Patients nails x10 sharply cut with a nail nipper without incident, patient tolerated procedure well Charts labs evaluated Podiatry to sign off, please reconsult as needed Thank you for the consult - Date & Time Date: 01/19/18 Time: 14:15
--- NOTE | 2018-01-19 16:01 | CP.PCM.PN ---
Subjective - Date & Time of Evaluation Date of Evaluation: 01/19/18 Time of Evaluation: 16:01 - Subjective Subjective: Patient seen and examined OOB to chair comfortable. C/o soreness at the L hip unchanged since yesterday which she attributes to stair training today. No new complaints. Objective - Vital Signs/Intake and Output Vital Signs (last 24 hours): Temp Pulse Resp BP Pulse Ox 97.7 F 79 18 114/52 L 97 01/19/18 07:35 01/19/18 07:35 01/19/18 07:35 01/19/18 07:35 01/19/18 07:35 - Medications Medications: Current Medications Atorvastatin Calcium (Lipitor) 10 mg PO HS [facility] Last Admin: 01/18/18 21:13 Dose: 10 mg Docusate Sodium (Colace) 100 mg PO TID [facility] Last Admin: 01/19/18 12:26 Dose: Not Given Enalapril Maleate (Vasotec) 2.5 mg PO DAILY [facility] Last Admin: 01/19/18 08:41 Dose: 2.5 mg Enoxaparin Sodium (Lovenox) 40 mg SC DAILY [facility] PRN Reason: Protocol Last Admin: 01/19/18 08:40 Dose: 40 mg Home Med (Patient's Own Medication) 1 unit PO DAILY [facility] Last Admin: 01/19/18 08:40 Dose: 1 unit Hydrocortisone (Cortizone 0.5% Cream) 1 applic TOP DAILY [facility] Last Admin: 01/19/18 08:40 Dose: 1 applic Insulin Detemir (Levemir) 18 units SC HS [facility] Last Admin: 01/18/18 21:13 Dose: 18 units Lidocaine (Lidoderm) 1 ea TD DAILY [facility] Last Admin: 01/19/18 08:39 Dose: 1 ea Lidocaine (Lidoderm) 1 ea TD DAILY [facility] Last Admin: 01/19/18 08:39 Dose: 1 ea Magnesium Hydroxide (Milk Of Magnesia) 30 ml PO DAILY PRN PRN Reason: Constipation Metformin HCl (Glucophage) 1,000 mg PO BIDWM [facility] Last Admin: 01/19/18 08:41 Dose: 1,000 mg Nicotine (Nicoderm Cq) 1 patch TD DAILY [facility] Last Admin: 01/19/18 08:37 Dose: 1 patch Ondansetron HCl (Zofran Tab) 4 mg PO Q6 PRN PRN Reason: Nausea/Vomiting Last Admin: 01/10/18 16:59 Dose: 4 mg Oxycodone HCl (Oxycodone Immediate Release Tab) 5 mg PO Q6 PRN PRN Reason: Other Last Admin: 01/19/18 14:06 Dose: 5 mg Pantoprazole Sodium (Protonix Ec Tab) 40 mg PO DAILY [facility] Last Admin: 01/19/18 08:41 Dose: 40 mg Sitagliptin Phosphate (Januvia) 100 mg PO DAILY [facility] Last Admin: 01/19/18 08:40 Dose: 100 mg - Labs Labs: 01/17/18 05:30 01/17/18 05:30 - Extremities Exam Additional comments: L hip: no swelling, no ecchymosis, no lesions no tenderness lateral hip and groin sensation intact SP/DP/TN motor intact EHL/FHL/TA/G pedal pulses intact comps soft NT b/l Assessment and Plan (1) Closed fracture of left inferior pubic ramus Status: Acute (2) Closed left acetabular fracture Assessment & Plan: -conservative management -PT/OT TTWB LLE -DVT ppx -orthopedically stable -above d/w Dr. Mejia in agreement Status: Acute
--- NOTE | 2018-01-19 17:16 | CP.PCM.PN ---
Subjective - Date & Time of Evaluation Date of Evaluation: 01/17/18 Time of Evaluation: 11:00 - Subjective Subjective: Patient continues to do well with PT Has minimal pain on the fx site Noted persistently elevated FBS Has no fever. Advised about starting SGLT 2 She was previously on jardiance. Objective - Vital Signs/Intake and Output Vital Signs (last 24 hours): Temp Pulse Resp BP Pulse Ox 97.7 F 79 18 114/52 L 97 01/19/18 07:35 01/19/18 07:35 01/19/18 07:35 01/19/18 07:35 01/19/18 07:35 - Medications Medications: Current Medications Atorvastatin Calcium (Lipitor) 10 mg PO HS [facility] Last Admin: 01/18/18 21:13 Dose: 10 mg Docusate Sodium (Colace) 100 mg PO TID [facility] Last Admin: 01/19/18 16:53 Dose: Not Given Enalapril Maleate (Vasotec) 2.5 mg PO DAILY [facility] Last Admin: 01/19/18 08:41 Dose: 2.5 mg Enoxaparin Sodium (Lovenox) 40 mg SC DAILY [facility] PRN Reason: Protocol Last Admin: 01/19/18 08:40 Dose: 40 mg Home Med (Patient's Own Medication) 1 unit PO DAILY [facility] Last Admin: 01/19/18 08:40 Dose: 1 unit Hydrocortisone (Cortizone 0.5% Cream) 1 applic TOP DAILY [facility] Last Admin: 01/19/18 08:40 Dose: 1 applic Insulin Detemir (Levemir) 18 units SC HS [facility] Last Admin: 01/18/18 21:13 Dose: 18 units Lidocaine (Lidoderm) 1 ea TD DAILY [facility] Last Admin: 01/19/18 08:39 Dose: 1 ea Lidocaine (Lidoderm) 1 ea TD DAILY [facility] Last Admin: 01/19/18 08:39 Dose: 1 ea Magnesium Hydroxide (Milk Of Magnesia) 30 ml PO DAILY PRN PRN Reason: Constipation Metformin HCl (Glucophage) 1,000 mg PO BIDWM [facility] Last Admin: 01/19/18 16:54 Dose: 1,000 mg Nicotine (Nicoderm Cq) 1 patch TD DAILY [facility] Last Admin: 01/19/18 08:37 Dose: 1 patch Ondansetron HCl (Zofran Tab) 4 mg PO Q6 PRN PRN Reason: Nausea/Vomiting Last Admin: 01/10/18 16:59 Dose: 4 mg Oxycodone HCl (Oxycodone Immediate Release Tab) 5 mg PO Q6 PRN PRN Reason: Other Last Admin: 01/19/18 14:06 Dose: 5 mg Pantoprazole Sodium (Protonix Ec Tab) 40 mg PO DAILY [facility] Last Admin: 01/19/18 08:41 Dose: 40 mg Sitagliptin Phosphate (Januvia) 100 mg PO DAILY [facility] Last Admin: 01/19/18 08:40 Dose: 100 mg - Labs Labs: 01/17/18 05:30 01/17/18 05:30 - Head Exam Head Exam: NORMAL INSPECTION - Eye Exam Eye Exam: Normal appearance - ENT Exam ENT Exam: Mucous Membranes Moist - Respiratory Exam Respiratory Exam: Clear to Ausculation Bilateral - Cardiovascular Exam Cardiovascular Exam: REGULAR RHYTHM - GI/Abdominal Exam GI & Abdominal Exam: Normal Bowel Sounds - Neurological Exam Neurological Exam: CN II-XII Intact Assessment and Plan (1) Closed left acetabular fracture Status: Acute (2) Hyperlipidemia Status: Chronic (3) Hypertension Status: Chronic (4) Uncontrolled diabetes mellitus Status: Chronic - Assessment and Plan (Free Text) Plan: Cont meds Cont Levemir at night will need jardiance Rx given to patient cont PT painmeds.
--- NOTE | 2018-01-19 17:26 | CP.PCM.PN ---
Subjective - Date & Time of Evaluation Date of Evaluation: 01/18/18 Time of Evaluation: 11:00 - Subjective Subjective: Patient continues to do well Doing well with PT Has minimal pain Accuchecks are still elevated. Objective - Vital Signs/Intake and Output Vital Signs (last 24 hours): Temp Pulse Resp BP Pulse Ox 97.7 F 79 18 114/52 L 97 01/19/18 07:35 01/19/18 07:35 01/19/18 07:35 01/19/18 07:35 01/19/18 07:35 - Medications Medications: Current Medications Atorvastatin Calcium (Lipitor) 10 mg PO HS [facility] Last Admin: 01/18/18 21:13 Dose: 10 mg Docusate Sodium (Colace) 100 mg PO TID [facility] Last Admin: 01/19/18 16:53 Dose: Not Given Enalapril Maleate (Vasotec) 2.5 mg PO DAILY [facility] Last Admin: 01/19/18 08:41 Dose: 2.5 mg Enoxaparin Sodium (Lovenox) 40 mg SC DAILY [facility] PRN Reason: Protocol Last Admin: 01/19/18 08:40 Dose: 40 mg Home Med (Patient's Own Medication) 1 unit PO DAILY [facility] Last Admin: 01/19/18 08:40 Dose: 1 unit Hydrocortisone (Cortizone 0.5% Cream) 1 applic TOP DAILY [facility] Last Admin: 01/19/18 08:40 Dose: 1 applic Insulin Detemir (Levemir) 18 units SC HS [facility] Last Admin: 01/18/18 21:13 Dose: 18 units Lidocaine (Lidoderm) 1 ea TD DAILY [facility] Last Admin: 01/19/18 08:39 Dose: 1 ea Lidocaine (Lidoderm) 1 ea TD DAILY [facility] Last Admin: 01/19/18 08:39 Dose: 1 ea Magnesium Hydroxide (Milk Of Magnesia) 30 ml PO DAILY PRN PRN Reason: Constipation Metformin HCl (Glucophage) 1,000 mg PO BIDWM [facility] Last Admin: 01/19/18 16:54 Dose: 1,000 mg Nicotine (Nicoderm Cq) 1 patch TD DAILY [facility] Last Admin: 01/19/18 08:37 Dose: 1 patch Ondansetron HCl (Zofran Tab) 4 mg PO Q6 PRN PRN Reason: Nausea/Vomiting Last Admin: 01/10/18 16:59 Dose: 4 mg Oxycodone HCl (Oxycodone Immediate Release Tab) 5 mg PO Q6 PRN PRN Reason: Other Last Admin: 01/19/18 14:06 Dose: 5 mg Pantoprazole Sodium (Protonix Ec Tab) 40 mg PO DAILY [facility] Last Admin: 01/19/18 08:41 Dose: 40 mg Sitagliptin Phosphate (Januvia) 100 mg PO DAILY [facility] Last Admin: 01/19/18 08:40 Dose: 100 mg - Labs Labs: 01/17/18 05:30 01/17/18 05:30 - Head Exam Head Exam: NORMAL INSPECTION - Eye Exam Eye Exam: Normal appearance - ENT Exam ENT Exam: Mucous Membranes Moist - Respiratory Exam Respiratory Exam: Clear to Ausculation Bilateral - Cardiovascular Exam Cardiovascular Exam: REGULAR RHYTHM - GI/Abdominal Exam GI & Abdominal Exam: Normal Bowel Sounds - Neurological Exam Neurological Exam: Awake Assessment and Plan (1) Closed left acetabular fracture Status: Acute (2) Hyperlipidemia Status: Chronic (3) Hypertension Status: Chronic (4) Uncontrolled diabetes mellitus Status: Chronic - Assessment and Plan (Free Text) Plan: Cont meds Cont tx Cont PT pain meds start jardiance as soon as its available.
--- NOTE | 2018-01-19 17:32 | CP.PCM.PN ---
Subjective - Date & Time of Evaluation Date of Evaluation: 01/19/18 Time of Evaluation: 11:00 - Subjective Subjective: patient remains stable Noted FBS to be 200 Has no side effects with jardiance No other complaints Objective - Vital Signs/Intake and Output Vital Signs (last 24 hours): Temp Pulse Resp BP Pulse Ox 97.7 F 79 18 114/52 L 97 01/19/18 07:35 01/19/18 07:35 01/19/18 07:35 01/19/18 07:35 01/19/18 07:35 - Medications Medications: Current Medications Atorvastatin Calcium (Lipitor) 10 mg PO HS [facility] Last Admin: 01/18/18 21:13 Dose: 10 mg Docusate Sodium (Colace) 100 mg PO TID [facility] Last Admin: 01/19/18 16:53 Dose: Not Given Enalapril Maleate (Vasotec) 2.5 mg PO DAILY [facility] Last Admin: 01/19/18 08:41 Dose: 2.5 mg Enoxaparin Sodium (Lovenox) 40 mg SC DAILY [facility] PRN Reason: Protocol Last Admin: 01/19/18 08:40 Dose: 40 mg Home Med (Patient's Own Medication) 1 unit PO DAILY [facility] Last Admin: 01/19/18 08:40 Dose: 1 unit Hydrocortisone (Cortizone 0.5% Cream) 1 applic TOP DAILY [facility] Last Admin: 01/19/18 08:40 Dose: 1 applic Insulin Detemir (Levemir) 18 units SC HS [facility] Last Admin: 01/18/18 21:13 Dose: 18 units Lidocaine (Lidoderm) 1 ea TD DAILY [facility] Last Admin: 01/19/18 08:39 Dose: 1 ea Lidocaine (Lidoderm) 1 ea TD DAILY [facility] Last Admin: 01/19/18 08:39 Dose: 1 ea Magnesium Hydroxide (Milk Of Magnesia) 30 ml PO DAILY PRN PRN Reason: Constipation Metformin HCl (Glucophage) 1,000 mg PO BIDWM [facility] Last Admin: 01/19/18 16:54 Dose: 1,000 mg Nicotine (Nicoderm Cq) 1 patch TD DAILY [facility] Last Admin: 01/19/18 08:37 Dose: 1 patch Ondansetron HCl (Zofran Tab) 4 mg PO Q6 PRN PRN Reason: Nausea/Vomiting Last Admin: 01/10/18 16:59 Dose: 4 mg Oxycodone HCl (Oxycodone Immediate Release Tab) 5 mg PO Q6 PRN PRN Reason: Other Last Admin: 01/19/18 14:06 Dose: 5 mg Pantoprazole Sodium (Protonix Ec Tab) 40 mg PO DAILY [facility] Last Admin: 01/19/18 08:41 Dose: 40 mg Sitagliptin Phosphate (Januvia) 100 mg PO DAILY [facility] Last Admin: 01/19/18 08:40 Dose: 100 mg - Labs Labs: 01/17/18 05:30 01/17/18 05:30 - Head Exam Head Exam: NORMAL INSPECTION - Eye Exam Eye Exam: Normal appearance - ENT Exam ENT Exam: Mucous Membranes Moist - Respiratory Exam Respiratory Exam: NORMAL BREATHING PATTERN - Cardiovascular Exam Cardiovascular Exam: REGULAR RHYTHM - GI/Abdominal Exam GI & Abdominal Exam: Normal Bowel Sounds - Neurological Exam Neurological Exam: Awake Assessment and Plan (1) Closed left acetabular fracture Status: Acute (2) Hyperlipidemia Status: Chronic (3) Hypertension Status: Chronic (4) Uncontrolled diabetes mellitus Status: Chronic - Assessment and Plan (Free Text) Plan: Cont meds Cont tx cont PT pain meds Discharge planning
[2018-01-19] MEDS: Insulin Detemir 100 Units/ml Inj SC SCH (22:18)
[2018-01-20 05:52] LABS: HEMOGLOBIN 12.1 g/dL (12.0-16.0); MEAN CELL VOLUME 93.4 fl (81.0-99.0); MEAN CORPUSCULAR HEMOGLOBIN 31.7 pg (27.0-31.0); RBC 3.82 Mil/uL (3.80-5.20); RED CELL DISTRIBUTION WIDTH 13.2 % (11.5-14.5); WHITE BLOOD COUNT 6.8 K/uL (4.8-10.8)
[2018-01-20 06:25] LABS: BLOOD UREA NITROGEN 19 mg/dl (7-17); CALCIUM 9.4 mg/dL (8.4-10.2); GFR NON-AFRICAN AMERICAN > 60
--- NOTE | 2018-01-20 07:41 | CP.PCM.PN ---
Subjective - Date & Time of Evaluation Date of Evaluation: 01/20/18 Time of Evaluation: 07:00 - Subjective Subjective: Patient seen and examined at bedside. Pain is mildly improved and controlled. No new complaints. Objective - Vital Signs/Intake and Output Vital Signs (last 24 hours): Temp Pulse Resp BP Pulse Ox 98.1 F 82 20 125/62 99 01/19/18 20:00 01/19/18 20:00 01/19/18 20:00 01/19/18 20:00 01/19/18 20:00 - Medications Medications: Current Medications Atorvastatin Calcium (Lipitor) 10 mg PO HS [facility] Last Admin: 01/19/18 22:17 Dose: 10 mg Docusate Sodium (Colace) 100 mg PO TID [facility] Last Admin: 01/19/18 16:53 Dose: Not Given Enalapril Maleate (Vasotec) 2.5 mg PO DAILY [facility] Last Admin: 01/19/18 08:41 Dose: 2.5 mg Enoxaparin Sodium (Lovenox) 40 mg SC DAILY [facility] PRN Reason: Protocol Last Admin: 01/19/18 08:40 Dose: 40 mg Home Med (Patient's Own Medication) 1 unit PO DAILY [facility] Last Admin: 01/19/18 08:40 Dose: 1 unit Hydrocortisone (Cortizone 0.5% Cream) 1 applic TOP DAILY [facility] Last Admin: 01/19/18 08:40 Dose: 1 applic Insulin Detemir (Levemir) 18 units SC HS [facility] Last Admin: 01/19/18 22:18 Dose: 18 units Lidocaine (Lidoderm) 1 ea TD DAILY [facility] Last Admin: 01/19/18 08:39 Dose: 1 ea Lidocaine (Lidoderm) 1 ea TD DAILY [facility] Last Admin: 01/19/18 08:39 Dose: 1 ea Magnesium Hydroxide (Milk Of Magnesia) 30 ml PO DAILY PRN PRN Reason: Constipation Metformin HCl (Glucophage) 1,000 mg PO BIDWM [facility] Last Admin: 01/19/18 16:54 Dose: 1,000 mg Nicotine (Nicoderm Cq) 1 patch TD DAILY [facility] Last Admin: 01/19/18 08:37 Dose: 1 patch Ondansetron HCl (Zofran Tab) 4 mg PO Q6 PRN PRN Reason: Nausea/Vomiting Last Admin: 01/10/18 16:59 Dose: 4 mg Oxycodone HCl (Oxycodone Immediate Release Tab) 5 mg PO Q6 PRN PRN Reason: Other Last Admin: 01/19/18 22:28 Dose: 5 mg Pantoprazole Sodium (Protonix Ec Tab) 40 mg PO DAILY [facility] Last Admin: 01/19/18 08:41 Dose: 40 mg Sitagliptin Phosphate (Januvia) 100 mg PO DAILY [facility] Last Admin: 01/19/18 08:40 Dose: 100 mg - Labs Labs: 01/20/18 05:15 01/20/18 05:15 - Extremities Exam Additional comments: L hip: no swelling, no ecchymosis, no lesions no tenderness lateral hip and groin sensation intact SP/DP/TN motor intact EHL/FHL/TA/G pedal pulses intact comps soft NT b/l Assessment and Plan (1) Closed fracture of left inferior pubic ramus Status: Acute (2) Closed left acetabular fracture Assessment & Plan: -conservative management -PT/OT TTWB LLE -DVT ppx -orthopedically stable for discharge tomorrow -f/u in office within 2 weeks, call for appt -above d/w Dr. Mejia in agreement Status: Acute
[2018-01-20] MEDS: Lidocaine 5% Patch TD SCH ×2 (08:14→08:15)
[2018-01-20] MEDS: Enoxaparin 40 mg Syringe SC SCH (08:15)
[2018-01-20] MEDS: JARDIANCE 25 MG PO SCH (08:16)
[2018-01-20] MEDS: Pantoprazole 40 mg EC Tab PO SCH (08:16)
[2018-01-20] MEDS: oxyCODONE 5 mg Immediate Release Tab PO PRN ×2 (14:56→22:17)
--- NOTE | 2018-01-20 17:58 | CP.PCM.PN ---
Subjective - Date & Time of Evaluation Date of Evaluation: 01/20/18 Time of Evaluation: 17:57 - Subjective Subjective: Patient has done quite well set for d/c home tomorrow pain is well controlled minimal pain medications taken will get home services and likely transition to outpatient care Objective - Vital Signs/Intake and Output Vital Signs (last 24 hours): Temp Pulse Resp BP Pulse Ox 97.9 F 80 20 108/49 L 97 01/20/18 08:53 01/20/18 08:53 01/20/18 08:53 01/20/18 08:53 01/20/18 08:53 - Medications Medications: Current Medications Atorvastatin Calcium (Lipitor) 10 mg PO HS [facility] Last Admin: 01/19/18 22:17 Dose: 10 mg Docusate Sodium (Colace) 100 mg PO TID [facility] Last Admin: 01/20/18 16:52 Dose: Not Given Enalapril Maleate (Vasotec) 2.5 mg PO DAILY [facility] Last Admin: 01/20/18 08:16 Dose: 2.5 mg Enoxaparin Sodium (Lovenox) 40 mg SC DAILY [facility] PRN Reason: Protocol Last Admin: 01/20/18 08:15 Dose: 40 mg Home Med (Patient's Own Medication) 1 unit PO DAILY [facility] Last Admin: 01/20/18 08:16 Dose: 1 unit Hydrocortisone (Cortizone 0.5% Cream) 1 applic TOP DAILY [facility] Last Admin: 01/20/18 08:15 Dose: 1 applic Insulin Detemir (Levemir) 18 units SC HS [facility] Last Admin: 01/19/18 22:18 Dose: 18 units Lidocaine (Lidoderm) 1 ea TD DAILY [facility] Last Admin: 01/20/18 08:14 Dose: 1 ea Lidocaine (Lidoderm) 1 ea TD DAILY [facility] Last Admin: 01/20/18 08:15 Dose: 1 ea Magnesium Hydroxide (Milk Of Magnesia) 30 ml PO DAILY PRN PRN Reason: Constipation Metformin HCl (Glucophage) 1,000 mg PO BIDWM [facility] Last Admin: 01/20/18 16:51 Dose: 1,000 mg Nicotine (Nicoderm Cq) 1 patch TD DAILY [facility] Last Admin: 01/20/18 08:14 Dose: 1 patch Ondansetron HCl (Zofran Tab) 4 mg PO Q6 PRN PRN Reason: Nausea/Vomiting Last Admin: 01/10/18 16:59 Dose: 4 mg Oxycodone HCl (Oxycodone Immediate Release Tab) 5 mg PO Q6 PRN PRN Reason: Other Last Admin: 01/20/18 14:56 Dose: 5 mg Pantoprazole Sodium (Protonix Ec Tab) 40 mg PO DAILY [facility] Last Admin: 01/20/18 08:16 Dose: 40 mg Sitagliptin Phosphate (Januvia) 100 mg PO DAILY [facility] Last Admin: 01/20/18 08:16 Dose: 100 mg - Labs Labs: 01/20/18 05:15 01/20/18 05:15
[2018-01-20] MEDS: Insulin Detemir 100 Units/ml Inj SC SCH (22:08)
[2018-01-21 07:52] VITALS: BP 116/59; PULSE 79; RESP 18; TEMP 98.2; O2SAT 95
[2018-01-21] MEDS: Lidocaine 5% Patch TD SCH ×2 (08:38)
[2018-01-21] MEDS: JARDIANCE 25 MG PO SCH (08:39)
[2018-01-21] MEDS: Enoxaparin 40 mg Syringe SC SCH (08:39)
[2018-01-21] MEDS: Pantoprazole 40 mg EC Tab PO SCH (08:40)
== END 2018-01-21 13:15 | disposition home health service (06) | DRG 560 ==
PROVIDERS: ADMIT Family Medicine; ATTEND Family Medicine
PROC: F07Z9FZ Gait Training/Functional Ambulation Treatment using Assistive, Adaptive, Supportive or Protective Equipment (ICD-10-PCS; 2018-01-07)
PROC: F07M6FZ Therapeutic Exercise Treatment of Musculoskeletal System - Whole Body using Assistive, Adaptive, Supportive or Protective Equipment (ICD-10-PCS; 2018-01-07)
PROC: F08Z4FZ Home Management Treatment using Assistive, Adaptive, Supportive or Protective Equipment (ICD-10-PCS; 2018-01-07)
PROC: 0HBRXZZ Excision of Toe Nail, External Approach (ICD-10-PCS; principal; 2018-01-19)
DX: S32.402D Unspecified fracture of left acetabulum, subsequent encounter for fracture with routine healing (principal); N39.0 Urinary tract infection, site not specified; S32.592D Other specified fracture of left pubis, subsequent encounter for fracture with routine healing; W19.XXXD Unspecified fall, subsequent encounter; Y92.009 Unspecified place in unspecified non-institutional (private) residence as the place of occurrence of the external cause; Z87.01 Personal history of pneumonia (recurrent); Z87.891 Personal history of nicotine dependence; E11.65 Type 2 diabetes mellitus with hyperglycemia; E78.5 Hyperlipidemia, unspecified; E86.0 Dehydration; I10 Essential (primary) hypertension; K59.00 Constipation, unspecified; M81.0 Age-related osteoporosis without current pathological fracture; M85.80 Other specified disorders of bone density and structure, unspecified site; L60.3 Nail dystrophy